=== PATIENT | female | born 1955 | race Caucasian/White ===

== ENCOUNTER 2016-04-05 17:54 | Emergency (ER) | payer MEDICARE, MEDICAID ==
[2016-04-05] MEDS ORDERED: Thiamine IV* 100 MG, Folic Acid IV* 1 MG, Multiple Vitamin IV ADULT* 10 ML in NS 0.9% 1... IV ONE (17:56)
[2016-04-05 18:44] LABS: Hematocrit 37 % (35-47); Mean Corpuscular HGB Conc 33 g/dl (31-36); Mean Corpuscular Hemoglobin 31 pg (27-31); Mean Corpuscular Volume 95 fL (80-97); Mean Platelet Volume 7 um3 (7.4-10.4); Red Blood Count 3.91 10^6/ul (4.0-5.4); Red Cell Distribution Width 15 % (10.5-15)
[2016-04-05 19:00] LABS: ALT 28 U/L (7-52); AST 99 U/L (13-39); Albumin 4.3 g/dL (3.2-5.2); Alkaline Phosphatase 61 U/L (34-104); Anion Gap 7 mmol/L (2-11); BUN/Creatinine Ratio 17.5 (8-20); Blood Urea Nitrogen 11 mg/dL (6-24); CO2 Carbon Dioxide 24 mmol/L (22-32); Calcium 9.1 mg/dL (8.6-10.3); Chloride 113 mmol/L (101-111); EGFR Non-African American 96.4 (>60); Globulin 2.5 g/dL (2-4); Glucose 92 mg/dL (70-100); Potassium 3.7 mmol/L (3.5-5.0); Sodium 144 mmol/L (133-145); Total Protein 6.8 g/dL (6.4-8.9)
[2016-04-05 19:29] LABS: TSH (Thyroid Stimulating Horm) 1.58 mcIU/mL (0.34-5.60)
[2016-04-05 19:59] LABS: Acetaminophen < 15 mcg/mL; Alcohol 296 mg/dL (<10); Salicylate < 2.50 mg/dL (<30)
[2016-04-05 21:49] VITALS: BP 117/63
[2016-04-05] MEDS ORDERED: Ibuprofen TAB* 600 MG PO ONE (22:11)
[2016-04-05] MEDS ORDERED: Ondansetron INJ* 2 MG/ML VIAL IV ONE (23:22)
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
== END 2016-04-06 00:07 | disposition home or self-care (01) ==
LOC: ED 17:54
DX: F10.129 Alcohol abuse with intoxication, unspecified (principal); T40.1X1A Poisoning by heroin, accidental (unintentional), initial encounter; Y92.9 Unspecified place or not applicable
CPT/HCPCS: 36415; 80053; 80320; 80329; 84443; 85025; 93005; 96365; 96375; 99283; A9270-GY; G0480; J2405; J3411

== ENCOUNTER 2016-05-24 21:22 | Inpatient (IN) | payer MEDICARE, MEDICAID ==
[2016-05-24] MEDS ORDERED: NS 0.9% 1000 ML* 1,000 ML IV ONE (21:23)
[2016-05-24 21:51] LABS: Hematocrit 41 % (35-47); Hemoglobin 13.5 g/dl (12.0-16.0); Mean Corpuscular HGB Conc 33 g/dl (31-36); Mean Corpuscular Hemoglobin 31 pg (27-31); Mean Corpuscular Volume 93 fL (80-97); Mean Platelet Volume 8 um3 (7.4-10.4); Red Blood Count 4.36 10^6/ul (4.0-5.4); Red Cell Distribution Width 14 % (10.5-15); White Blood Count 7.1 10^3/ul (3.5-10.8)
[2016-05-24 22:07] LABS: ALT 17 U/L (7-52); AST 27 U/L (13-39); Albumin 3.8 g/dL (3.2-5.2); Alkaline Phosphatase 48 U/L (34-104); Anion Gap 9 mmol/L (2-11); BUN/Creatinine Ratio 12.2 (8-20); Blood Urea Nitrogen 11 mg/dL (6-24); CO2 Carbon Dioxide 29 mmol/L (22-32); Chloride 100 mmol/L (101-111); Creatine Kinase 132 U/L (10-223); EGFR African American 82.1 (>60); EGFR Non-African American 63.9 (>60); Globulin 2.5 g/dL (2-4); Glucose 94 mg/dL (70-100); Potassium 2.8 mmol/L (3.5-5.0); Sodium 138 mmol/L (133-145); Total Protein 6.3 g/dL (6.4-8.9)
[2016-05-24 22:09] LABS: Troponin I 0.05 ng/mL (<0.04)
[2016-05-24 22:57] LABS: Acetaminophen < 15 mcg/mL; Alcohol < 10 mg/dL (<10)
[2016-05-24] MEDS: KCL 10 MEQ/50 ML IVPREMIX* 10 MEQ/50 ML BAG IV SCH (23:32)
[2016-05-25] MEDS: KCL 10 MEQ/50 ML IVPREMIX* 10 MEQ/50 ML BAG IV SCH ×5 (00:15→14:06)
[2016-05-25] MEDS ORDERED: LORazepam INJ* 2 MG/ML 1 ML VIAL IV PUSH ONE (01:47)
[2016-05-25] MEDS ORDERED: LORazepam INJ* 2 MG/ML 1 ML VIAL IV ONE ×2 (02:39→02:45)
[2016-05-25] MEDS ORDERED: Gabapentin CAP(*) 300 MG PO ONE (02:41)
[2016-05-25] MEDS ORDERED: LORazepam INJ* 2 MG/ML 1 ML VIAL ONE (02:45)
[2016-05-25] MEDS ORDERED: levETIRAcetam TAB* 500 MG PO ONE (02:58)
[2016-05-25] MEDS ORDERED: levETIRAcetam TAB* 500 MG ONE (03:06)
--- NOTE | 2016-05-25 03:23 | HP ---
H&P (Free Text) History and Physical: PCP: Antonio Gauthier MD Neurology: Dr Unger of [place] Date/Time of Evaluation: 05/25/2016 0325 CC: seizures HPI: Mrs Jack is a 61YO female HX seizures, alcoholism, and medication non- adherence presents reporting running out of her gabapentin ~1 week ago and running out of her levetiracetam 3 days ago due to not picking them up at the pharmacy. She began having intermittent rhythmic R myoclonus 3 days ago for which she decided to present for tonight. 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 While in the ED she has continued this. Additionally she reports a burning sensation in the R hand and to a lesser degree R foot. She is awake and alert without distress. She has been given two 1mg IV doses of lorazepam with mild improvement, but not yet breaking the seizure. I discussed the case with Dr De La O, neurology, who advised 1mg levetiracetam PO and that should the seizure break she could be discharged. However, without knowing how long she may take to break and given her known non-compliance and alcohol addiction I will CDU observe her and request a social service consult. PMedHx seizure disorder active alcoholism HTN L occipito-parietal CVA anxiety hepatitis C tobacco use disorder Allergies Iodinated Diagnostic Agents Allergy (Verified 05/25/16 01:07) Unknown Reaction Details Ketorolac Tromethamine [From Toradol] Adverse Reaction (Mild, Verified 05/25/16 01:07) Itching Ambulatory Orders Nursing to reconcile. Lidocaine PATCH 5%* [Lidoderm 5% Patch*] 1 patch TRANSDERM Q12HR 10/18/15 Multivitamins/Minerals TAB* [Theragran/minerals TAB*] 1 tab PO DAILY 10/18/15 PARoxetine HCL TAB* [Paxil TAB*] 10 mg PO DAILY 10/18/15 Gabapentin CAP(*) [Neurontin 300 CAP(*)] 600 mg PO BID #60 cap 10/20/15 Nicotine Inhaler* 10 mg INH .FIVE TIMES A DAY PRN #100 amp 10/20/15 levETIRAcetam TAB* [Keppra TAB*] 500 mg PO BID #60 tab 10/20/15 SocHx: 1/2PPD cigarettes, 1/2 pint Vodka daily, occasional marijuana, denies other recreational drugs; lives with her domestic partner, Antonio Gauthier; full code status FamHx: positive for colon CA, prostate CA, & HTN ROS: as above, otherwise reviewed and all were negative Constitutional: NAD, normally developed, well-nourished white female vitals: Vital Signs Temp 36.8 C 05/24/16 21:25 Pulse 87 05/25/16 02:00 Resp 32 05/25/16 02:48 BP 132/118 05/25/16 02:00 Pulse Ox 98 05/25/16 02:00 Intake & Output 05/24/16 05/24/16 05/25/16 11:59 23:59 11:59 Intake Total 1050 100 Balance 1050 100 Weight 68.039 kg Intake: IV Fluids 1050 100 HEENM: atraumatic; sclera/conjunctiva: non-icteric/clear; hearing: clinically intact; oropharynx: clear, mucosa moist Neck: soft tissue: non-tender; thyroid: normal Pulmonary: clear to auscultation bilaterally, good aeration, no accessory muscle use CV: RR/RR, normal S1S2, no carotid bruit, no jugular venous distention, 2+ B DP/ PT, no edema Abdominal: soft, non-distended, non-tender, no rebound/guarding/rigidity, normoactive bowel sounds, no hepatosplenomegaly or masses, no costovertebral angle tenderness Musculoskeletal: general: grossly intact; gait: currently unable to ambulate 2nd seizure Integumental: normal appearance and texture Psychiatric orientation: AA&O to PPS affect: calm mood: cooperative eye contact: good content: evasive responses: timely insight: poor Testing: Lab Results 05/24/16 05/24/16 05/24/16 Range/Units 21:35 21:35 21:35 WBC 7.1 (3.5-10.8) 10^3/ul RBC 4.36 (4.0-5.4) 10^6/ul Hgb 13.5 (12.0-16.0) g/dl Hct 41 (35-47) % MCV 93 (80-97) fL MCH 31 (27-31) pg MCHC 33 (31-36) g/dl RDW 14 (10.5-15) % Plt Count 282 (150-450) 10^3/ul MPV 8 (7.4-10.4) um3 Neut % (Auto) 53.5 (38-83) % Lymph % (Auto) 27.8 (25-47) % Rooks % (Auto) 15.6 H (1-9) % Eos % (Auto) 2.0 (0-6) % Baso % (Auto) 1.1 (0-2) % Absolute Neuts (auto) 3.8 (1.5-7.7) 10^3/ul Absolute Lymphs (auto) 2.0 (1.0-4.8) 10^3/ul Absolute Monos (auto) 1.1 H (0-0.8) 10^3/ul Absolute Eos (auto) 0.1 (0-0.6) 10^3/ul Absolute Basos (auto) 0.1 (0-0.2) 10^3/ul Absolute Nucleated RBC 0 10^3/ul Nucleated RBC % 0 INR (Anticoag Therapy) 1.06 (0.89-1.11) Sodium 138 (133-145) mmol/L Potassium 2.8 L (3.5-5.0) mmol/L Chloride 100 L (101-111) mmol/L Carbon Dioxide 29 (22-32) mmol/L Anion Gap 9 (2-11) mmol/L BUN 11 (6-24) mg/dL Creatinine 0.90 (0.51-0.95) mg/dL Est GFR ( Amer) 82.1 (>60) Est GFR (Non-Af Amer) 63.9 (>60) BUN/Creatinine Ratio 12.2 (8-20) Glucose 94 (70-100) mg/dL Lactic Acid (0.5-2.0) mmol/L Calcium 10.0 (8.6-10.3) mg/dL Total Bilirubin 0.60 (0.2-1.0) mg/dL AST 27 (13-39) U/L ALT 17 (7-52) U/L Alkaline Phosphatase 48 (34-104) U/L Ammonia (16-53) mol/L Total Creatine Kinase 132 (10-223) U/L Troponin I 0.05 H* (<0.04) ng/mL Total Protein 6.3 L (6.4-8.9) g/dL Albumin 3.8 (3.2-5.2) g/dL Globulin 2.5 (2-4) g/dL Albumin/Globulin Ratio 1.5 (1-3) Acetaminophen < 15 mcg/mL Serum Alcohol < 10 (<10) mg/dL 05/24/16 05/24/16 Range/Units 21:35 21:35 WBC (3.5-10.8) 10^3/ul RBC (4.0-5.4) 10^6/ul Hgb (12.0-16.0) g/dl Hct (35-47) % MCV (80-97) fL MCH (27-31) pg MCHC (31-36) g/dl RDW (10.5-15) % Plt Count (150-450) 10^3/ul MPV (7.4-10.4) um3 Neut % (Auto) (38-83) % Lymph % (Auto) (25-47) % Rooks % (Auto) (1-9) % Eos % (Auto) (0-6) % Baso % (Auto) (0-2) % Absolute Neuts (auto) (1.5-7.7) 10^3/ul Absolute Lymphs (auto) (1.0-4.8) 10^3/ul Absolute Monos (auto) (0-0.8) 10^3/ul Absolute Eos (auto) (0-0.6) 10^3/ul Absolute Basos (auto) (0-0.2) 10^3/ul Absolute Nucleated RBC 10^3/ul Nucleated RBC % INR (Anticoag Therapy) (0.89-1.11) Sodium (133-145) mmol/L Potassium (3.5-5.0) mmol/L Chloride (101-111) mmol/L Carbon Dioxide (22-32) mmol/L Anion Gap (2-11) mmol/L BUN (6-24) mg/dL Creatinine (0.51-0.95) mg/dL Est GFR ( Amer) (>60) Est GFR (Non-Af Amer) (>60) BUN/Creatinine Ratio (8-20) Glucose (70-100) mg/dL Lactic Acid 2.0 (0.5-2.0) mmol/L Calcium (8.6-10.3) mg/dL Total Bilirubin (0.2-1.0) mg/dL AST (13-39) U/L ALT (7-52) U/L Alkaline Phosphatase (34-104) U/L Ammonia 58 H (16-53) mol/L Total Creatine Kinase (10-223) U/L Troponin I (<0.04) ng/mL Total Protein (6.4-8.9) g/dL Albumin (3.2-5.2) g/dL Globulin (2-4) g/dL Albumin/Globulin Ratio (1-3) Acetaminophen mcg/mL Serum Alcohol (<10) mg/dL Impression: 61F presenting in status simple partial seizure 2nd medication non- adherence & active alcoholism DIAGNOSIS & PLAN Primary status simple partial seizure 2nd medication non-adherence : 1g levetiracetam PO, 600mg gabapentin PO, & 1mg lorazepam IV x2 given in ED : telemetry : seizure precautions : social service technician consult : supplemental oxygen : check UA : social service technician consult : Mckinley De La O MD neurology is aware, but not consulted : supportive care hypoKalemia : replete & recheck Secondary active alcoholism : social service technician consult as above : [facility] protocol HTN : review meds once reconciled L occipito-parietal CVA : seizure focus, no acute issues anxiety : review meds once reconciled hepatitis C : no acute issues tobacco use disorder : cessation advised, low motivation : nicotine replacement Admission Rational: CDU observation for status R simple partial seizure 2nd medication non-adherence and alcoholism DVTp: SCDs Code Status: full HCP: domestic partner, Antonio Gauthier
[2016-05-25] MEDS ORDERED: Ondansetron INJ* 2 MG/ML VIAL IV PRN (03:57)
[2016-05-25] MEDS ORDERED: Albuterol 2.5 MG/3 ML NEB.SOL* (0.083%) INH PRN (03:57)
[2016-05-25] MEDS ORDERED: Thiamine IV* 100 MG/ML 2 ML VIAL IM ONE (03:58)
[2016-05-25] MEDS ORDERED: LORazepam INJ* 2 MG/ML 1 ML VIAL IV SCH (04:00)
[2016-05-25] MEDS: NS 0.9% 1000 ML* 1,000 ML IV SCH ×2 (05:15→17:21)
[2016-05-25 06:51] LABS: BUN/Creatinine Ratio 20.8 (8-20); Calcium 8.5 mg/dL (8.6-10.3); EGFR African American 151.3 (>60); EGFR Non-African American 117.7 (>60)
[2016-05-25 07:17] LABS: Potassium 2.6 mmol/L (3.5-5.0)
[2016-05-25 07:56] LABS: Magnesium 1.5 mg/dL (1.9-2.7)
[2016-05-25] MEDS ORDERED: Magnesium Sulfate 2 GM IV* 2 GM/50 ML BAG IVPB ONE (08:25)
[2016-05-25 08:53] LABS: Troponin I 0.04 ng/mL (<0.04)
[2016-05-25] MEDS: levETIRAcetam TAB* 500 MG PO SCH ×2 (09:10→23:17)
[2016-05-25] MEDS ORDERED: LORazepam TAB(*) 1 MG PO ONE (09:16)
[2016-05-25] MEDS: Potassium Chlor TAB* 20 MEQ TAB.ER PO SCH ×2 (09:40→12:39)
[2016-05-25] MEDS: Gabapentin CAP(*) 300 MG PO SCH ×3 (09:40→23:15)
[2016-05-25] MEDS: Docusate CAP* 100 MG PO SCH ×2 (09:43→23:14)
[2016-05-25] MEDS: Omeprazole CAP* 20 MG PO SCH (09:43)
[2016-05-25] MEDS: Folic Acid TAB* 1 MG PO SCH (09:43)
[2016-05-25] MEDS: Multivitamins/Minerals TAB PO SCH (10:50)
[2016-05-25] MEDS: Thiamine TAB* 100 MG TAB PO SCH (10:50)
[2016-05-25 10:59] LABS: Urine Bacteria Absent (Absent); Urine Bilirubin Negative (Negative); Urine Glucose Negative (Negative); Urine Nitrite Negative (Negative)
[2016-05-25 11:01] LABS: Benzodiazepine Urine Screen Presumptive Positive (None Detect)
[2016-05-25] MEDS ORDERED: KCL 10 MEQ/50 ML IVPREMIX* 10 MEQ/50 ML BAG ONE ×2 (14:04→17:15)
[2016-05-25 15:06] LABS: Calcium 8.8 mg/dL (8.6-10.3); EGFR African American 161.9 (>60); EGFR Non-African American 125.9 (>60)
[2016-05-25 15:40] LABS: Potassium 3.4 mmol/L (3.5-5.0)
--- NOTE | 2016-05-25 17:18 | PN ---
Subjective Date of Service: 05/25/16 Interval History: Seen and examined several times throughout the day Admits to medication on adherence Interested in going home but remains week and was unable to stand to be discharged Has no other complaints Objective Active Medications: Acetaminophen (Tylenol Tab*) 650 mg PO Q6H PRN PRN Reason: FEVER/PAIN Albuterol (Ventolin 2.5 Mg/3 Ml Neb.Maria Luisa*) 2.5 mg INH Q2H PRN PRN Reason: SOB/WHEEZING Docusate Sodium (Colace Cap*) 200 mg PO BID [facility] Last Admin: 05/25/16 09:43 Dose: 200 mg Folic Acid (Folvite Tab*) 1 mg PO DAILY [facility] Last Admin: 05/25/16 09:43 Dose: 1 mg Gabapentin (Neurontin Cap(*)) 300 mg PO TID [facility] Last Admin: 05/25/16 13:11 Dose: 300 mg Sodium Chloride (Ns 0.9% 1000 Ml*) 1,000 mls @ 75 mls/hr IV PER RATE [facility] Last Admin: 05/25/16 05:15 Dose: 75 mls/hr Lactulose (Lactulose*) 30 ml PO TID [facility] Levetiracetam (Keppra Tab*) 500 mg PO BID [facility] Last Admin: 05/25/16 09:10 Dose: 500 mg Lorazepam (Ativan Inj*) 0 mg IV .PER WAM SCORE [facility] PRN Reason: Protocol Melatonin (Melatonin (Nf)) 3 mg PO BEDTIME PRN; Protocol PRN Reason: Sleep Multivitamins/Minerals (Theragran/Minerals Tab*) 1 tab PO DAILY [facility] Last Admin: 05/25/16 10:50 Dose: 1 tab Omeprazole (Prilosec Cap*) 20 mg PO DAILY@0600 [facility] Last Admin: 05/25/16 09:43 Dose: 20 mg Ondansetron HCl (Zofran Inj*) 4 mg IV Q6H PRN PRN Reason: NAUSEA Thiamine HCl (Vitamin B-1 Tab*) 100 mg PO DAILY [facility] Last Admin: 05/25/16 10:50 Dose: 100 mg Vital Signs 05/25/16 05/25/16 05/25/16 02:48 03:00 03:30 Temperature Pulse Rate 85 Respiratory 32 23 27 Rate Blood Pressure 128/91 (mmHg) O2 Sat by Pulse 97 Oximetry 05/25/16 05/25/16 05/25/16 04:00 05:10 05:19 Temperature 98.0 F Pulse Rate 80 Respiratory 29 20 20 Rate Blood Pressure 136/87 130/88 (mmHg) O2 Sat by Pulse 98 Oximetry 05/25/16 05/25/16 05/25/16 07:00 08:00 08:52 Temperature 97.4 F 97.3 F Pulse Rate 72 81 69 Respiratory 20 22 24 Rate Blood Pressure 121/78 131/87 (mmHg) O2 Sat by Pulse 95 98 99 Oximetry 05/25/16 05/25/16 05/25/16 09:00 09:39 09:40 Temperature Pulse Rate Respiratory 18 18 18 Rate Blood Pressure (mmHg) O2 Sat by Pulse Oximetry 05/25/16 05/25/16 05/25/16 10:01 11:02 11:39 Temperature 98.5 F Pulse Rate 84 79 Respiratory 16 16 Rate Blood Pressure 111/86 116/75 (mmHg) O2 Sat by Pulse 99 99 Oximetry 05/25/16 05/25/16 05/25/16 11:40 13:03 13:11 Temperature 98.2 F Pulse Rate 86 Respiratory 16 20 18 Rate Blood Pressure 109/66 (mmHg) O2 Sat by Pulse 100 Oximetry 05/25/16 05/25/16 15:11 15:17 Temperature 98.5 F Pulse Rate 81 Respiratory 18 18 Rate Blood Pressure 107/74 (mmHg) O2 Sat by Pulse 100 Oximetry Appearance: disheveled, NAD Eyes: No Scleral Icterus, PERRLA Ears/Nose/Mouth/Throat: Mucous Membranes Moist, - - poor dentition Neck: NL Appearance and Movements; NL JVP, Trachea Midline Respiratory: Symmetrical Chest Expansion and Respiratory Effort, Clear to Auscultation Cardiovascular: RRR Abdominal: NL Sounds; No Tenderness; No Distention, No Hepatosplenomegaly Lymphatic: No Cervical Adenopathy Extremities: No Edema Neurological: Alert and Oriented x 3 Result Diagrams: 05/24/16 21:35 05/25/16 14:30 Assess/Plan/Problems-Billing Assessment: 61 yo F h/o CVA c/b seizure disorder, active etoh abuse and med non adherence p/ w partial seizures - Patient Problems (1) Seizure disorder Comment: keppra 1000mg on arrival and ativan c/w keppra 500BID (2) Hepatic encephalopathy Comment: More lethargic in afternoon Start lactulose and follow for improved mentation doubt post ictal state in setting of partial seizures (3) Polysubstance abuse Comment: opioids, benzo, MJ on utox WAM for etoh withdrawal (4) Non compliance with medical treatment Comment: counseled compliance (5) DVT prophylaxis Comment: heparin sc.
[2016-05-25] MEDS ORDERED: Potassium Chlor TAB* 20 MEQ TAB.ER PO ONE (17:19)
[2016-05-25 18:17] LABS: EGFR African American 161.9 (>60); EGFR Non-African American 125.9 (>60); Potassium 3.7 mmol/L (3.5-5.0)
[2016-05-25] MEDS: LACTULOSE* 30 ML UDC PO SCH (23:19)
[2016-05-25] MEDS: Heparin VIAL(*) 5000 UNITS/ML VIAL (FIVE THOUSAND) SUBCUT SCH (23:21)
[2016-05-25] MEDS: Acetaminophen TAB* 325 MG PO PRN (23:39)
[2016-05-26] MEDS: CMCS Melatonin (NF) 3 MG TAB PO PRN ×2 (02:08→21:43)
[2016-05-26] MEDS: Heparin VIAL(*) 5000 UNITS/ML VIAL (FIVE THOUSAND) SUBCUT SCH ×3 (05:35→21:43)
[2016-05-26] MEDS: Omeprazole CAP* 20 MG PO SCH (05:37)
[2016-05-26 05:41] LABS: BUN/Creatinine Ratio 16.7 (8-20); Calcium 8.7 mg/dL (8.6-10.3); EGFR African American 197.9 (>60); EGFR Non-African American 153.9 (>60); Potassium 3.8 mmol/L (3.5-5.0)
[2016-05-26] MEDS: NS 0.9% 1000 ML* 1,000 ML IV SCH (08:05)
[2016-05-26] MEDS: LACTULOSE* 30 ML UDC PO SCH ×3 (08:05→20:44)
[2016-05-26] MEDS: levETIRAcetam TAB* 500 MG PO SCH ×2 (08:06→20:44)
[2016-05-26] MEDS: Folic Acid TAB* 1 MG PO SCH (08:06)
[2016-05-26] MEDS: Multivitamins/Minerals TAB PO SCH (08:06)
[2016-05-26] MEDS: Thiamine TAB* 100 MG TAB PO SCH (08:06)
[2016-05-26] MEDS: Gabapentin CAP(*) 300 MG PO SCH ×3 (08:06→20:43)
[2016-05-26] MEDS: Docusate CAP* 100 MG PO SCH ×2 (08:07→20:43)
[2016-05-26] MEDS: LORazepam TAB(*) 1 MG PO SCH ×3 (10:31→15:29)
--- NOTE | 2016-05-26 12:53 | RAD ---
INDICATION: Right arm weakness COMPARISON: Multiple previous brain CTs, most recently dated October 18, 2015 TECHNIQUE: Contiguous axial sections of the brain were obtained from the skull base to the vertex without contrast. FINDINGS: The ventricles, cisterns and sulci are within normal limits. At the posterior right parietal lobe (image 20 of 32) there is a 2.5 cm cortical hypodensity that is similar in appearance to findings on the October 18, 2015 CT of the brain. Elsewhere the weiss-white matter differentiation is adequately maintained and there is no sulcal effacement. No significant focal abnormality or mass effect is present. There is no evidence for intracranial hemorrhage. No significant focal osseous abnormality is present. There is a minor degree of hyperostosis frontalis interna. The visualized portion of the paranasal sinuses and mastoid air cells appear clear. IMPRESSION: Stable focus of encephalomalacia involving the cortex of the posterior left parietal lobe as described above in this otherwise nonacute brain CT.
--- NOTE | 2016-05-26 14:52 | CONSULT ---
Consult Consult: 05/26/16 neurology consult 61 yo RHF, etoh/polysubstance abuse, localization related seizure disorder (in context of chronic left parieto-occipital encephalomalacia on imaging (? due to stroke vs she also suggests remote TBI vs 09/13 consult suggests PRES), prior seizures per notes with post ictal right hemiparesis and/or sensory deficits ( she concurs), at times right gaze deviation and/or field cut), HTN, HCV, presented night of 05/24 w/ right arm jerking movements and right arm and leg paresthesias in context of med non adherence/running out of seizure meds. Given Ativan and keppra load in ED for suspected breakthrough seizure; since being admitted 05/25 overnight had had persistent variable R sided weakness and sensory asymmetry. She suggests baseline chronic R sided sensory asym but good motor functional use; no gait assist devices. Prior neuro consult notes reviewed seen by dr reyes 10/16 (seizure; possible Xanax withdrawal), dr jeter 12/15. She has seen dr Peters in clinic in the past (she says couple times and not recently), has been on PHE, VPA, and more recently on LEV 500 bid and john 300 tid, with compliance concerns per hospital records regardless of agent. She no longer sees Dr Peters; says she now sees a Dr Liu in [facility]. Also states that she is on Ativan 0.5mg bid (ostensibly for seizure rescue but uses daily). Allergies/Meds per may PMH - as above, plus: L femur ORIF, suicide attempt/drug OD, hepatic encephalopathy FH - htn, colon and prostate ca per chart SH - lives with partner, THC, tobacco and daily etoh use ROS - 10 point review limited by altered mental status/limited cooperation 10 point review as per hpi, otherwise negative general Examination: no apparent distress, no edema, female of stated age; vs per emr Neurologic Examination Mental Status: alert and oriented; affect reactive, no neglect, fluent speech Cranial Nerves: Funduscopy deferred, otherwise II-XII intact; vega full to confrontation Motor: normal bulk, tone throughout; no tremor; right arm and leg motor variable effort and better with coaching, but at least antigravity vs left side normal. At times has non rhythmic right arm dropping motions. Right arm drift. Sensory: vibration decreased comparatively right side Reflexes: 2 throughout symmetrically. Plantar responses are equivocal Coordination: weakness limited left Gait: deferred Serologies: - Chem, CBC, coags, trop, LA, LFTs, cpk, NH3 are all normal or negative; K low admission, now corrected; ua + LE; UDS opiate, benzo, THC positive - Priors: esr, aic, b12, tsh, pth, bnp, spep, hiv were all neg; csg analysis essentially neg Imaging: - head CT reviewed (multiple prior CTs and brain MRIs (last of latter 12/15) and has remote stable left parieto-occipital encephalomalacia - 09/13 mra head and neck negative - 11/[address] neg - TTE 09/14 neg - 10/16 cxr neg Phys: mult EEGs variably had enceph and L temp/hemisphere inter ictal discharges Impression: 61 yo RHF, HTN, HCV, ongoing etoh/history of polysubstance abuse, localization related seizure disorder (in context of chronic left parieto-occipital encephalomalacia, with history of post ictal right hemiparesis and/or sensory deficits, p/w likely recurrent partial seizures in context of med non adherence /running out of seizure meds. Has had persistent variable R sided weakness and sensory asymmetry, with variable effort on exam, ie may represent any combination of post ictal deficit, baseline deficit (all hospital evals bijan or post ictal so baseline function unclear; she suggests predom sensory asymmetry) , embellishment. encouraged to exercise right side, etoh abstention, adherence to AED regimen (per her currently managed not through local neuro group). would cont 2 AEDs, get PT involved. unclear to me also why she is on daily benzos ( history of ? withdrawal and possibly related seizure in past), inocencio given polysubstance use and h/o OD in past.
--- NOTE | 2016-05-26 16:19 | PN ---
Subjective Date of Service: 05/26/16 Interval History: Endorses WAY, anxiety and tremor. Denies visual, auditory, tactile hallucinations Feels she does not have control of right arm and leg Objective Active Medications: Acetaminophen (Tylenol Tab*) 650 mg PO Q6H PRN PRN Reason: FEVER/PAIN Last Admin: 05/25/16 23:39 Dose: 650 mg Albuterol (Ventolin 2.5 Mg/3 Ml Neb.Maria Luisa*) 2.5 mg INH Q2H PRN PRN Reason: SOB/WHEEZING Docusate Sodium (Colace Cap*) 200 mg PO BID [facility] Last Admin: 05/26/16 08:07 Dose: 200 mg Folic Acid (Folvite Tab*) 1 mg PO DAILY [facility] Last Admin: 05/26/16 08:06 Dose: 1 mg Gabapentin (Neurontin Cap(*)) 300 mg PO TID [facility] Last Admin: 05/26/16 13:54 Dose: 300 mg Heparin Sodium (Porcine) (Heparin Vial(*)) 5,000 units SUBCUT Q8HR [facility] Last Admin: 05/26/16 13:54 Dose: 5,000 units Lactulose (Lactulose*) 30 ml PO TID [facility] Last Admin: 05/26/16 13:54 Dose: 30 ml Levetiracetam (Keppra Tab*) 500 mg PO BID [facility] Last Admin: 05/26/16 08:06 Dose: 500 mg Lorazepam (Ativan Tab(*)) 0 mg PO .PER WAM SCORE [facility] PRN Reason: Protocol Last Admin: 05/26/16 15:29 Dose: 1 mg Melatonin (Melatonin (Nf)) 3 mg PO BEDTIME PRN; Protocol PRN Reason: Sleep Last Admin: 05/26/16 02:08 Dose: 3 mg Multivitamins/Minerals (Theragran/Minerals Tab*) 1 tab PO DAILY [facility] Last Admin: 05/26/16 08:06 Dose: 1 tab Omeprazole (Prilosec Cap*) 20 mg PO DAILY@0600 [facility] Last Admin: 05/26/16 05:37 Dose: Not Given Ondansetron HCl (Zofran Inj*) 4 mg IV Q6H PRN PRN Reason: NAUSEA Last Admin: 05/26/16 08:05 Dose: 4 mg Thiamine HCl (Vitamin B-1 Tab*) 100 mg PO DAILY [facility] Last Admin: 05/26/16 08:06 Dose: 100 mg Vital Signs 05/25/16 05/25/16 05/25/16 17:43 19:14 19:15 Temperature 97.7 F 97.9 F Pulse Rate 95 93 Respiratory 19 20 Rate Blood Pressure 97/28 102/60 (mmHg) O2 Sat by Pulse 82 Oximetry 05/25/16 05/25/16 05/25/16 19:32 21:33 23:15 Temperature 98.7 F Pulse Rate 82 Respiratory 20 20 20 Rate Blood Pressure 111/77 (mmHg) O2 Sat by Pulse 98 Oximetry 05/25/16 05/26/16 05/26/16 23:33 00:55 01:17 Temperature 98.1 F 97.5 F Pulse Rate 81 83 78 Respiratory 16 20 16 Rate Blood Pressure 141/86 107/81 (mmHg) O2 Sat by Pulse 100 97 100 Oximetry 05/26/16 05/26/16 05/26/16 03:31 05:08 08:06 Temperature 97.4 F Pulse Rate 80 78 Respiratory 16 16 20 Rate Blood Pressure 113/80 126/87 (mmHg) O2 Sat by Pulse 94 96 Oximetry 05/26/16 05/26/16 05/26/16 08:50 09:22 10:06 Temperature 99.3 F Pulse Rate 68 77 Respiratory 18 16 18 Rate Blood Pressure 117/76 (mmHg) O2 Sat by Pulse 99 99 Oximetry 05/26/16 05/26/16 05/26/16 10:30 10:31 12:31 Temperature Pulse Rate Respiratory 18 18 16 Rate Blood Pressure (mmHg) O2 Sat by Pulse Oximetry 05/26/16 05/26/16 05/26/16 13:28 13:54 13:55 Temperature 99.8 F Pulse Rate 77 Respiratory 16 18 18 Rate Blood Pressure 114/83 (mmHg) O2 Sat by Pulse 97 Oximetry 05/26/16 05/26/16 05/26/16 15:10 15:29 15:54 Temperature 97.5 F Pulse Rate 70 Respiratory 18 18 16 Rate Blood Pressure 172/152 (mmHg) O2 Sat by Pulse 96 Oximetry 05/26/16 15:55 Temperature Pulse Rate Respiratory 16 Rate Blood Pressure (mmHg) O2 Sat by Pulse Oximetry Oxygen Devices in Use Now: None Appearance: disheveled Eyes: No Scleral Icterus, PERRLA Ears/Nose/Mouth/Throat: Mucous Membranes Moist, - - poor dentition Neck: NL Appearance and Movements; NL JVP, Trachea Midline Respiratory: Symmetrical Chest Expansion and Respiratory Effort, Clear to Auscultation Cardiovascular: RRR Abdominal: NL Sounds; No Tenderness; No Distention, No Hepatosplenomegaly Neurological: Alert and Oriented x 3, - - low frequency tremor in right arm an dleg resolves with distraction, +asterixis, 2/5 strength in right arm and leg but at times is able to produce more strength when coached Result Diagrams: 05/24/16 21:35 05/26/16 05:18 Microbiology and Other Data: Microbiology 05/25/16 10:12 Urine Culture - Final Urine Assess/Plan/Problems-Billing Assessment: 61 yo F h/o CVA c/b seizure disorder, active etoh abuse and med non adherence p/ w partial seizures c/b right arm and leg weakness - Patient Problems (1) Seizure disorder Comment: keppra 1000mg on arrival and ativan c/w keppra 500BID post ictal states in past have been notable for right arm and leg weakness and uncoordination similar to this stay. Strength and fxn have been variable throughout the day. Was seen by PT and GEORGE has been recommended which I discussed with pt (2) Hepatic encephalopathy Comment: lactulose started with improved mentation (3) Polysubstance abuse Comment: opioids, benzo, MJ on utox WAM for etoh withdrawal (4) Non compliance with medical treatment Comment: counseled compliance (5) DVT prophylaxis Comment: heparin sc.
[2016-05-27] MEDS: Acetaminophen TAB* 325 MG PO PRN ×3 (04:04→20:21)
[2016-05-27] MEDS: Heparin VIAL(*) 5000 UNITS/ML VIAL (FIVE THOUSAND) SUBCUT SCH ×3 (06:01→22:09)
[2016-05-27] MEDS: Omeprazole CAP* 20 MG PO SCH (06:02)
[2016-05-27] MEDS ORDERED: Influenza VAC *QUAD* 2016-17* 0.5 ML SYRINGE IM ONE (09:00)
[2016-05-27] MEDS: LACTULOSE* 30 ML UDC PO SCH ×3 (09:21→20:19)
[2016-05-27] MEDS: Gabapentin CAP(*) 300 MG PO SCH ×3 (09:21→20:20)
[2016-05-27] MEDS: Multivitamins/Minerals TAB PO SCH (09:23)
[2016-05-27] MEDS: Docusate CAP* 100 MG PO SCH ×2 (09:23→20:23)
[2016-05-27] MEDS: Thiamine TAB* 100 MG TAB PO SCH (09:23)
[2016-05-27] MEDS: levETIRAcetam TAB* 500 MG PO SCH ×2 (09:24→20:22)
[2016-05-27] MEDS: Folic Acid TAB* 1 MG PO SCH (09:24)
[2016-05-27] MEDS: LORazepam TAB(*) 1 MG PO PRN ×2 (09:24→20:21)
[2016-05-27] MEDS ORDERED: levETIRAcetam TAB* 500 MG PO ONE (14:14)
--- NOTE | 2016-05-27 14:27 | PN ---
Progress Note - Progress Note SOAP: 05/27/16 neurology follow up note 61 yo RHF, etoh/polysubstance abuse, hepatic encephalopathy, depression/h/o OD, localization related seizure disorder (in context of chronic left parieto- occipital encephalomalacia on imaging, seizures with post ictal right hemiparesis and/or sensory issues, presented night of 05/24 w/ right arm jerking movements and right arm and leg paresthesias in context of med non adherence/ running out of seizure meds. Given Ativan and keppra load in ED for suspected breakthrough seizure; since being admitted 05/25 overnight had had persistent variable R sided weakness and sensory asymmetry. Outpatient compliance poor; unclear with whom she is following neuro chavez (has seen dr Peters in past; now says she saw Dr Liu in [place] just once). Has been back on baseline LEV 500 bid and john 300 tid for past 2+ days. EEG done today reviewed and has inter ictal L temp spikes, and an ictal event consisting of L parietal alpha activity then slowing, preceded by her noting she is going to have a seizure and burning right sided dysesthesias (but only as seizure aura; denies dysesthesias at other times) Exam with improved right arm weakness c/w yest; some drift; right leg variable effort i/p: 61 yo RHF, etoh/polysubstance abuse, h/o hepatic encephalopathy, depression w/ h /o OD, localization related seizure disorder (in context of chronic left parieto -occipital encephalomalacia on imaging and med non compliance. Plan d/w med team and agreed on: 1. keppra 1000mg po load, then inc maint to 500mg tid 2. john 300mg tid continue 3. PT, ? rehab 4. longterm neuro follow up TBD
[2016-05-27] MEDS ORDERED: LORazepam INJ* 2 MG/ML 1 ML VIAL IV PUSH ONE (14:40)
[2016-05-27] MEDS ORDERED: Mouth Piece, Nicotine* 1 EACH CARTRIDGE ONE (17:11)
[2016-05-27] MEDS: Nicotine Inhaler* 10 MG AMP INH PRN (17:12)
--- NOTE | 2016-05-27 18:15 | PN ---
Subjective Date of Service: 05/27/16 Interval History: pt c/o intermittent R arm shaking and "muscle spasms" in R arm and R leg Requests Ativan Objective Active Medications: Acetaminophen (Tylenol Tab*) 650 mg PO Q6H PRN PRN Reason: FEVER/PAIN Last Admin: 05/27/16 13:45 Dose: 650 mg Albuterol (Ventolin 2.5 Mg/3 Ml Neb.Maria Luisa*) 2.5 mg INH Q2H PRN PRN Reason: SOB/WHEEZING Docusate Sodium (Colace Cap*) 200 mg PO BID [facility] Last Admin: 05/27/16 09:23 Dose: 200 mg Folic Acid (Folvite Tab*) 1 mg PO DAILY [facility] Last Admin: 05/27/16 09:24 Dose: 1 mg Gabapentin (Neurontin Cap(*)) 300 mg PO TID [facility] Last Admin: 05/27/16 13:45 Dose: 300 mg Heparin Sodium (Porcine) (Heparin Vial(*)) 5,000 units SUBCUT Q8HR [facility] Last Admin: 05/27/16 13:46 Dose: 5,000 units Lactulose (Lactulose*) 30 ml PO TID [facility] Last Admin: 05/27/16 13:46 Dose: 30 ml Levetiracetam (Keppra Tab*) 500 mg PO TID [facility] Lorazepam (Ativan Tab(*)) 0 mg PO .PER WAM SCORE [facility] PRN Reason: Protocol Last Admin: 05/26/16 15:29 Dose: 1 mg Lorazepam (Ativan Tab(*)) 1 mg PO Q12H PRN PRN Reason: ANXIETY Last Admin: 05/27/16 09:24 Dose: 1 mg Melatonin (Melatonin (Nf)) 3 mg PO BEDTIME PRN; Protocol PRN Reason: Sleep Last Admin: 05/26/16 21:43 Dose: 3 mg Multivitamins/Minerals (Theragran/Minerals Tab*) 1 tab PO DAILY [facility] Last Admin: 05/27/16 09:23 Dose: 1 tab Nicotine (Nicotine Inhaler*) 10 mg INH Q2H PRN PRN Reason: CRAVING Last Admin: 05/27/16 17:12 Dose: 10 mg Omeprazole (Prilosec Cap*) 20 mg PO DAILY@0600 [facility] Last Admin: 05/27/16 06:02 Dose: 20 mg Ondansetron HCl (Zofran Inj*) 4 mg IV Q6H PRN PRN Reason: NAUSEA Last Admin: 05/26/16 08:05 Dose: 4 mg Thiamine HCl (Vitamin B-1 Tab*) 100 mg PO DAILY [facility] Last Admin: 05/27/16 09:23 Dose: 100 mg Vital Signs 05/26/16 05/26/16 05/26/16 20:00 20:10 20:43 Temperature 98.2 F Pulse Rate 76 87 Respiratory 18 20 20 Rate Blood Pressure 108/73 (mmHg) O2 Sat by Pulse 100 81 Oximetry 05/26/16 05/26/16 05/26/16 21:00 21:26 22:43 Temperature 97.4 F 97.4 F Pulse Rate 76 76 Respiratory 18 18 18 Rate Blood Pressure 115/85 115/85 (mmHg) O2 Sat by Pulse 100 100 Oximetry 05/26/16 05/27/16 05/27/16 23:48 01:22 03:07 Temperature Pulse Rate 90 86 75 Respiratory 22 Rate Blood Pressure 114/75 130/97 132/80 (mmHg) O2 Sat by Pulse 98 98 Oximetry 05/27/16 05/27/16 05/27/16 03:43 03:51 04:13 Temperature 97.8 F 97.8 F Pulse Rate 84 84 92 Respiratory 18 Rate Blood Pressure 131/81 131/81 110/74 (mmHg) O2 Sat by Pulse 98 98 100 Oximetry 05/27/16 05/27/16 05/27/16 04:42 06:05 06:53 Temperature Pulse Rate 77 73 82 Respiratory 19 16 Rate Blood Pressure 136/78 105/73 100/71 (mmHg) O2 Sat by Pulse 85 99 98 Oximetry 05/27/16 05/27/16 05/27/16 07:50 09:21 09:24 Temperature Pulse Rate Respiratory 20 12 18 Rate Blood Pressure (mmHg) O2 Sat by Pulse Oximetry 05/27/16 05/27/16 05/27/16 09:40 09:48 10:43 Temperature 97.2 F 97.7 F Pulse Rate 66 80 80 Respiratory 19 16 14 Rate Blood Pressure 114/82 112/77 (mmHg) O2 Sat by Pulse 96 100 100 Oximetry 05/27/16 05/27/16 05/27/16 11:21 11:30 13:45 Temperature 97.6 F Pulse Rate 78 Respiratory 16 16 18 Rate Blood Pressure 96/62 (mmHg) O2 Sat by Pulse 99 Oximetry 05/27/16 05/27/16 05/27/16 15:14 15:45 16:03 Temperature 97.7 F Pulse Rate 83 Respiratory 20 18 Rate Blood Pressure 107/75 (mmHg) O2 Sat by Pulse 99 99 Oximetry Oxygen Devices in Use Now: None Appearance: 61 yo f in nAd, aAOx3, poor historian Eyes: No Scleral Icterus, PERRLA Ears/Nose/Mouth/Throat: NL Teeth, Lips, Gums, Mucous Membranes Moist Neck: NL Appearance and Movements; NL JVP, Trachea Midline Respiratory: Symmetrical Chest Expansion and Respiratory Effort, Clear to Auscultation Cardiovascular: NL Sounds; No Murmurs; No JVD, RRR Abdominal: NL Sounds; No Tenderness; No Distention Lymphatic: No Cervical Adenopathy Extremities: No Edema, No Clubbing, Cyanosis Skin: No Rash or Ulcers, No Nodules or Sclerosis Neurological: Alert and Oriented x 3, - - R pronator drift, R arm at 4+/5 Result Diagrams: 05/24/16 21:35 05/26/16 05:18 Microbiology and Other Data: Microbiology 05/25/16 10:12 Urine Culture - Final Urine Assess/Plan/Problems-Billing Assessment: 61 yo F h/o CVA c/b seizure disorder, active etoh abuse and med non adherence p/ w partial seizures c/b right arm and leg weakness - Patient Problems (1) Seizure disorder Comment: according to EEG pt has epileptiform discharges when c/o r arm muscle spasms. D/w neurology. will increase Keppra to TID. Cont Neurontin. Also will keep Ativan at a minimal dose due to h/o benzodiazepine OD in the past. PT eval appreciated . STR recommended CT shows known left encephalomalacia (2) Hepatic encephalopathy Comment: lactulose started with improved mentation Resolved. will decrease Lactulose to BID (3) Polysubstance abuse Comment: opioids, benzo, MJ on urine drug screen WAM for etoh withdrawal cont (4) Non compliance with medical treatment Comment: counseled compliance (5) DVT prophylaxis Comment: heparin sc. Status and Disposition: Medically stable for discharge
[2016-05-27] MEDS: CMCS Melatonin (NF) 3 MG TAB PO PRN (20:23)
[2016-05-28] MEDS: Omeprazole CAP* 20 MG PO SCH (05:28)
[2016-05-28] MEDS: Heparin VIAL(*) 5000 UNITS/ML VIAL (FIVE THOUSAND) SUBCUT SCH ×3 (05:31→20:54)
[2016-05-28] MEDS: Nicotine Inhaler* 10 MG AMP INH PRN ×2 (06:13→14:07)
[2016-05-28] MEDS: levETIRAcetam TAB* 500 MG PO SCH ×3 (07:39→20:44)
[2016-05-28] MEDS: LACTULOSE* 30 ML UDC PO SCH ×2 (07:39→20:44)
[2016-05-28] MEDS: Gabapentin CAP(*) 300 MG PO SCH ×3 (07:39→20:43)
[2016-05-28] MEDS: LORazepam TAB(*) 1 MG PO PRN ×2 (07:39→20:53)
[2016-05-28] MEDS: Thiamine TAB* 100 MG TAB PO SCH (07:39)
[2016-05-28] MEDS: Multivitamins/Minerals TAB PO SCH (07:40)
[2016-05-28] MEDS: Folic Acid TAB* 1 MG PO SCH (07:40)
[2016-05-28] MEDS: Docusate CAP* 100 MG PO SCH ×3 (07:42→20:47)
--- NOTE | 2016-05-28 15:15 | EEG ---
ELECTROENCEPHALOGRAPHY: DATE OF STUDY: DATE OF DICTATION: 05/28/16 - ROOM #416 LOCATION: The patient is an inpatient. ORDERING PHYSICIAN: Not listed. CLINICAL PROBLEM: This is a 61-year-old woman with a history of seizures, alcohol abuse, as well as medication noncompliance and stroke in the left parietooccipital region. She came to the emergency department with complaints of a burning sensation in the right hand and to a lesser degree in the right foot. EEG is requested to evaluate for epileptiform abnormalities. MEDICATIONS: 1. Lorazepam. 2. Zofran. 3. Melatonin. 4. Albuterol. 5. Tylenol. 6. Omeprazole. 7. Heparin. 8. Vitamin B1. 9. Multivitamin. 10. Levetiracetam. 11. Lactulose. 12. Gabapentin. 13. Folvite. 14. Colace. REPORT: The most notable feature of this EEG is the presence of 2 populations of epileptiform discharges as well as an electroclinical seizure. The discharges are most abundant in the left temporal region where they are maximum at F7 and T3 with a field to T5. These discharges are high-voltage spike and slow waves in morphology. In addition, in this region, there is polymorphic delta and theta range slowing with a loss of faster frequency activity. The second population of discharges is noted primarily at O1 and PZ. These discharges are of relatively low amplitude and less frequent than the left temporal discharges. There is also independent underlying polymorphic slowing in this region. Approximately, 8 minutes into the recording, there was a seizure, which emanated from the left parietooccipital region and spread into the left temporal region. First, there was a buildup of rhythmic 2 to 3 Hz activity at P3 and O1 with overriding faster frequency activity. This activity spread into the left temporal region, most notably at T3 and T5 and became intermixed with sharp features including occasional spike discharges. As the seizure continued , the activity spread a bit more anteriorly into F7 and the rhythmic activity increased to an approximately 8 Hz, sharply contoured rhythm, which then lasted approximately 10 to 15 seconds before becoming intermixed with more slow wave activity. At the termination of the seizure, there were repetitive discharges noted at P3 at approximately 3 to 4 Hz and the seizure ended abruptly after nearly 2 minutes. At the beginning of the seizure, the patient was noted to be picking at the right side of her tongue with her left hand. She began moaning, stating that she was having one of the seizures and began expressing pain and grabbing her right hand. As soon as the seizure ended, she stated that the pain had begun to fade and then the pain stopped several seconds after the termination of the seizure. Otherwise, the background was notable for an asymmetry between the right and left hemispheres. The right hemisphere showed normal organization with clearly defined anterior to posterior voltage and frequency gradients. There was a well -defined posterior dominant rhythm of 10 Hz, which was symmetrical and showed normal reactivity. Anteriorly, there was an expected pattern of low voltage, irregular, faster frequencies. Over the left hemisphere, there were identifiable anterior to posterior voltage and frequency gradients. The posterior dominant rhythm was slower, in the range of 8 to 9 Hz, but showed normal reactivity. In both hemispheres, there was an excessive amount of beta activity noted diffusely. In addition, intermixed within the background were areas of focal slowing and discharges as noted above in the left hemisphere. Attenuation of the occipital rhythm accompanied drowsiness. The sleep background showed appropriate organization with well-developed sleep spindles and vertex waves, which were better seen in the right than the left hemisphere. The sleep transients showed appropriate morphology. CLINICAL IMPRESSION: This is an abnormal waking and sleep EEG due to the presence of a single seizure arising from the left parietooccipital region as well as slowing and discharges, which are most abundant in the left temporal region but also noted in the left parietooccipital region and are further described above. The seizure arising from the left parietooccipital region was manifested by pain in the right hand. The findings are suggestive of focal areas of neuronal dysfunction in the left temporal and parietooccipital regions with increased epileptic potential and an active seizure focus in the left parietooccipital region. [id number]/[facility] #: [id number] MTDD
--- NOTE | 2016-05-28 15:16 | PN ---
Subjective Date of Service: 05/28/16 Interval History: pt feels well. Still c/o R sided weakness, but episodes of R arm spasms have resolved since yesterday Objective Active Medications: Acetaminophen (Tylenol Tab*) 650 mg PO Q6H PRN PRN Reason: FEVER/PAIN Last Admin: 05/27/16 20:21 Dose: 650 mg Albuterol (Ventolin 2.5 Mg/3 Ml Neb.Maria Luisa*) 2.5 mg INH Q2H PRN PRN Reason: SOB/WHEEZING Docusate Sodium (Colace Cap*) 200 mg PO BID [facility] Last Admin: 05/28/16 07:42 Dose: Not Given Folic Acid (Folvite Tab*) 1 mg PO DAILY [facility] Last Admin: 05/28/16 07:40 Dose: 1 mg Gabapentin (Neurontin Cap(*)) 300 mg PO TID [facility] Last Admin: 05/28/16 14:07 Dose: 300 mg Heparin Sodium (Porcine) (Heparin Vial(*)) 5,000 units SUBCUT Q8HR [facility] Last Admin: 05/28/16 14:07 Dose: 5,000 units Lactulose (Lactulose*) 30 ml PO BID [facility] Last Admin: 05/28/16 07:39 Dose: 30 ml Levetiracetam (Keppra Tab*) 500 mg PO TID [facility] Last Admin: 05/28/16 14:07 Dose: 500 mg Lorazepam (Ativan Tab(*)) 0 mg PO .PER WAM SCORE [facility] PRN Reason: Protocol Last Admin: 05/26/16 15:29 Dose: 1 mg Lorazepam (Ativan Tab(*)) 1 mg PO Q12H PRN PRN Reason: ANXIETY Last Admin: 05/28/16 07:39 Dose: 1 mg Melatonin (Melatonin (Nf)) 3 mg PO BEDTIME PRN; Protocol PRN Reason: Sleep Last Admin: 05/27/16 20:23 Dose: 3 mg Multivitamins/Minerals (Theragran/Minerals Tab*) 1 tab PO DAILY [facility] Last Admin: 05/28/16 07:40 Dose: 1 tab Nicotine (Nicotine Inhaler*) 10 mg INH Q2H PRN PRN Reason: CRAVING Last Admin: 05/28/16 14:07 Dose: 10 mg Omeprazole (Prilosec Cap*) 20 mg PO DAILY@0600 [facility] Last Admin: 05/28/16 05:28 Dose: 20 mg Ondansetron HCl (Zofran Inj*) 4 mg IV Q6H PRN PRN Reason: NAUSEA Last Admin: 05/26/16 08:05 Dose: 4 mg Thiamine HCl (Vitamin B-1 Tab*) 100 mg PO DAILY [facility] Last Admin: 05/28/16 07:39 Dose: 100 mg Vital Signs 05/27/16 05/27/16 05/27/16 15:14 15:45 16:03 Temperature 97.7 F Pulse Rate 83 Respiratory 20 18 Rate Blood Pressure 107/75 (mmHg) O2 Sat by Pulse 99 99 Oximetry 05/27/16 05/27/16 05/27/16 19:13 20:00 20:20 Temperature 97.8 F Pulse Rate 87 Respiratory 16 20 20 Rate Blood Pressure 113/79 (mmHg) O2 Sat by Pulse 100 Oximetry 05/27/16 05/27/16 05/27/16 20:21 20:26 22:21 Temperature Pulse Rate 82 Respiratory 20 16 16 Rate Blood Pressure (mmHg) O2 Sat by Pulse 99 Oximetry 05/27/16 05/28/16 05/28/16 23:12 04:07 07:09 Temperature 98.0 F 97.9 F 98.4 F Pulse Rate 85 86 87 Respiratory 16 16 14 Rate Blood Pressure 111/75 127/77 137/89 (mmHg) O2 Sat by Pulse 97 99 100 Oximetry 05/28/16 05/28/16 05/28/16 07:39 08:42 09:06 Temperature Pulse Rate 90 Respiratory 18 16 15 Rate Blood Pressure (mmHg) O2 Sat by Pulse 98 Oximetry 05/28/16 05/28/16 09:39 14:07 Temperature Pulse Rate Respiratory 16 18 Rate Blood Pressure (mmHg) O2 Sat by Pulse Oximetry Oxygen Devices in Use Now: None Appearance: 61 yo f in nAd, aAOx3 Eyes: No Scleral Icterus, PERRLA Ears/Nose/Mouth/Throat: NL Teeth, Lips, Gums, Mucous Membranes Moist Neck: NL Appearance and Movements; NL JVP, Trachea Midline Respiratory: Symmetrical Chest Expansion and Respiratory Effort, Clear to Auscultation Cardiovascular: NL Sounds; No Murmurs; No JVD, RRR Abdominal: NL Sounds; No Tenderness; No Distention Lymphatic: No Cervical Adenopathy Extremities: No Edema, No Clubbing, Cyanosis Skin: No Rash or Ulcers, No Nodules or Sclerosis Neurological: Alert and Oriented x 3, - - mild R pronator drift, handgrip on R at 4+/5, R leg at 4+/5 Result Diagrams: 05/24/16 21:35 05/26/16 05:18 Microbiology and Other Data: Microbiology 05/25/16 10:12 Urine Culture - Final Urine Assess/Plan/Problems-Billing Assessment: 61 yo F h/o CVA c/b seizure disorder, active etoh abuse and med non adherence p/ w partial seizures c/b right arm and leg weakness - Patient Problems (1) Seizure disorder Comment: according to EEG pt had epileptiform discharges when c/o r arm muscle spasms. Cont increased Keppra to TID. Cont Neurontin. Keep Ativan at a minimal dose due to h/o benzodiazepine OD in the past. PT eval appreciated . STR recommended CT shows known left encephalomalacia (2) Hepatic encephalopathy Comment: lactulose started with improved mentation Resolved. cont Lactulose BID (3) Polysubstance abuse Comment: opioids, benzo, MJ on urine drug screen (4) Non compliance with medical treatment Comment: counseled compliance (5) DVT prophylaxis Comment: heparin sc. Status and Disposition: Medically stable for discharge to STR
[2016-05-28] MEDS: Acetaminophen TAB* 325 MG PO PRN (20:53)
[2016-05-28] MEDS: CMCS Melatonin (NF) 3 MG TAB PO PRN (20:53)
[2016-05-29] MEDS: Heparin VIAL(*) 5000 UNITS/ML VIAL (FIVE THOUSAND) SUBCUT SCH ×3 (05:21→22:38)
[2016-05-29] MEDS: Omeprazole CAP* 20 MG PO SCH (05:21)
[2016-05-29] MEDS: Thiamine TAB* 100 MG TAB PO SCH (09:42)
[2016-05-29] MEDS: Docusate CAP* 100 MG PO SCH ×2 (09:42→21:00)
[2016-05-29] MEDS: Folic Acid TAB* 1 MG PO SCH (09:42)
[2016-05-29] MEDS: Multivitamins/Minerals TAB PO SCH (09:42)
[2016-05-29] MEDS: levETIRAcetam TAB* 500 MG PO SCH ×3 (09:43→21:01)
[2016-05-29] MEDS: Gabapentin CAP(*) 300 MG PO SCH ×3 (09:43→21:01)
[2016-05-29] MEDS: LORazepam TAB(*) 1 MG PO PRN ×2 (09:44→19:43)
[2016-05-29] MEDS: LACTULOSE* 30 ML UDC PO SCH ×2 (09:45→21:01)
[2016-05-29] MEDS: Acetaminophen TAB* 325 MG PO PRN ×2 (09:45→15:32)
[2016-05-29] MEDS: Nicotine Inhaler* 10 MG AMP INH PRN ×2 (14:14→22:38)
--- NOTE | 2016-05-29 15:05 | PN ---
Subjective Date of Service: 05/29/16 Interval History: no new events. Feels well, R sided weakness is improving slowly Objective Active Medications: Acetaminophen (Tylenol Tab*) 650 mg PO Q6H PRN PRN Reason: FEVER/PAIN Last Admin: 05/29/16 09:45 Dose: 650 mg Albuterol (Ventolin 2.5 Mg/3 Ml Neb.Maria Luisa*) 2.5 mg INH Q2H PRN PRN Reason: SOB/WHEEZING Docusate Sodium (Colace Cap*) 200 mg PO BID [facility] Last Admin: 05/29/16 09:42 Dose: 200 mg Folic Acid (Folvite Tab*) 1 mg PO DAILY [facility] Last Admin: 05/29/16 09:42 Dose: 1 mg Gabapentin (Neurontin Cap(*)) 300 mg PO TID [facility] Last Admin: 05/29/16 14:11 Dose: 300 mg Heparin Sodium (Porcine) (Heparin Vial(*)) 5,000 units SUBCUT Q8HR [facility] Last Admin: 05/29/16 14:14 Dose: 5,000 units Lactulose (Lactulose*) 30 ml PO BID [facility] Last Admin: 05/29/16 09:45 Dose: 30 ml Levetiracetam (Keppra Tab*) 500 mg PO TID [facility] Last Admin: 05/29/16 14:13 Dose: 500 mg Lorazepam (Ativan Tab(*)) 1 mg PO Q12H PRN PRN Reason: ANXIETY Last Admin: 05/29/16 09:44 Dose: 1 mg Melatonin (Melatonin (Nf)) 3 mg PO BEDTIME PRN; Protocol PRN Reason: Sleep Last Admin: 05/28/16 20:53 Dose: 3 mg Multivitamins/Minerals (Theragran/Minerals Tab*) 1 tab PO DAILY [facility] Last Admin: 05/29/16 09:42 Dose: 1 tab Nicotine (Nicotine Inhaler*) 10 mg INH Q2H PRN PRN Reason: CRAVING Last Admin: 05/29/16 14:14 Dose: 10 mg Omeprazole (Prilosec Cap*) 20 mg PO DAILY@0600 [facility] Last Admin: 05/29/16 05:21 Dose: 20 mg Ondansetron HCl (Zofran Inj*) 4 mg IV Q6H PRN PRN Reason: NAUSEA Last Admin: 05/26/16 08:05 Dose: 4 mg Thiamine HCl (Vitamin B-1 Tab*) 100 mg PO DAILY [facility] Last Admin: 05/29/16 09:42 Dose: 100 mg Vital Signs 05/28/16 05/28/16 05/28/16 15:43 15:53 19:27 Temperature 98.0 F 99.6 F Pulse Rate 102 73 Respiratory 18 18 17 Rate Blood Pressure 107/72 123/37 (mmHg) O2 Sat by Pulse 97 97 Oximetry 05/28/16 05/28/16 05/28/16 20:00 20:43 20:53 Temperature Pulse Rate Respiratory 18 18 18 Rate Blood Pressure (mmHg) O2 Sat by Pulse Oximetry 05/28/16 05/28/16 05/29/16 22:43 22:53 07:17 Temperature 99.2 F Pulse Rate 97 Respiratory 18 18 17 Rate Blood Pressure 135/97 (mmHg) O2 Sat by Pulse 97 Oximetry 05/29/16 05/29/16 05/29/16 08:00 08:10 09:43 Temperature Pulse Rate 88 Respiratory 17 17 18 Rate Blood Pressure (mmHg) O2 Sat by Pulse 98 Oximetry 05/29/16 05/29/16 05/29/16 09:44 11:43 14:11 Temperature Pulse Rate Respiratory 18 17 16 Rate Blood Pressure (mmHg) O2 Sat by Pulse Oximetry Oxygen Devices in Use Now: None Appearance: 61 yo F in nAD, aAOx3 Eyes: No Scleral Icterus, PERRLA Ears/Nose/Mouth/Throat: NL Teeth, Lips, Gums, Mucous Membranes Moist Neck: NL Appearance and Movements; NL JVP, Trachea Midline Respiratory: Symmetrical Chest Expansion and Respiratory Effort, Clear to Auscultation Cardiovascular: NL Sounds; No Murmurs; No JVD, RRR Abdominal: NL Sounds; No Tenderness; No Distention Lymphatic: No Cervical Adenopathy Extremities: No Edema, No Clubbing, Cyanosis Skin: No Rash or Ulcers, No Nodules or Sclerosis Neurological: Alert and Oriented x 3, - - motor in R UE and RLL at 4+/5 Result Diagrams: 05/24/16 21:35 05/26/16 05:18 Microbiology and Other Data: Microbiology 05/25/16 10:12 Urine Culture - Final Urine Assess/Plan/Problems-Billing Assessment: 61 yo F h/o CVA c/b seizure disorder, active etoh abuse and med non adherence p/ w partial seizures c/b right arm and leg weakness - Patient Problems (1) Seizure disorder Comment: according to EEG pt had epileptiform discharges when c/o r arm muscle spasms. Cont increased Keppra to TID. Cont Neurontin. Keep Ativan at a minimal dose due to h/o benzodiazepine OD in the past. PT eval appreciated . 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 cont Lactulose BID (3) Polysubstance abuse Comment: opioids, benzo, MJ on urine drug screen (4) Non compliance with medical treatment Comment: counseled compliance (5) DVT prophylaxis Comment: heparin sc. Status and Disposition: Medically stable for discharge to STR
[2016-05-29] MEDS: CMCS Melatonin (NF) 3 MG TAB PO PRN (22:37)
[2016-05-30] MEDS: Heparin VIAL(*) 5000 UNITS/ML VIAL (FIVE THOUSAND) SUBCUT SCH ×3 (05:41→21:41)
[2016-05-30] MEDS: Omeprazole CAP* 20 MG PO SCH (05:41)
[2016-05-30] MEDS: levETIRAcetam TAB* 500 MG PO SCH ×3 (08:22→20:19)
[2016-05-30] MEDS: Folic Acid TAB* 1 MG PO SCH (08:22)
[2016-05-30] MEDS: Docusate CAP* 100 MG PO SCH ×2 (08:22→20:19)
[2016-05-30] MEDS: LORazepam TAB(*) 1 MG PO PRN ×2 (08:22→21:41)
[2016-05-30] MEDS: Multivitamins/Minerals TAB PO SCH (08:22)
[2016-05-30] MEDS: Acetaminophen TAB* 325 MG PO PRN ×2 (08:23→16:21)
[2016-05-30] MEDS: Gabapentin CAP(*) 300 MG PO SCH (08:25)
[2016-05-30] MEDS: LACTULOSE* 30 ML UDC PO SCH ×2 (08:28→20:18)
[2016-05-30] MEDS ORDERED: oxyCODONE/Acetamin 5/325 MG* TAB PO ONE (08:31)
[2016-05-30] MEDS: Magnesium Oxide TAB* 400 MG PO SCH (10:41)
[2016-05-30] MEDS: Thiamine TAB* 100 MG TAB PO SCH (10:46)
--- NOTE | 2016-05-30 11:28 | PN ---
Subjective Date of Service: 05/30/16 Interval History: RN called this AM that pt said she is "freaking out", because she feels that she is getting "another seizure". When I entered the room pt appeared calm and comfortable, arranging her hair with both hands when talking to a person from the dietary service about the menu. When pt noted me in the room, she immediately appeared in discomfort, held out her R hand with her left and said that she had been having an "aura" all morning and in the past when it would happen she would have a generalized seizure afterwards. By "aura" she meant pain in R arm. Pt c/o feeing anxious. Strength in her R arm is actually markedly improved, but neuro exam is inconsistent. Initially no drift on R, but then pt noted that and the arm started drifting. Pt agrees to psychiatry consult Objective Active Medications: Acetaminophen (Tylenol Tab*) 650 mg PO Q6H PRN PRN Reason: FEVER/PAIN Last Admin: 05/30/16 08:23 Dose: 650 mg Albuterol (Ventolin 2.5 Mg/3 Ml Neb.Maria Luisa*) 2.5 mg INH Q2H PRN PRN Reason: SOB/WHEEZING Docusate Sodium (Colace Cap*) 200 mg PO BID [facility] Last Admin: 05/30/16 08:22 Dose: 200 mg Folic Acid (Folvite Tab*) 1 mg PO DAILY [facility] Last Admin: 05/30/16 08:22 Dose: 1 mg Gabapentin (Neurontin Cap(*)) 300 mg PO TID [facility] Last Admin: 05/30/16 08:25 Dose: 300 mg Heparin Sodium (Porcine) (Heparin Vial(*)) 5,000 units SUBCUT Q8HR [facility] Last Admin: 05/30/16 05:41 Dose: 5,000 units Lactulose (Lactulose*) 30 ml PO BID [facility] Last Admin: 05/30/16 08:28 Dose: 30 ml Levetiracetam (Keppra Tab*) 500 mg PO TID [facility] Last Admin: 05/30/16 08:22 Dose: 500 mg Lorazepam (Ativan Tab(*)) 1 mg PO Q12H PRN PRN Reason: ANXIETY Last Admin: 05/30/16 08:22 Dose: 1 mg Magnesium Oxide (Magox 400 Tab*) 800 mg PO DAILY [facility] Last Admin: 05/30/16 10:41 Dose: 800 mg Melatonin (Melatonin (Nf)) 3 mg PO BEDTIME PRN; Protocol PRN Reason: Sleep Last Admin: 05/29/16 22:37 Dose: 3 mg Multivitamins/Minerals (Theragran/Minerals Tab*) 1 tab PO DAILY [facility] Last Admin: 05/30/16 08:22 Dose: 1 tab Nicotine (Nicotine Inhaler*) 10 mg INH Q2H PRN PRN Reason: CRAVING Last Admin: 05/29/16 22:38 Dose: 10 mg Omeprazole (Prilosec Cap*) 20 mg PO DAILY@0600 [facility] Last Admin: 05/30/16 05:41 Dose: 20 mg Ondansetron HCl (Zofran Inj*) 4 mg IV Q6H PRN PRN Reason: NAUSEA Last Admin: 05/26/16 08:05 Dose: 4 mg Thiamine HCl (Vitamin B-1 Tab*) 100 mg PO DAILY [facility] Last Admin: 05/30/16 10:46 Dose: 100 mg Vital Signs 05/29/16 05/29/16 05/29/16 11:43 14:11 16:00 Temperature 98.5 F Pulse Rate 96 Respiratory 17 16 16 Rate Blood Pressure 91/61 (mmHg) O2 Sat by Pulse 98 Oximetry 05/29/16 05/29/16 05/29/16 16:11 19:43 20:00 Temperature Pulse Rate Respiratory 16 20 20 Rate Blood Pressure (mmHg) O2 Sat by Pulse Oximetry 05/29/16 05/29/16 05/29/16 21:01 21:43 23:01 Temperature Pulse Rate Respiratory 18 16 17 Rate Blood Pressure (mmHg) O2 Sat by Pulse Oximetry 05/30/16 05/30/16 05/30/16 02:06 07:13 08:22 Temperature 99.1 F 98.0 F Pulse Rate 84 86 Respiratory 16 16 18 Rate Blood Pressure 110/74 115/73 (mmHg) O2 Sat by Pulse 99 100 Oximetry 05/30/16 05/30/16 05/30/16 08:25 08:41 10:25 Temperature Pulse Rate Respiratory 18 24 18 Rate Blood Pressure (mmHg) O2 Sat by Pulse Oximetry Oxygen Devices in Use Now: None Appearance: 61 yo f in nAd, aAOx3 Eyes: No Scleral Icterus, PERRLA Ears/Nose/Mouth/Throat: NL Teeth, Lips, Gums, Mucous Membranes Moist Neck: NL Appearance and Movements; NL JVP, Trachea Midline Respiratory: Symmetrical Chest Expansion and Respiratory Effort, Clear to Auscultation Cardiovascular: NL Sounds; No Murmurs; No JVD, RRR Abdominal: NL Sounds; No Tenderness; No Distention, No Hepatosplenomegaly Lymphatic: No Cervical Adenopathy Extremities: No Edema, No Clubbing, Cyanosis Skin: No Rash or Ulcers, No Nodules or Sclerosis Neurological: Alert and Oriented x 3, - - R arm and R leg at 4+/5, neuro exam inconsistent Result Diagrams: 05/24/16 21:35 05/26/16 05:18 Microbiology and Other Data: Microbiology 05/25/16 10:12 Urine Culture - Final Urine Assess/Plan/Problems-Billing Assessment: 61 yo F h/o CVA c/b seizure disorder, active etoh abuse and med non adherence p/ w partial seizures c/b right arm and leg weakness - Patient Problems (1) Seizure disorder Comment: according to EEG pt had epileptiform discharges when c/o R arm muscle spasms on 05/27/16. today pt has more complaints, but no evidence of worsening on exam. Possible malingering. Pt continues to request narcotics and benzodiazepines. will ask neuro to see pt again and obatin another EEG. Cont increased Keppra to TID. Cont Neurontin. Keep Ativan at a minimal dose due to h/o benzodiazepine OD in the past. 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 cont Lactulose BID (3) Polysubstance abuse Comment: opioids, benzo, MJ on urine drug screen (4) Non compliance with medical treatment Comment: counseled compliance (5) DVT prophylaxis Comment: heparin sc. Status and Disposition: Medically stable for discharge to [facility], but now with worsening anxiety . will await psychiatry and neuro eval prior to d/c
[2016-05-30] MEDS ORDERED: levETIRAcetam TAB* 500 MG PO SCH (13:04)
[2016-05-30] MEDS ORDERED: LaCOSAMide VIAL * 100 MG in NS 0.9% 50 ML* 50 ML IVPB ONE (14:00)
[2016-05-30] MEDS: Gabapentin CAP(*) 400 MG PO SCH ×2 (15:24→20:20)
[2016-05-30] MEDS: Nicotine Inhaler* 10 MG AMP INH PRN (16:21)
--- NOTE | 2016-05-30 18:30 | PN ---
Progress Note - Progress Note SOAP: Neurology progress note Date of service: 05/30/16 Subjective: The patient today continued to have episodes of increased warmth sensation in the right arm and some contractions which made her concerned and irritated. She had an EEG earlier today which showed frequent sharp waves in the left fronto- temporal region with some extension to the parietal, at times coming in runs, but no clear seizure was seen. Objective: Vital Signs Temp Pulse Resp BP Pulse Ox 98.5 F 87 18 117/84 98 05/30/16 15:54 05/30/16 15:54 05/30/16 16:57 05/30/16 15:54 05/30/16 15:54 Current Medications Acetaminophen (Tylenol Tab*) 650 mg PO Q6H PRN PRN Reason: FEVER/PAIN Last Admin: 05/30/16 16:21 Dose: 650 mg Albuterol (Ventolin 2.5 Mg/3 Ml Neb.Maria Luisa*) 2.5 mg INH Q2H PRN PRN Reason: SOB/WHEEZING Docusate Sodium (Colace Cap*) [address] [facility] Last Admin: 05/30/16 08:22 Dose: 200 mg Folic Acid (Folvite Tab*) [address] [facility] Last Admin: 05/30/16 08:22 Dose: 1 mg Gabapentin (Neurontin Cap(*)) [address] [facility] Last Admin: 05/30/16 15:24 Dose: 400 mg Heparin Sodium (Porcine) (Heparin Vial(*)) 5,[address] [facility] Last Admin: 05/30/16 15:26 Dose: 5,000 units Hydroxyzine HCl (Atarax Tab*) 50 mg PO Q6H PRN PRN Reason: ANXIETY Lactulose (Lactulose*) [address] [facility] Last Admin: 05/30/16 08:28 Dose: 30 ml Levetiracetam (Keppra Tab*) 750 mg PO 0900,1400,2100 [facility] Last Admin: 05/30/16 15:25 Dose: 750 mg Lorazepam (Ativan Tab(*)) 1 mg PO Q12H PRN PRN Reason: ANXIETY Last Admin: 05/30/16 08:22 Dose: 1 mg Magnesium Oxide (Magox 400 Tab*) [address] [facility] Last Admin: 05/30/16 10:41 Dose: 800 mg Melatonin (Melatonin (Nf)) 3 mg PO BEDTIME PRN; Protocol PRN Reason: Sleep Last Admin: 05/29/16 22:37 Dose: 3 mg Multivitamins/Minerals (Theragran/Minerals Tab*) [address] [facility] Last Admin: 05/30/16 08:22 Dose: 1 tab Nicotine (Nicotine Inhaler*) 10 mg INH Q2H PRN PRN Reason: CRAVING Last Admin: 05/30/16 16:21 Dose: 10 mg Omeprazole (Prilosec Cap*) 20 mg PO DAILY@0600 [facility] Last Admin: 05/30/16 05:41 Dose: 20 mg Ondansetron HCl (Zofran Inj*) 4 mg IV Q6H PRN PRN Reason: NAUSEA Last Admin: 05/26/16 08:05 Dose: 4 mg Thiamine HCl (Vitamin B-1 Tab*) [address] [facility] Last Admin: 05/30/16 10:46 Dose: 100 mg On exam, the patient is alert and awake and oriented. Pupils symmetric and reactive. Face symmetric. Tongue midline. Strength seems 5/5 throughout on the left and right side. Sensation to light touch and pinprick is decreased on the right arm and leg. Finger to nose intact on the left and very subtle action tremor on the right with no dysmetria. Heel to sarmiento slightly slower on the right side. Gait is unsteady and she sways upon standing. 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 Today, I had a conversation with the patient regarding her medication management. I told her that repeated benzo intake is not a proper treatment regimen for her seizures and need to focus on antiepileptic medication. From the first line medication she is on levetiracetam, which considering her history of alcohol and maybe benzo abuse, I am hesitant to further increase its dose because of high rate of mood changes/irritability in this patient population. I recommend adding a new AED and we potentially discussed oxcarbazepine as the first choice but she has history of hepatic encephalopathy, so alternatively Vimpat was discussed. Potential side effects were reviewed. Patient is in agreement. After initial discussion with Dr. Quinones, decided to load her with 100 mg and then continue on 50 mg bid of Vimpat and then monitor her until tomorrow. If stable can proceed with her plans of rehab with outpatient follow up with her neurologist.
[2016-05-30] MEDS ORDERED: Lacosamide TAB* 50 MG TAB PO SCH (21:00)
[2016-05-30] MEDS: CMCS Melatonin (NF) 3 MG TAB PO PRN (21:40)
--- NOTE | 2016-05-31 00:24 | EEG ---
ELECTROENCEPHALOGRAPHY: DATE OF STUDY: 05/30/16 - ROOM #416 REQUESTING PROVIDER: Anjelica Quinones MD CLINICAL PROBLEM: The patient is a 61-year-old female with history of localization related epilepsy due to an encephalomalacia in the left hemisphere. . STUDY: This digital EEG was recorded using 21 scalp and ear, and 2 EKG electrodes. It was reviewed in referential and bipolar montages following reformatting in the 10-20 international electrode placement system. In the most awake state, the background consists of 20-30 microvolts, 10-10.5 Hz posterior dominant rhythm with adequate response to eye opening. Faster frequencies including 10-15 microvolts, 16-20 Hz activity is seen in the frontal leads. There are frequent sharp waves in the left fronto-temporal region with maximum negativity in T7 with some extension to the left parietal area, with discharges at times occuring in runs of 3 to 4 seconds. There were a few times an observed mild twitching in the arms and legs that were not associated with change in the background EEG recording. CLINICAL IMPRESSION: This digital EEG in the awake state is abnormal due to frequent sharp waves in left frontotemporal region with some extension to the left parietal area. The above finding is suggestive of an epileptogenic focus in the same region. No clear seizures were seen. [id number]/[facility] #: [id number] [facility]ERSanjana
[2016-05-31] MEDS: hydrOXYzine HCL TAB* 50 MG PO PRN ×2 (03:34→12:59)
[2016-05-31] MEDS: Acetaminophen TAB* 325 MG PO PRN (03:34)
[2016-05-31] MEDS: Heparin VIAL(*) 5000 UNITS/ML VIAL (FIVE THOUSAND) SUBCUT SCH ×3 (05:54→22:19)
[2016-05-31] MEDS: Omeprazole CAP* 20 MG PO SCH (05:54)
[2016-05-31 06:12] LABS: Hematocrit 35 % (35-47); Hemoglobin 11.5 g/dl (12.0-16.0); Mean Corpuscular HGB Conc 33 g/dl (31-36); Mean Corpuscular Hemoglobin 31 pg (27-31); Mean Corpuscular Volume 94 fL (80-97); Mean Platelet Volume 8 um3 (7.4-10.4); Red Blood Count 3.75 10^6/ul (4.0-5.4); Red Cell Distribution Width 15 % (10.5-15); White Blood Count 4.2 10^3/ul (3.5-10.8)
[2016-05-31] MEDS: LACTULOSE* 30 ML UDC PO SCH ×2 (09:37→22:22)
[2016-05-31] MEDS: levETIRAcetam TAB* 500 MG PO SCH ×3 (09:37→22:21)
[2016-05-31] MEDS: Gabapentin CAP(*) 400 MG PO SCH ×3 (09:38→22:19)
[2016-05-31] MEDS: Multivitamins/Minerals TAB PO SCH (09:38)
[2016-05-31] MEDS: Thiamine TAB* 100 MG TAB PO SCH (09:38)
[2016-05-31] MEDS: Folic Acid TAB* 1 MG PO SCH (09:39)
[2016-05-31] MEDS: Magnesium Oxide TAB* 400 MG PO SCH (09:39)
[2016-05-31] MEDS: LORazepam TAB(*) 1 MG PO PRN (09:48)
[2016-05-31] MEDS: Docusate CAP* 100 MG PO SCH ×2 (10:57→22:22)
--- NOTE | 2016-05-31 11:54 | PN ---
Progress Note - Progress Note SOAP: Neurology progress note Date of service: 05/31/16 Subjective: Patient feels better today. She feels stronger and more steady and was able to walk with walker. No apparent seizure reported. She received a loading dose of Vimpat at 100 mg yesterday and she feels that her strength has been better after that. She is continuing on the maintenance dose. Objective: Vital Signs Temp Pulse Resp BP Pulse Ox 98.2 F 87 16 106/69 94 05/30/16 23:19 05/30/16 23:19 05/31/16 09:48 05/30/16 23:19 05/30/16 23:19 Current Medications Acetaminophen (Tylenol Tab*) 650 mg PO Q6H PRN PRN Reason: FEVER/PAIN Last Admin: 05/31/16 03:34 Dose: 650 mg Albuterol (Ventolin 2.5 Mg/3 Ml Neb.Maria Luisa*) 2.5 mg INH Q2H PRN PRN Reason: SOB/WHEEZING Docusate Sodium (Colace Cap*) 200 mg PO BID [facility] Last Admin: 05/31/16 10:57 Dose: Not Given Folic Acid (Folvite Tab*) 1 mg PO DAILY [facility] Last Admin: 05/31/16 09:39 Dose: 1 mg Gabapentin (Neurontin Cap(*)) 400 mg PO TID [facility] Last Admin: 05/31/16 09:38 Dose: 400 mg Heparin Sodium (Porcine) (Heparin Vial(*)) 5,000 units SUBCUT Q8HR [facility] Last Admin: 05/31/16 05:54 Dose: 5,000 units Hydroxyzine HCl (Atarax Tab*) 50 mg PO Q6H PRN PRN Reason: ANXIETY Last Admin: 05/31/16 03:34 Dose: 50 mg Lacosamide (Vimpat Tab*) 50 mg PO BID [facility] Lactulose (Lactulose*) 30 ml PO BID [facility] Last Admin: 05/31/16 09:37 Dose: 30 ml Levetiracetam (Keppra Tab*) 750 mg PO 0900,1400,2100 [facility] Last Admin: 05/31/16 09:37 Dose: 750 mg Lorazepam (Ativan Tab(*)) 1 mg PO Q12H PRN PRN Reason: ANXIETY Last Admin: 05/31/16 09:48 Dose: 1 mg Magnesium Oxide (Magox 400 Tab*) 800 mg PO DAILY [facility] Last Admin: 05/31/16 09:39 Dose: 800 mg Melatonin (Melatonin (Nf)) 3 mg PO BEDTIME PRN; Protocol PRN Reason: Sleep Last Admin: 05/30/16 21:40 Dose: 3 mg Multivitamins/Minerals (Theragran/Minerals Tab*) 1 tab PO DAILY [facility] Last Admin: 05/31/16 09:38 Dose: 1 tab Nicotine (Nicotine Inhaler*) 10 mg INH Q2H PRN PRN Reason: CRAVING Last Admin: 05/30/16 16:21 Dose: 10 mg Omeprazole (Prilosec Cap*) 20 mg PO DAILY@0600 [facility] Last Admin: 05/31/16 05:54 Dose: 20 mg Ondansetron HCl (Zofran Inj*) 4 mg IV Q6H PRN PRN Reason: NAUSEA Last Admin: 05/26/16 08:05 Dose: 4 mg Thiamine HCl (Vitamin B-1 Tab*) 100 mg PO DAILY [facility] Last Admin: 05/31/16 09:38 Dose: 100 mg On exam, awake, alert, oriented, speech fluent and non-dysarthric. Pupils symmetric and reactive. Face symmetric. V1-3 intact. Tongue midline. Strength is 5/5 on the left upper and lower extremities and also on the right side with only the right hip flexion slightly weaker compared to the left (5-). Sensation to light touch and pinprick is also better today on the right side, more comparable to the left. Assessment and plan: 61 year old female with a history of localization related epilepsy secondary to encephalomalacia in the left parieto-occipital region. The patient presented with sensory-motor seizures in the right side with a yoselin's paralysis phenomenon picture. She has been improving now, especially after Vimpat was added to her medication regimen. Her seizures seem under good control now with continued improvement in the strength on the right side, eventhough her EEG yesterday showed frequent interictal discharges in the left fronto-temporal region. Recommend to continue the current dose of Keppra and continue Vimpat at 50 mg bid for 5-7 days and if remains stable to increase the dose to 100 mg bid. She may benefit from rehab per PT recommendation.
[2016-05-31] MEDS: Lacosamide TAB* 50 MG TAB PO SCH ×2 (12:31→22:20)
--- NOTE | 2016-05-31 12:39 | PN ---
Subjective Date of Service: 05/31/16 Interval History: pt feels less anxious, still c/l R leg weakness and problems with walking. Pt stated that R hand muscle spasms basically resolved after IV dose of Vimpat yesterday Objective Active Medications: Acetaminophen (Tylenol Tab*) 650 mg PO Q6H PRN PRN Reason: FEVER/PAIN Last Admin: 05/31/16 03:34 Dose: 650 mg Albuterol (Ventolin 2.5 Mg/3 Ml Neb.Maria Luisa*) 2.5 mg INH Q2H PRN PRN Reason: SOB/WHEEZING Docusate Sodium (Colace Cap*) 200 mg PO BID [facility] Last Admin: 05/31/16 10:57 Dose: Not Given Folic Acid (Folvite Tab*) 1 mg PO DAILY [facility] Last Admin: 05/31/16 09:39 Dose: 1 mg Gabapentin (Neurontin Cap(*)) 400 mg PO TID [facility] Last Admin: 05/31/16 12:30 Dose: 400 mg Heparin Sodium (Porcine) (Heparin Vial(*)) 5,000 units SUBCUT Q8HR [facility] Last Admin: 05/31/16 12:29 Dose: 5,000 units Hydroxyzine HCl (Atarax Tab*) 50 mg PO Q6H PRN PRN Reason: ANXIETY Last Admin: 05/31/16 03:34 Dose: 50 mg Lacosamide (Vimpat Tab*) 50 mg PO BID [facility] Last Admin: 05/31/16 12:31 Dose: 50 mg Lactulose (Lactulose*) 30 ml PO BID [facility] Last Admin: 05/31/16 09:37 Dose: 30 ml Levetiracetam (Keppra Tab*) 750 mg PO 0900,1400,2100 [facility] Last Admin: 05/31/16 12:30 Dose: 750 mg Lorazepam (Ativan Tab(*)) 1 mg PO Q12H PRN PRN Reason: ANXIETY Last Admin: 05/31/16 09:48 Dose: 1 mg Magnesium Oxide (Magox 400 Tab*) 800 mg PO DAILY [facility] Last Admin: 05/31/16 09:39 Dose: 800 mg Melatonin (Melatonin (Nf)) 3 mg PO BEDTIME PRN; Protocol PRN Reason: Sleep Last Admin: 05/30/16 21:40 Dose: 3 mg Multivitamins/Minerals (Theragran/Minerals Tab*) 1 tab PO DAILY [facility] Last Admin: 05/31/16 09:38 Dose: 1 tab Nicotine (Nicotine Inhaler*) 10 mg INH Q2H PRN PRN Reason: CRAVING Last Admin: 05/30/16 16:21 Dose: 10 mg Omeprazole (Prilosec Cap*) 20 mg PO DAILY@0600 [facility] Last Admin: 05/31/16 05:54 Dose: 20 mg Ondansetron HCl (Zofran Inj*) 4 mg IV Q6H PRN PRN Reason: NAUSEA Last Admin: 05/26/16 08:05 Dose: 4 mg Thiamine HCl (Vitamin B-1 Tab*) 100 mg PO DAILY [facility] Last Admin: 05/31/16 09:38 Dose: 100 mg Vital Signs 05/30/16 05/30/16 05/30/16 15:20 15:24 15:26 Temperature 98.8 F Pulse Rate 86 Respiratory 16 16 16 Rate Blood Pressure 127/86 (mmHg) O2 Sat by Pulse Oximetry 05/30/16 05/30/16 05/30/16 15:54 16:57 20:00 Temperature 98.5 F Pulse Rate 87 Respiratory 18 16 Rate Blood Pressure 117/84 (mmHg) O2 Sat by Pulse 98 Oximetry 05/30/16 05/30/16 05/30/16 20:20 20:59 21:41 Temperature Pulse Rate 87 Respiratory 17 16 17 Rate Blood Pressure (mmHg) O2 Sat by Pulse 97 Oximetry 05/30/16 05/30/16 05/30/16 22:20 23:19 23:41 Temperature 98.2 F Pulse Rate 87 Respiratory 16 16 15 Rate Blood Pressure 106/69 (mmHg) O2 Sat by Pulse 94 Oximetry 05/31/16 05/31/16 05/31/16 09:38 09:48 12:30 Temperature Pulse Rate Respiratory 16 16 24 Rate Blood Pressure (mmHg) O2 Sat by Pulse Oximetry Oxygen Devices in Use Now: None Appearance: 61 yo F in NAD, AAOx3 Eyes: No Scleral Icterus, PERRLA Ears/Nose/Mouth/Throat: NL Teeth, Lips, Gums, Mucous Membranes Moist Neck: NL Appearance and Movements; NL JVP, Trachea Midline Respiratory: Symmetrical Chest Expansion and Respiratory Effort, Clear to Auscultation Cardiovascular: NL Sounds; No Murmurs; No JVD, RRR Abdominal: NL Sounds; No Tenderness; No Distention, No Hepatosplenomegaly Lymphatic: No Cervical Adenopathy Extremities: No Edema, No Clubbing, Cyanosis Skin: No Rash or Ulcers, No Nodules or Sclerosis Neurological: Alert and Oriented x 3, - - r UE, R LE at 4+/5. slightly ataxic walk with a walker Result Diagrams: 05/31/16 05:27 05/26/16 05:18 Microbiology and Other Data: Microbiology 05/25/16 10:12 Urine Culture - Final Urine Assess/Plan/Problems-Billing Assessment: 61 yo F h/o CVA c/b seizure disorder, active etoh abuse and med non adherence p/ w partial seizures c/b right arm and leg weakness - Patient Problems (1) Seizure disorder Comment: according to EEG pt had epileptiform discharges when c/o R arm muscle spasms on 05/27/16, also noted discharges on EEG on 05/30/16. Cont increased Keppra to 750 mg BID. Appreciate Neuro f/u- vimpat started on with improvement of symptoms Cont Neurontin (increased from 300 to 400 mg TID after d/w psychiatry) Keep Ativan at a minimal dose due to h/o benzodiazepine OD in the past. CT shows known left encephalomalacia (after TBI in remote past) (2) Hepatic encephalopathy Comment: Resolved. cont Lactulose BID (3) Polysubstance abuse Comment: opioids, benzo, MJ on urine drug screen (4) Non compliance with medical treatment Comment: counseled compliance (5) Anxiety Comment: appreciate Psychiatry's imput. will cont Atarax improving (6) DVT prophylaxis Comment: heparin sc. Status and Disposition: Medically stable for discharge to [facility]
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
[2016-05-31] MEDS: Citalopram TAB* 20 MG PO SCH (15:31)
[2016-05-31] MEDS: Artificial Tears* 15 ML BTL BOTH EYES PRN (17:02)
[2016-05-31] MEDS ORDERED: Mouth Piece, Nicotine* 1 EACH CARTRIDGE ONE (22:27)
[2016-05-31] MEDS: Nicotine Inhaler* 10 MG AMP INH PRN (22:28)
[2016-06-01] MEDS: Heparin VIAL(*) 5000 UNITS/ML VIAL (FIVE THOUSAND) SUBCUT SCH ×3 (05:25→21:09)
[2016-06-01] MEDS: Omeprazole CAP* 20 MG PO SCH (05:26)
[2016-06-01] MEDS: Nicotine Inhaler* 10 MG AMP INH PRN ×2 (08:37→14:59)
[2016-06-01] MEDS: LACTULOSE* 30 ML UDC PO SCH ×2 (08:37→12:00)
[2016-06-01] MEDS: Thiamine TAB* 100 MG TAB PO SCH (08:38)
[2016-06-01] MEDS: Docusate CAP* 100 MG PO SCH ×3 (08:38→20:48)
[2016-06-01] MEDS: levETIRAcetam TAB* 500 MG PO SCH ×3 (08:38→20:49)
[2016-06-01] MEDS: Multivitamins/Minerals TAB PO SCH (08:38)
[2016-06-01] MEDS: Citalopram TAB* 20 MG PO SCH (08:39)
[2016-06-01] MEDS: Folic Acid TAB* 1 MG PO SCH (08:39)
[2016-06-01] MEDS: Gabapentin CAP(*) 400 MG PO SCH ×3 (08:39→20:48)
[2016-06-01] MEDS: Magnesium Oxide TAB* 400 MG PO SCH (08:39)
[2016-06-01] MEDS: Lacosamide TAB* 50 MG TAB PO SCH ×2 (08:40→20:48)
[2016-06-01] MEDS: LORazepam TAB(*) 1 MG PO PRN ×2 (08:52→20:56)
--- NOTE | 2016-06-01 11:48 | PN ---
Subjective Date of Service: 06/01/16 Interval History: feels much better. Liked her psychiatry consult yesterday Objective Active Medications: Acetaminophen (Tylenol Tab*) 650 mg PO Q6H PRN PRN Reason: FEVER/PAIN Last Admin: 05/31/16 03:34 Dose: 650 mg Albuterol (Ventolin 2.5 Mg/3 Ml Neb.Maria Luisa*) 2.5 mg INH Q2H PRN PRN Reason: SOB/WHEEZING Citalopram Hydrobromide (Celexa Tab*) 20 mg PO DAILY [facility] Last Admin: 06/01/16 08:39 Dose: 20 mg Docusate Sodium (Colace Cap*) 200 mg PO BID [facility] Last Admin: 06/01/16 08:54 Dose: Not Given Folic Acid (Folvite Tab*) 1 mg PO DAILY [facility] Last Admin: 06/01/16 08:39 Dose: 1 mg Gabapentin (Neurontin Cap(*)) 400 mg PO TID [facility] Last Admin: 06/01/16 08:39 Dose: 400 mg Heparin Sodium (Porcine) (Heparin Vial(*)) 5,000 units SUBCUT Q8HR [facility] Last Admin: 06/01/16 05:25 Dose: 5,000 units Hydroxyzine HCl (Atarax Tab*) 50 mg PO Q6H PRN PRN Reason: ANXIETY Last Admin: 05/31/16 12:59 Dose: 50 mg Lacosamide (Vimpat Tab*) 50 mg PO BID [facility] Last Admin: 06/01/16 08:40 Dose: 50 mg Lactulose (Lactulose*) 30 ml PO DAILY [facility] Levetiracetam (Keppra Tab*) 750 mg PO 0900,1400,2100 [facility] Last Admin: 06/01/16 08:38 Dose: 750 mg Lorazepam (Ativan Tab(*)) 1 mg PO Q12H PRN PRN Reason: ANXIETY Last Admin: 06/01/16 08:52 Dose: 1 mg Magnesium Oxide (Magox 400 Tab*) 800 mg PO DAILY [facility] Last Admin: 06/01/16 08:39 Dose: 800 mg Melatonin (Melatonin (Nf)) 3 mg PO BEDTIME PRN; Protocol PRN Reason: Sleep Last Admin: 05/30/16 21:40 Dose: 3 mg Multivitamins/Minerals (Theragran/Minerals Tab*) 1 tab PO DAILY [facility] Last Admin: 06/01/16 08:38 Dose: 1 tab Nicotine (Nicotine Inhaler*) 10 mg INH Q2H PRN PRN Reason: CRAVING Last Admin: 06/01/16 08:37 Dose: 10 mg Omeprazole (Prilosec Cap*) 20 mg PO DAILY@0600 [facility] Last Admin: 06/01/16 05:26 Dose: 20 mg Ondansetron HCl (Zofran Inj*) 4 mg IV Q6H PRN PRN Reason: NAUSEA Last Admin: 05/26/16 08:05 Dose: 4 mg Polyvinyl Alcohol (Polyvinyl Alcohol 1.4% Opth*) 1 drop BOTH EYES Q2H PRN PRN Reason: DRY EYE Last Admin: 05/31/16 17:02 Dose: 1 drop Thiamine HCl (Vitamin B-1 Tab*) 100 mg PO DAILY [facility] Last Admin: 06/01/16 08:38 Dose: 100 mg Vital Signs 05/31/16 05/31/16 05/31/16 12:30 15:48 16:01 Temperature 97.6 F Pulse Rate 82 Respiratory 24 16 18 Rate Blood Pressure 111/78 (mmHg) O2 Sat by Pulse 96 Oximetry 05/31/16 05/31/16 05/31/16 22:10 22:19 23:11 Temperature 98.1 F Pulse Rate 88 Respiratory 18 20 16 Rate Blood Pressure 128/87 (mmHg) O2 Sat by Pulse 99 Oximetry 06/01/16 06/01/16 06/01/16 00:19 07:12 08:39 Temperature 98.9 F Pulse Rate 76 Respiratory 16 15 16 Rate Blood Pressure 93/60 (mmHg) O2 Sat by Pulse 97 Oximetry 06/01/16 06/01/16 06/01/16 08:44 08:52 10:39 Temperature Pulse Rate 76 Respiratory 18 16 Rate Blood Pressure 120/88 (mmHg) O2 Sat by Pulse Oximetry 06/01/16 10:52 Temperature Pulse Rate Respiratory 16 Rate Blood Pressure (mmHg) O2 Sat by Pulse Oximetry Oxygen Devices in Use Now: None Appearance: 61 yo f in nAd, aAOx3 Eyes: No Scleral Icterus, PERRLA Ears/Nose/Mouth/Throat: NL Teeth, Lips, Gums, Mucous Membranes Moist Neck: NL Appearance and Movements; NL JVP, Trachea Midline Respiratory: Symmetrical Chest Expansion and Respiratory Effort, Clear to Auscultation Cardiovascular: NL Sounds; No Murmurs; No JVD, RRR Abdominal: NL Sounds; No Tenderness; No Distention Lymphatic: No Cervical Adenopathy Extremities: No Edema, No Clubbing, Cyanosis Skin: No Rash or Ulcers, No Nodules or Sclerosis Neurological: Alert and Oriented x 3, - - R UE minimally decreased strenght, no pronator drift. R leg at 4+/5 Result Diagrams: 05/31/16 05:27 05/26/16 05:18 Microbiology and Other Data: Microbiology 05/25/16 10:12 Urine Culture - Final Urine Assess/Plan/Problems-Billing Assessment: 61 yo F h/o CVA c/b seizure disorder, active etoh abuse and med non adherence p/ w partial seizures c/b right arm and leg weakness - Patient Problems (1) Seizure disorder Comment: according to EEG pt had epileptiform discharges when c/o R arm muscle spasms on 05/27/16, also noted epileptiform discharges on EEG on 05/30/16. Cont increased Keppra to 750 mg BID. Appreciate Neuro f/u- vimpat started on with improvement of symptoms Cont Neurontin (increased from 300 to 400 mg TID after d/w psychiatry) Keep Ativan at a minimal dose due to h/o benzodiazepine OD in the past. CT shows known left encephalomalacia (after TBI in remote past) (2) Hepatic encephalopathy Comment: Resolved. cont Lactulose (dose lowered from BID to QD due to diarrhea on 06/01/16) (3) Polysubstance abuse Comment: opioids, benzo, MJ on urine drug screen (4) Non compliance with medical treatment Comment: counseled compliance (5) Anxiety Comment: appreciate Psychiatry's imput. will cont Atarax prn Celexa started on 06/01/16 improving (6) DVT prophylaxis Comment: heparin sc. Status and Disposition: Medically stable for discharge to [facility]
[2016-06-01] MEDS: Acetaminophen TAB* 325 MG PO PRN (18:20)
[2016-06-01] MEDS: CMCS Melatonin (NF) 3 MG TAB PO PRN (21:08)
[2016-06-02] MEDS: Heparin VIAL(*) 5000 UNITS/ML VIAL (FIVE THOUSAND) SUBCUT SCH ×3 (06:20→20:20)
[2016-06-02] MEDS: Omeprazole CAP* 20 MG PO SCH (06:20)
[2016-06-02] MEDS: LACTULOSE* 30 ML UDC PO SCH (07:52)
[2016-06-02] MEDS: Magnesium Oxide TAB* 400 MG PO SCH (07:53)
[2016-06-02] MEDS: Multivitamins/Minerals TAB PO SCH (07:53)
[2016-06-02] MEDS: levETIRAcetam TAB* 500 MG PO SCH ×3 (07:53→20:18)
[2016-06-02] MEDS: Gabapentin CAP(*) 400 MG PO SCH ×3 (07:54→20:17)
[2016-06-02] MEDS: Thiamine TAB* 100 MG TAB PO SCH (07:55)
[2016-06-02] MEDS: Docusate CAP* 100 MG PO SCH ×2 (07:55→20:22)
[2016-06-02] MEDS: Citalopram TAB* 20 MG PO SCH (07:55)
[2016-06-02] MEDS: Lacosamide TAB* 50 MG TAB PO SCH ×2 (07:56→20:20)
[2016-06-02] MEDS: Folic Acid TAB* 1 MG PO SCH (07:56)
[2016-06-02] MEDS: Nicotine Inhaler* 10 MG AMP INH PRN ×2 (07:59→20:29)
[2016-06-02] MEDS: LORazepam TAB(*) 1 MG PO PRN ×2 (08:00→18:05)
[2016-06-02] MEDS: Artificial Tears* 15 ML BTL BOTH EYES PRN (10:44)
[2016-06-02] MEDS: Acetaminophen TAB* 325 MG PO PRN ×2 (12:06→20:18)
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
[2016-06-02] MEDS: hydrOXYzine HCL TAB* 50 MG PO PRN (15:03)
[2016-06-02] MEDS: Ibuprofen TAB* 600 MG PO PRN (15:37)
[2016-06-03] MEDS: Heparin VIAL(*) 5000 UNITS/ML VIAL (FIVE THOUSAND) SUBCUT SCH ×3 (06:10→20:48)
[2016-06-03] MEDS: Omeprazole CAP* 20 MG PO SCH (06:10)
[2016-06-03] MEDS: Lacosamide TAB* 50 MG TAB PO SCH (08:59)
[2016-06-03] MEDS: Gabapentin CAP(*) 400 MG PO SCH ×3 (08:59→20:46)
[2016-06-03] MEDS: Acetaminophen TAB* 325 MG PO PRN (09:01)
[2016-06-03] MEDS: levETIRAcetam TAB* 500 MG PO SCH ×3 (09:01→20:47)
[2016-06-03] MEDS: Multivitamins/Minerals TAB PO SCH (09:01)
[2016-06-03] MEDS: LORazepam TAB(*) 1 MG PO PRN ×2 (09:02→20:55)
[2016-06-03] MEDS: Folic Acid TAB* 1 MG PO SCH (09:03)
[2016-06-03] MEDS: Magnesium Oxide TAB* 400 MG PO SCH (09:03)
[2016-06-03] MEDS: Citalopram TAB* 20 MG PO SCH (09:03)
[2016-06-03] MEDS: Thiamine TAB* 100 MG TAB PO SCH (09:04)
[2016-06-03] MEDS: Docusate CAP* 100 MG PO SCH ×2 (09:04→20:44)
[2016-06-03] MEDS: LACTULOSE* 30 ML UDC PO SCH (09:04)
--- NOTE | 2016-06-03 11:14 | CONSULT ---
Identification - Patient Identification -: Patient is a 61 year old, F admitted on 05/26/16. History - Objective HPI: Lindy reports feeling "a little depressed" but denied emotional pain or any wishes or recent suicidal thoughts. We talked about her history and prior psychiatric treatment, and she does not see a current role for inpatient admission. She is ambivalent about substance rehab, noting her stakeholders recommend it, I provided encouragement. She said she uses alcohol when unable to use tranquilizers or narcotic pain meds. She was somewhat open to hearing about the risks she exposes herself to and the adverse effects of the medications. Lab Results: Laboratory Tests 05/31/16 05:27 WBC 4.2 RBC 3.75 L Hgb 11.5 L Hct 35 MCV 94 MCH 31 MCHC 33 RDW 15 Plt Count 263 MPV 8 Exam Appearance: Well Developed/Nourished Hygiene: Normal Grooming: Fairly Well Kept Psychomotor Activities: Normal Attitude and Relatedness: Superficially Cooperative Eye Contact: Good - Speech Quality: Unpressured Latencies: Normal Quantity: Terse Patient's Decription of Mood: "Okay" Observed Affect: Non-labile Affect Consistent with: Euthymia Patient's Thought Process: Coherent, Impoverished Thought Content: No Passive Wish, No Suicidal Planning, No Homicidal Ideation, No Paranoid Ideation Experiencing Hallucinations: No, Sensorium is Clear Level of Consciousness: Alert Orientation: Yes Intact, Yes Orientated to Time - initially said May 03, but quickly corrected, Yes Orientated to Place, Yes Orientated to Person Impulse Control: Intact Insight and Judgement: Poor Impression - Impression Clinical Impression: 61 year-old female with a history of multiple psychiatric hospitalizations, suicide attempts, chronic alcohol and benzodiazepine/opioid use disorders with substance-induced mood features and history of encephalopathy; with medical comorbidity of seizure disorder and traumatic brain injury. She is stable behaviorally here, mildly dysphoric and anxious. She does not see role for voluntary psych. admission, and does not require emergency admission. Her primary risk is for inadvertent harm, or substanced induced mood symptoms ( which could lead to suicidal behavior); based on a long term care administrator pattern of reliance on alcohol and controlled substances. I support the idea of (eventual) substance rehab referral. Plan - Treatment Plan Treatment Plan: Medication management: continue citalopram, Melatonin avoid controlled medication due to unacceptable abuse potential Medications: Current Medications Acetaminophen (Tylenol Tab*) 650 mg PO Q6H PRN PRN Reason: FEVER/PAIN Last Admin: 06/03/16 09:01 Dose: 650 mg Albuterol (Ventolin 2.5 Mg/3 Ml Neb.Maria Luisa*) 2.5 mg INH Q2H PRN PRN Reason: SOB/WHEEZING Citalopram Hydrobromide (Celexa Tab*) 20 mg PO DAILY [facility] Last Admin: 06/03/16 09:03 Dose: 20 mg Docusate Sodium (Colace Cap*) 200 mg PO BID [facility] Last Admin: 06/03/16 09:04 Dose: Not Given Folic Acid (Folvite Tab*) 1 mg PO DAILY [facility] Last Admin: 06/03/16 09:03 Dose: 1 mg Gabapentin (Neurontin Cap(*)) 400 mg PO TID [facility] Last Admin: 06/03/16 08:59 Dose: 400 mg Heparin Sodium (Porcine) (Heparin Vial(*)) 5,000 units SUBCUT Q8HR [facility] Last Admin: 06/03/16 06:10 Dose: 5,000 units Hydroxyzine HCl (Atarax Tab*) 50 mg PO Q6H PRN PRN Reason: ANXIETY Last Admin: 06/02/16 15:03 Dose: 50 mg Ibuprofen (Motrin Tab*) 600 mg PO Q8H PRN PRN Reason: PAIN Last Admin: 06/02/16 15:37 Dose: 600 mg Lacosamide (Vimpat Tab*) 50 mg PO BID [facility] Last Admin: 06/03/16 08:59 Dose: 50 mg Lactulose (Lactulose*) 30 ml PO DAILY [facility] Last Admin: 06/03/16 09:04 Dose: Not Given Levetiracetam (Keppra Tab*) 750 mg PO 0900,1400,2100 [facility] Last Admin: 06/03/16 09:01 Dose: 750 mg Lorazepam (Ativan Tab(*)) 1 mg PO Q12H PRN PRN Reason: ANXIETY Last Admin: 06/03/16 09:02 Dose: 1 mg Magnesium Oxide (Magox 400 Tab*) 800 mg PO DAILY [facility] Last Admin: 06/03/16 09:03 Dose: 800 mg Melatonin (Melatonin (Nf)) 3 mg PO BEDTIME PRN; Protocol PRN Reason: Sleep Last Admin: 06/01/16 21:08 Dose: 3 mg Multivitamins/Minerals (Theragran/Minerals Tab*) 1 tab PO DAILY [facility] Last Admin: 06/03/16 09:01 Dose: 1 tab Nicotine (Nicotine Inhaler*) 10 mg INH Q2H PRN PRN Reason: CRAVING Last Admin: 06/02/16 20:29 Dose: 10 mg Omeprazole (Prilosec Cap*) 20 mg PO DAILY@0600 [facility] Last Admin: 06/03/16 06:10 Dose: 20 mg Ondansetron HCl (Zofran Inj*) 4 mg IV Q6H PRN PRN Reason: NAUSEA Last Admin: 05/26/16 08:05 Dose: 4 mg Polyvinyl Alcohol (Polyvinyl Alcohol 1.4% Opth*) 1 drop BOTH EYES Q2H PRN PRN Reason: DRY EYE Last Admin: 06/02/16 10:44 Dose: 1 drop Thiamine HCl (Vitamin B-1 Tab*) 100 mg PO DAILY [facility] Last Admin: 06/03/16 09:04 Dose: 100 mg
--- NOTE | 2016-06-03 13:18 | PN ---
Subjective Date of Service: 06/03/16 Interval History: Pt got anxious yesterday. Had a sensation of burning in R hand and thought she was going to have a seizure Objective Active Medications: Acetaminophen (Tylenol Tab*) 650 mg PO Q6H PRN PRN Reason: FEVER/PAIN Last Admin: 06/03/16 09:01 Dose: 650 mg Albuterol (Ventolin 2.5 Mg/3 Ml Neb.Maria Luisa*) 2.5 mg INH Q2H PRN PRN Reason: SOB/WHEEZING Citalopram Hydrobromide (Celexa Tab*) 20 mg PO DAILY [facility] Last Admin: 06/03/16 09:03 Dose: 20 mg Docusate Sodium (Colace Cap*) 200 mg PO BID [facility] Last Admin: 06/03/16 09:04 Dose: Not Given Folic Acid (Folvite Tab*) 1 mg PO DAILY [facility] Last Admin: 06/03/16 09:03 Dose: 1 mg Gabapentin (Neurontin Cap(*)) 400 mg PO TID [facility] Last Admin: 06/03/16 08:59 Dose: 400 mg Heparin Sodium (Porcine) (Heparin Vial(*)) 5,000 units SUBCUT Q8HR [facility] Last Admin: 06/03/16 06:10 Dose: 5,000 units Hydroxyzine HCl (Atarax Tab*) 50 mg PO Q6H PRN PRN Reason: ANXIETY Last Admin: 06/02/16 15:03 Dose: 50 mg Ibuprofen (Motrin Tab*) 600 mg PO Q8H PRN PRN Reason: PAIN Last Admin: 06/02/16 15:37 Dose: 600 mg Lacosamide (Vimpat Tab*) 50 mg PO BID [facility] Last Admin: 06/03/16 08:59 Dose: 50 mg Lactulose (Lactulose*) 30 ml PO DAILY [facility] Last Admin: 06/03/16 09:04 Dose: Not Given Levetiracetam (Keppra Tab*) 750 mg PO 0900,1400,2100 [facility] Last Admin: 06/03/16 09:01 Dose: 750 mg Lorazepam (Ativan Tab(*)) 1 mg PO Q12H PRN PRN Reason: ANXIETY Last Admin: 06/03/16 09:02 Dose: 1 mg Magnesium Oxide (Magox 400 Tab*) 800 mg PO DAILY [facility] Last Admin: 06/03/16 09:03 Dose: 800 mg Melatonin (Melatonin (Nf)) 3 mg PO BEDTIME PRN; Protocol PRN Reason: Sleep Last Admin: 06/01/16 21:08 Dose: 3 mg Multivitamins/Minerals (Theragran/Minerals Tab*) 1 tab PO DAILY [facility] Last Admin: 06/03/16 09:01 Dose: 1 tab Nicotine (Nicotine Inhaler*) 10 mg INH Q2H PRN PRN Reason: CRAVING Last Admin: 06/02/16 20:29 Dose: 10 mg Omeprazole (Prilosec Cap*) 20 mg PO DAILY@0600 [facility] Last Admin: 06/03/16 06:10 Dose: 20 mg Ondansetron HCl (Zofran Inj*) 4 mg IV Q6H PRN PRN Reason: NAUSEA Last Admin: 05/26/16 08:05 Dose: 4 mg Polyvinyl Alcohol (Polyvinyl Alcohol 1.4% Opth*) 1 drop BOTH EYES Q2H PRN PRN Reason: DRY EYE Last Admin: 06/02/16 10:44 Dose: 1 drop Thiamine HCl (Vitamin B-1 Tab*) 100 mg PO DAILY [facility] Last Admin: 06/03/16 09:04 Dose: 100 mg Vital Signs 06/02/16 06/02/16 06/02/16 14:16 15:19 16:16 Temperature 98.2 F Pulse Rate 81 Respiratory 16 16 18 Rate Blood Pressure 112/74 (mmHg) O2 Sat by Pulse 99 Oximetry 06/02/16 06/02/16 06/02/16 16:44 18:05 19:44 Temperature Pulse Rate 80 80 Respiratory 16 18 18 Rate Blood Pressure (mmHg) O2 Sat by Pulse 97 99 Oximetry 06/02/16 06/02/16 06/02/16 20:05 20:17 20:30 Temperature Pulse Rate Respiratory 20 20 16 Rate Blood Pressure (mmHg) O2 Sat by Pulse Oximetry 06/02/16 06/02/16 06/03/16 22:17 23:18 07:33 Temperature 98.0 F 98.2 F Pulse Rate 81 75 Respiratory 16 18 18 Rate Blood Pressure 95/63 102/73 (mmHg) O2 Sat by Pulse 98 98 Oximetry 06/03/16 06/03/16 06/03/16 08:00 08:59 09:02 Temperature Pulse Rate Respiratory 18 18 18 Rate Blood Pressure (mmHg) O2 Sat by Pulse Oximetry 06/03/16 06/03/16 10:59 11:02 Temperature Pulse Rate Respiratory 16 16 Rate Blood Pressure (mmHg) O2 Sat by Pulse Oximetry Oxygen Devices in Use Now: None Appearance: 61 yo F in nAD, aAOx3 Eyes: No Scleral Icterus, PERRLA Ears/Nose/Mouth/Throat: NL Teeth, Lips, Gums, Mucous Membranes Moist Neck: NL Appearance and Movements; NL JVP, Trachea Midline Respiratory: Symmetrical Chest Expansion and Respiratory Effort, Clear to Auscultation Cardiovascular: NL Sounds; No Murmurs; No JVD, RRR Abdominal: NL Sounds; No Tenderness; No Distention Lymphatic: No Cervical Adenopathy Extremities: No Edema, No Clubbing, Cyanosis Skin: No Rash or Ulcers, No Nodules or Sclerosis Neurological: Alert and Oriented x 3, - - r leg at +4/5, otherwise motor at 5/ 5. walking without support Result Diagrams: 05/31/16 05:27 05/26/16 05:18 Microbiology and Other Data: Microbiology 05/25/16 10:12 Urine Culture - Final Urine Assess/Plan/Problems-Billing Assessment: 61 yo F h/o CVA c/b seizure disorder, active etoh abuse and med non adherence p/ w partial seizures c/b right arm and leg weakness - Patient Problems (1) Seizure disorder Comment: according to EEG pt had epileptiform discharges when c/o R arm muscle spasms on 05/27/16, also noted epileptiform discharges on EEG on 05/30/16. Cont increased Keppra to 750 mg BID. Appreciate Neuro f/u- Vimpat started on with marked improvement of symptoms Cont Neurontin (increased from 300 to 400 mg TID after d/w psychiatry) Keep Ativan at a minimal dose due to h/o benzodiazepine OD in the past. Will d/w neuro if further changes are necessary. Otherwise pt is stable for discharge. CT shows known left encephalomalacia (after TBI in remote past) (2) Hepatic encephalopathy Comment: Resolved. cont Lactulose (dose lowered from BID to QD due to diarrhea on 06/01/16) (3) Polysubstance abuse Comment: opioids, benzo, MJ on urine drug screen (4) Non compliance with medical treatment Comment: counseled compliance (5) Anxiety Comment: appreciate Psychiatry's imput. will cont Atarax prn Celexa started on 06/01/16 improving (6) DVT prophylaxis Comment: heparin sc. Status and Disposition: Medically stable for discharge to STR
[2016-06-03] MEDS: Nicotine Inhaler* 10 MG AMP INH PRN (14:20)
[2016-06-03] MEDS: Ibuprofen TAB* 600 MG PO PRN (20:55)
[2016-06-03] MEDS ORDERED: Lacosamide TAB* 100 MG TAB PO SCH (21:00)
[2016-06-04] MEDS: Heparin VIAL(*) 5000 UNITS/ML VIAL (FIVE THOUSAND) SUBCUT SCH (06:08)
[2016-06-04] MEDS: Omeprazole CAP* 20 MG PO SCH (06:08)
[2016-06-04] MEDS: Docusate CAP* 100 MG PO SCH (07:57)
[2016-06-04] MEDS: Gabapentin CAP(*) 400 MG PO SCH (08:02)
[2016-06-04] MEDS: Multivitamins/Minerals TAB PO SCH (08:02)
[2016-06-04] MEDS: Citalopram TAB* 20 MG PO SCH (08:02)
[2016-06-04] MEDS: Thiamine TAB* 100 MG TAB PO SCH (08:03)
[2016-06-04] MEDS: Folic Acid TAB* 1 MG PO SCH (08:03)
[2016-06-04] MEDS: levETIRAcetam TAB* 500 MG PO SCH (08:03)
[2016-06-04] MEDS: Magnesium Oxide TAB* 400 MG PO SCH (08:03)
[2016-06-04] MEDS: LACTULOSE* 30 ML UDC PO SCH (08:03)
[2016-06-04] MEDS: LORazepam TAB(*) 1 MG PO PRN (08:06)
[2016-06-04] MEDS: Ibuprofen TAB* 600 MG PO PRN (08:43)
[2016-06-04 08:48] VITALS: BP 120/71
[2016-06-04] MEDS ORDERED: Lacosamide TAB* 50 MG TAB PO SCH (09:00)
--- NOTE | 2016-06-04 09:36 | DCNOTE ---
Patient seen this morning. Reports feeling well, symptoms are much improved. Says she is able to feed herself easily. Still a little "wobbly" at times but able to ambulate on her own. On exam, middle-aged, F, sitting on bed in NAD, RRR, s1 and s2 present , no m/g/r, abd soft, NTND, BS+, strength 5/5 throughout B/L UEs Plan to discharge home today with adjusted seizure medications. Will speak with family caseworker/SW regarding outpatient rehab options for the patient. She also says she is considering rehab in [facility] and may stay with her son in [place]. Will need close follow-up.
--- NOTE | 2016-06-05 03:00 | DS ---
DISCHARGE SUMMARY: DATE OF ADMISSION: 05/26/16 DATE OF DISCHARGE: 06/04/16 PRIMARY CARE PHYSICIAN: Joleen Gauthier MD. PRINCIPAL DISCHARGE DIAGNOSIS: Seizure disorder. SECONDARY DIAGNOSES: 1. Alcohol-induced mood disorder. 2. Anxiety. 3. Hypertension. 4. History of left occipital parietal cerebrovascular accident. 5. Hepatitis C. 6. Tobacco use disorder. DISCHARGE MEDICATION REGIMEN: 1. Citalopram 20 mg by mouth daily. 2. Gabapentin 400 mg by mouth 3 times daily. 3. Vimpat 50 mg in the morning, 100 mg by mouth at bedtime. 4. Ativan 0.5 mg by mouth 2 times daily as needed for seizures. 5. Keppra 750 mg by mouth 3 times daily. 6. Multivitamin 1 tablet by mouth daily. 7. Nicotine inhaler 10 mg inhaled 5 times daily as needed for cravings. 8. Lidoderm patch 1 patch transdermal every 12 hours. STUDIES DONE DURING HOSPITALIZATION: 1. CT of the brain without contrast, impression: Stable focus of encephalomalacia involving the cortex of the posterior left parietal lobe as described above in this otherwise nonacute brain CT. 2. EEG, 05/28/16, clinical impression: This is an abnormal waking and sleeping EEG due to the presence of a single seizure arising from the left parietal occipital region as well as slowing in discharges, which were most abundant in the left temporal region, but also noted in the left parietal occipital region. The seizure arising from the left parietal occipital region was manifested by pain in the right hand. Findings are suggestive of focal areas of neuronal dysfunction in the left temporal and parietal occipital regions with increased epileptic potential and an active seizure focussed in the left parietal occipital region. 3. Repeat EEG, 05/30/16, clinical impression: The digital EEG in the awake state is abnormal due to frequent sharp waves in the left frontotemporal region with some extension to the left parietal area. The above findings is suggestive of an epileptogenic focus in the same region. No clear seizures were seen. HISTORY OF PRESENT ILLNESS AND HOSPITAL SUMMARY: Please see the full history and physical by Dr. Damir Aguilar for full details. Briefly, Ms. Jack is a 61- year-old female with a past medical history as above including nonadherence to medications who presents to the hospital after running out of her gabapentin and Keppra, when she began to have intermittent right red neck episodes of myoclonus, also some burning in her right hand and the right foot. There was concern for seizure activity. Neurology was consulted and initially recommended 1 g of Keppra as well as 600 mg of gabapentin by mouth. The following day, the patient was evaluated by Neurology with a positive EEG showing areas of seizure. The patient continued to have intermittent symptoms and her medications continued to be adjusted as per Neurology. The decision was made to add Vimpat, which seemed to control the patient's symptoms very well and she had significant improvement after the addition of this medication. Neurology recommends continuing on Vimpat as well as Keppra and Neurontin. It was initially felt that the patient may need subacute rehab due to the issues with ambulation; however, in the days prior to discharge, she had significant improvement and it was not felt that she would need any further physical therapy. The patient was evaluated by Psychiatry due to her significant anxiety, particularly regarding the plan of care and home medications. Dr. Fry began the patient on a trial of citalopram at 20 mg by mouth daily and the patient's Paxil was stopped. Potential for outpatient rehab was discussed with the patient; however, she seems unwilling at this time to go for alcohol related rehab. She states she is considering moving in with her son in [place] and potentially going down to [place], [place], for alcohol rehab, although is not ready to commit at this time. The patient will be discharged home with outpatient followup with her PCP and Neurology. TIME SPENT: Total time spent on this discharge, 45 minutes. This is a summary of the hospitalization. Please see the full medical record for further details. CC: Joleen Gauthier MD; Dr. Barraza* [id number]/[facility] #: [id number] [facility] CENTERSanjana
== END 2016-06-04 12:00 | disposition home or self-care (01) | DRG 101 ==
LOC: ED 21:22 → MEDTELE 05-25 02:25 → OBSVTOIN 05-26 16:10 → MED 05-26 21:15
PROVIDERS: ADMIT Hospitalist; ATTEND Hospitalist
DX: G40.109 Localization-related (focal) (partial) symptomatic epilepsy and epileptic syndromes with simple partial seizures, not intractable, without status epilepticus (principal); G93.89 Other specified disorders of brain; K72.90 Hepatic failure, unspecified without coma; G81.91 Hemiplegia, unspecified affecting right dominant side; F10.24 Alcohol dependence with alcohol-induced mood disorder; T51.0X1A Toxic effect of ethanol, accidental (unintentional), initial encounter; Y90.0 Blood alcohol level of less than 20 mg/100 ml; F41.9 Anxiety disorder, unspecified; I10 Essential (primary) hypertension; B19.20 Unspecified viral hepatitis C without hepatic coma; F17.210 Nicotine dependence, cigarettes, uncomplicated; E87.6 Hypokalemia; F19.10 Other psychoactive substance abuse, uncomplicated; Z88.8 Allergy status to other drugs, medicaments and biological substances; Z91.14 Patient's other noncompliance with medication regimen; Z91.048 Other nonmedicinal substance allergy status; Z81.8 Family history of other mental and behavioral disorders; Z82.49 Family history of ischemic heart disease and other diseases of the circulatory system; Z80.42 Family history of malignant neoplasm of prostate; Z80.0 Family history of malignant neoplasm of digestive organs
CPT/HCPCS: 36415; 70450; 80048; 80053; 80307; 80320; 80329; 81003; 81015; 82140; 82550; 83605; 83735; 84484; 85025; 85027; 85610; 87086; 90686; 94760; 95816; 95819; 97530; 99406; A9270-GY; G0378; G0480; G8978-GP-CL; G8979-GP-CJ; J1644; J2060; J2405; J3480

== ENCOUNTER 2016-07-25 05:20 | Emergency (ER) | payer MEDICARE, MEDICAID ==
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
[2016-07-25 06:07] LABS: Hematocrit 36 % (35-47); Hemoglobin 12.2 g/dl (12.0-16.0); Mean Corpuscular HGB Conc 34 g/dl (31-36); Mean Corpuscular Hemoglobin 30 pg (27-31); Mean Corpuscular Volume 90 fL (80-97); Mean Platelet Volume 8 um3 (7.4-10.4); Red Blood Count 4.02 10^6/ul (4.0-5.4); Red Cell Distribution Width 15 % (10.5-15); White Blood Count 7.6 10^3/ul (3.5-10.8)
[2016-07-25 06:12] LABS: Urine Bacteria Absent (Absent); Urine Bilirubin Negative (Negative); Urine Glucose 1+(50 mg/dL) (Negative); Urine Nitrite Negative (Negative)
[2016-07-25 06:18] LABS: ALT 20 U/L (7-52); AST 36 U/L (13-39); Albumin 4.6 g/dL (3.2-5.2); Alkaline Phosphatase 74 U/L (34-104); Anion Gap 18 mmol/L (2-11); Blood Urea Nitrogen 14 mg/dL (6-24); CO2 Carbon Dioxide 27 mmol/L (22-32); Chloride 90 mmol/L (101-111); Creatine Kinase 230 U/L (10-223); EGFR African American 128.7 (>60); Globulin 2.7 g/dL (2-4); Glucose 113 mg/dL (70-100); Magnesium 1.5 mg/dL (1.9-2.7); Potassium 3.4 mmol/L (3.5-5.0); Sodium 135 mmol/L (133-145); Total Protein 7.3 g/dL (6.4-8.9)
[2016-07-25 06:22] LABS: Alcohol < 10 mg/dL (<10)
[2016-07-25 06:25] LABS: Benzodiazepine Urine Screen None Detected (None Detect)
[2016-07-25] MEDS ORDERED: Ondansetron ODT TAB* 4 MG ONE (06:58)
[2016-07-25] MEDS ORDERED: Ondansetron ODT TAB* 4 MG PO ONE (07:00)
[2016-07-25] MEDS ORDERED: Acetaminophen TAB* 325 MG PO ONE (10:37)
[2016-07-25 12:22] VITALS: BP 109/86
--- NOTE | 2016-07-25 12:59 | RAD ---
HISTORY: Seizure COMPARISONS: May 26, 2016 TECHNIQUE: Multiple contiguous axial CT scans were obtained of the head without intravenous contrast. FINDINGS: HEMORRHAGE/INFARCT: There is no hemorrhage or acute infarct. MASSES/SHIFT: There is no mass or shift. EXTRA-AXIAL SPACES: There are no extra-axial fluid collections. SULCI AND VENTRICLES: The sulci and ventricles are normal in size and position for the patient's stated age. CEREBRUM: There is stable encephalomalacia of the left parieto-occipital region BRAINSTEM: There are no focal parenchymal abnormalities. CEREBELLUM: There are no focal parenchymal abnormalities. VESSELS: The vessels are grossly normal. PARANASAL SINUSES: The paranasal sinuses are clear. ORBITS: The orbits are unremarkable. BONES AND SOFT TISSUE: No bone or soft tissue abnormalities are noted. OTHER: None IMPRESSION: STABLE LEFT PARIETO-OCCIPITAL ENCEPHALOMALACIA. NO ACUTE INTRACRANIAL PATHOLOGY
[2016-07-25] MEDS ORDERED: Ibuprofen TAB* 800 MG PO ONE ×2 (15:38→15:41)
[2016-07-25] MEDS ORDERED: Gabapentin CAP(*) 100 MG PO ONE (15:38)
[2016-07-25] MEDS ORDERED: Gabapentin CAP(*) 300 MG ONE (15:41)
[2016-07-25] MEDS ORDERED: Gabapentin CAP(*) 100 MG ONE (15:41)
--- NOTE | 2016-07-25 18:51 | ED ---
dionisio Montanez Timothy, scribed for Jai Hui MD on 07/25/16 at 1431 . Progress - Progress Note Progress Note: Lindy Jack is a 61 yo female presenting to [facility] with seizure. She was originally discharged by Dr. Keys at the shift change, but refused to leave. P/E Vital signs: reviewed General: Patient is comfortable lying in stretcher with no signs of distress HEENT: within normal limits Lungs: CTA B/L CVS: S1 & S2 present. No murmurs appreciated. ABDOMEN: Soft, non-tender. No signs of distention. No rebound no guarding, and no masses palpated. Bowel sounds are normal. EXTREMITIES: FROM in all major joints, no edema, no cyanosis or clubbing. NEURO: Alert and oriented x 3. No acute neurological deficits. Speech is normal and follows commands. SKIN: Dry and warm - Results/Orders Results/Orders: Brain CT: IMPRESSION: STABLE LEFT PARIETO-OCCIPITAL ENCEPHALOMALACIA. NO ACUTE INTRACRANIAL PATHOLOGY - EKG/XRAY/CT CT: Brain. See note. - Consult/PCP Time Called: 13:20 Re-Evaluation - Re-Evaluation First Eval Change: Improved - no sz in ed, pt awake, alert, not post ictal, will d/c continue present mredications, f/u neuro Course/Dx - Course Course Of Treatment: Lindy Jack is a 61 yo female presenting to [facility] with seizure. She was originally discharged by Dr. Keys at the shift change, but refused to leave. Her Brain CT suggests no acute intracranial pathology. Following her brain CT and a mental health unit evaluation recommending admission to [facility], as well as discussion with Dr. Milian, she will be discharged home. Pt was dischaged by Dr. Keys. I was informed by one of the nurses that the Pt was unable to ambulate and refused to be discharged. I spoke to the Pt and Pt reported that she did not feel better, and that she wants pain medication due to pain in her RUE where she has continuous "seizure". She is A& Ox3. She is able to move all 4 extremitires, but reports that she is unable to ambulate. Therefore I decided to order a head CT, which was negative for any acute pathology. I reviewed all the work up ordered by Dr. Keys and she is at her baseline. The only abnormal findings were potassium 3.4, glucose 113, lactic acid 2.6. At this point I discussed the case wiuth the case planner and psychiatric social worker supervisor who recommended the Pt be discharged to [facility]. Pt refused this. At this point we ordered a MHUE. The result of the MHUE was a recommendation for admission and placement. I spoke with the Pt about the plan, and she wants to be admitted and receive pain medication, but refuses to be placed. Therefore I requested a consultation with Dr. Milian for hoptalist services. Dr. Milian assessed the pt and reports that the Pt did not need to be admitted. The Pt then spoke to an infrastructure administrator and decided that she would be discharged to the [facility]. The Pt is hemodynamically stable and A&Ox3. - Diagnoses Provider Diagnoses: Seizure - Provider Notifications Discussed Care Of Patient With: 1427 - Dr. Milian (hospitalist) - discussed pt condition. Will consult with the psychiatric social worker supervisor and will discuss course of Tx further following consult. Will evaluate Pt for admission. 1454 - Dr. Milian ( hospitalist) - discussed evaluation of Pt, and possible courses of Tx including admission. The documentation as recorded by the dionisio bermeo Timothy accurately reflects the service I personally performed and the decisions made by me, Jai Hui MD.
== END 2016-07-25 15:50 | disposition home or self-care (01) ==
LOC: ED 05:20
DX: R56.9 Unspecified convulsions (principal)
CPT/HCPCS: 36415; 70450; 80053; 80307; 80320; 81003; 81015; 82550; 83605; 83735; 85025; 85610; 99283; A9270-GY; G0480

== ENCOUNTER 2016-07-25 17:25 | Inpatient (IN) | payer MEDICARE, MEDICAID ==
[2016-07-25] MEDS ORDERED: Albuterol 2.5 MG/3 ML NEB.SOL* (0.083%) INH PRN (17:35)
[2016-07-25] MEDS ORDERED: NS 0.9% 1000 ML* 1,000 ML IV SCH (17:45)
[2016-07-25] MEDS ORDERED: Lidocaine PATCH 5%* 1 PATCH ONE (17:51)
[2016-07-25] MEDS: hydrOXYzine HCL TAB* 50 MG PO PRN (17:53)
[2016-07-25] MEDS: Lidocaine PATCH 5%* 1 PATCH TRANSDERM SCH (17:53)
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
[2016-07-25] MEDS ORDERED: Mouth Piece, Nicotine* 1 EACH CARTRIDGE ONE (20:16)
[2016-07-25] MEDS: levETIRAcetam TAB* 500 MG PO SCH (20:26)
[2016-07-25] MEDS: Lacosamide TAB* 100 MG TAB PO SCH (20:26)
[2016-07-25] MEDS: Gabapentin CAP(*) 400 MG PO SCH (20:26)
[2016-07-25] MEDS: Nicotine Inhaler* 10 MG AMP INH PRN (20:28)
[2016-07-25] MEDS: Ibuprofen TAB* 600 MG PO PRN (20:30)
[2016-07-25] MEDS: Lidocaine Patch REMOVE* 1 NOTE MISC PATCH OFF SCH (20:33)
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
[2016-07-25] MEDS: Heparin VIAL(*) 5000 UNITS/ML VIAL (FIVE THOUSAND) SUBCUT SCH (22:17)
--- NOTE | 2016-07-25 22:58 | CONS ---
CONSULTATION AND ADMISSION NOTE: ADDENDUM: DATE OF CONSULTATION: 07/25/16 The patient was [facility] to the prison with [facility] to meet her at that time. She was brought by tax i; however, after arriving, the patient refused to get out of the taxi. Therefore, the prison refu sed to accept her and the patient was brought back to the emergency room in taxi. She had no additi onal seizure activity from the time she was discharged to the time she returned today. She still in dicates that her last seizure was yesterday. Her major complaint still continued to be pain that is migratory in nature in arms, hands, feet, legs and hips. At this point, she will be admitted custo dial to the hospital and continued on all of her home medications. ASSESSMENT AND PLAN: This is a 61-year-old female, past medical history as outlined above including seizure disorder, hypertension, alcohol-induced mood disorder, tobacco abuse who presented to the [facility] with complaints of seizures, was monitored and discharge earlier today and discharged again later today; however, would not exit her vehicle at the prison and now returning. She will be admi tted [facility] care with plan to have her evaluated by Psychiatry for her ability to participate in discharge planning. On my conversation with the patient now, she does not feel that she will be abl e to care for herself at home or at the prison. She is unclear on what would have to have in order for her to care for herself at home. Of note, on her last hospital stay in May, discharged to [facility], subacute nursing was desired by the team; however, the patient disagreed at that time. Her repeated hospital stays seem to indicate her inability to care for herself at home with very poo r judgment and insight between these stays. Seizure disorder: Continue Vimpat, Keppra, and gabapentin. History of alcohol abuse, opioid abuse: Holding Ativan and other opioids at this time. For pain, I will only provide Motrin and her Lidoderm patch. Nicotine dependence: Continue with nicotine inhaler. Alcohol-induced mood disorder: Continue cital opram as recommended by Dr. Fry during the patient's last stay. DVT prophylaxis: Heparin subcu. [id number]/[facility] #: [id number]
[2016-07-26] MEDS: hydrOXYzine HCL TAB* 50 MG PO PRN (00:51)
[2016-07-26] MEDS: Ibuprofen TAB* 600 MG PO PRN ×3 (02:30→23:21)
[2016-07-26] MEDS: Heparin VIAL(*) 5000 UNITS/ML VIAL (FIVE THOUSAND) SUBCUT SCH ×3 (06:03→23:20)
[2016-07-26] MEDS: Lidocaine PATCH 5%* 1 PATCH TRANSDERM SCH (08:13)
[2016-07-26] MEDS: levETIRAcetam TAB* 500 MG PO SCH ×3 (08:13→23:25)
[2016-07-26] MEDS: Multivitamins/Minerals TAB PO SCH (08:17)
[2016-07-26] MEDS: Gabapentin CAP(*) 400 MG PO SCH ×3 (08:17→23:19)
[2016-07-26] MEDS: Citalopram TAB* 20 MG PO SCH (08:18)
[2016-07-26] MEDS: Lacosamide TAB* 50 MG TAB PO SCH (08:20)
--- NOTE | 2016-07-26 13:27 | PN ---
Progress Note - Progress Note Note: Psychiatry Case d.w. Dr. Milian, capacity evaluation was conducted. See dictated consultation note for details: Ms. Jack lacks mental capacity at this time to refuse a medically indicated shelter placement.
[2016-07-26] MEDS: Nicotine Inhaler* 10 MG AMP INH PRN (15:08)
--- NOTE | 2016-07-26 16:26 | PN ---
Subjective Date of Service: 07/26/16 Interval History: Seen and examined this AM Reports she does not remember anything from yesterday Would like something stronger for pain which was declined Does not want to be placed in rehab or half-way care facility Objective Active Medications: Albuterol (Ventolin 2.5 Mg/3 Ml Neb.Maria Luias*) 2.5 mg INH [id number] AWAKE PRN PRN Reason: sob/wheezing Citalopram Hydrobromide (Celexa Tab*) 20 mg PO DAILY COUNT INCLUDES [facility] Last Admin: 07/26/16 08:18 Dose: 20 mg Gabapentin (Neurontin Cap(*)) 400 mg PO TID COUNT INCLUDES [facility] Last Admin: 07/26/16 13:32 Dose: 400 mg Heparin Sodium (Porcine) (Heparin Vial(*)) 5,000 units SUBCUT Q8HR COUNT INCLUDES THE [facility] Last Admin: 07/26/16 13:30 Dose: 5,000 units Hydroxyzine HCl (Atarax Tab*) 50 mg PO Q6H PRN PRN Reason: ANXIETY Last Admin: 07/26/16 00:51 Dose: 50 mg Ibuprofen (Motrin Tab*) 600 mg PO Q6H PRN PRN Reason: PAIN Last Admin: 07/26/16 11:20 Dose: 600 mg Lacosamide (Vimpat Tab*) 50 mg PO QAM COUNT INCLUDES [facility] Last Admin: 07/26/16 08:20 Dose: 50 mg Lacosamide (Vimpat Tab*) 100 mg PO QPM COUNT INCLUDES [facility] Last Admin: 07/25/16 20:26 Dose: 100 mg Levetiracetam (Keppra Tab*) 750 mg PO 0900,1400,2100 COUNT [facility]CLUDES [facility] Last Admin: 07/26/16 13:32 Dose: 750 mg Lidocaine (Lidoderm 5% Patch*) 1 patch TRANSDERM DAILY COUNT [facility]CLUDES [facility] Last Admin: 07/26/16 08:13 Dose: 1 patch Multivitamins/Minerals (Theragran/Minerals Tab*) 1 tab PO DAILY COUNT INCLUDES [facility] Last Admin: 07/26/16 08:17 Dose: 1 tab Nicotine (Nicotine Inhaler*) 10 mg INH FIVE TIMES DAILY PRN PRN Reason: CRAVINGS Last Admin: 07/26/16 15:08 Dose: 10 mg Pharmacy Profile Note (Lidocaine Patch Remove*) 1 note PATCH OFF 2100 COUNT INCLUDES [facility] Last Admin: 07/25/16 20:33 Dose: 1 note Vital Signs 07/25/16 07/25/16 07/25/16 17:40 17:41 18:00 Temperature Pulse Rate 107 107 Respiratory Rate Blood Pressure 137/113 (mmHg) O2 Sat by Pulse 99 97 Oximetry 07/25/16 07/25/16 07/25/16 18:40 20:26 20:34 Temperature 100.6 F 99.6 F Pulse Rate 110 Respiratory 18 16 Rate Blood Pressure 127/96 (mmHg) O2 Sat by Pulse 98 Oximetry 07/25/16 07/25/16 07/26/16 22:25 23:33 03:18 Temperature 98.0 F 97.4 F Pulse Rate 93 82 Respiratory 16 18 18 Rate Blood Pressure 103/71 99/65 (mmHg) O2 Sat by Pulse 99 100 Oximetry 07/26/16 07/26/16 07/26/16 07:35 08:00 08:17 Temperature 97.7 F Pulse Rate 73 Respiratory 16 16 16 Rate Blood Pressure 103/67 (mmHg) O2 Sat by Pulse 98 Oximetry 07/26/16 07/26/16 07/26/16 10:17 11:47 13:32 Temperature 97.9 F Pulse Rate 78 Respiratory 17 16 16 Rate Blood Pressure 106/79 (mmHg) O2 Sat by Pulse 98 Oximetry 07/26/16 07/26/16 15:20 15:32 Temperature 97.1 F Pulse Rate 81 Respiratory 16 16 Rate Blood Pressure 112/78 (mmHg) O2 Sat by Pulse 99 Oximetry Oxygen Devices in Use Now: None Appearance: sitting up in bed, NAD Eyes: No Scleral Icterus, PERRLA Ears/Nose/Mouth/Throat: - - poor dentition Neck: NL Appearance and Movements; NL JVP, Trachea Midline Respiratory: Symmetrical Chest Expansion and Respiratory Effort Cardiovascular: RRR Abdominal: NL Sounds; No Tenderness; No Distention, No Hepatosplenomegaly Extremities: No Edema Skin: - - extensive bruising Neurological: - - AOx 2 to self and location Assess/Plan/Problems-Billing Assessment: 61 yo F h/o alcohol/opioid abuse and alcohol induced mood disorder, seizure disorder, medication non-adherence admitted to hospital after she was discharged to fpc from ED but refused to exit cab and was returned to hospital - Patient Problems (1) Cognitive disorder Comment: Pt is unable to care for her own needs at home. She does not have the basic necessities at home including electricity. She has been unable to manage her own medications resulting in repeated hospital stays for seizures. She is unable to recognize the danger in returning home and it is this provider's strong recommendation that she be transferred to a NH. Appreciate psychiatries assistance in capacity evaluation. Referrals for placement will be sent out. (2) Polysubstance abuse Comment: motrin ONLY for pain management This was discussed at great length prior to patient's admission (3) Seizure disorder Comment: clarice Calderón (4) Chronic pain Comment: motrin (5) DVT prophylaxis Comment: heparin sc. Status and Disposition: discharge to NH. Pt lacks capacity to refuse at this point
[2016-07-26] MEDS: Lacosamide TAB* 100 MG TAB PO SCH (17:09)
--- NOTE | 2016-07-26 22:02 | CONS ---
PSYCHIATRIC CONSULTATION: DATE OF CONSULT: 07/26/2016. IDENTIFYING DATA: Lindy Jack is a 61-year-old female with a history of severe chronic alcohol use disorder, benzodiazepine, and opiate use disorders, encephalopathy, multiple psychiatric hospitalizations, previous suicide attempts , and medical comorbidity of seizure condition, and traumatic brain injury. Psychiatric consultation was requested to evaluate her mental capacity to refuse the medically indicated fci placement. CONTEXT: I have discussed the case with Dr. Henry Milian and the treatment team has determined that Ms. Jack requires skilled support and placement in a fci at this time based on her inability to maintain her own basic needs at home due to her functional impairments, and her capacity to refuse that is in question. I introduced myself to Lindy. She was a little familiar with me from prior clinical encounters and I framed our current discussion: I informed her that I was with her to evaluate her mental capacity to refuse the fci placement. She appeared to understand that framework. On the issue of Ms. Jack refusing a medically indicated fci placement at this time: 1. She makes reasonably clear choice. She states she wants to go home and she asked me to advocate for her to support that decision. 2. She failed to manage the facts. She said she cannot recall why she is in the hospital, she recognizes injuries on her body and bruises and does not know how she got them, although she does recognize that she has had seizures. She dismisses the idea that she is at any risk at home. She states she has a dog, which means she will be safe. She denied being at any medical risks or any risks of harm due to her inability to care for herself. This was despite her recognizing and mentioning on her own that she was not taking her seizure medicines properly without supervision. 3. Ms. Jack fails to appreciate her mental deficits or the severity of her situation. 4. She fails to manage the information that she has been given as we would expect of an average individual. Ms. Jack has diminished mental capacity for the decision. On mental status examination, she failed to orient to the date, and while she knew it was near "," she thought we were in October and approaching fall in terms of season. FINDING: Lindy Jack lacks mental capacity at this time to refuse a medically indicated fci placement. RECOMMENDATION: Invoke surrogate decisional agency and try to work with Ms. Jack in her adjusting to her needs and the implications for what settings she needs to be in. Thank you for the opportunity to participate in Ms. Jack's evaluation. Please contact me if there are any additional questions or concerns. [id number]/[facility] #: [id number] BRAIN
[2016-07-26] MEDS: Lidocaine Patch REMOVE* 1 NOTE MISC PATCH OFF SCH (23:27)
[2016-07-27] MEDS: Heparin VIAL(*) 5000 UNITS/ML VIAL (FIVE THOUSAND) SUBCUT SCH ×3 (06:21→21:57)
[2016-07-27] MEDS: Lidocaine PATCH 5%* 1 PATCH TRANSDERM SCH (09:58)
[2016-07-27] MEDS: Nicotine Inhaler* 10 MG AMP INH PRN ×4 (09:58→20:05)
[2016-07-27] MEDS: levETIRAcetam TAB* 500 MG PO SCH ×3 (09:58→20:02)
[2016-07-27] MEDS: Gabapentin CAP(*) 400 MG PO SCH ×3 (09:59→20:02)
[2016-07-27] MEDS: Lacosamide TAB* 50 MG TAB PO SCH (09:59)
[2016-07-27] MEDS: Citalopram TAB* 20 MG PO SCH (09:59)
[2016-07-27] MEDS: Ibuprofen TAB* 600 MG PO PRN ×3 (09:59→21:57)
[2016-07-27] MEDS: Multivitamins/Minerals TAB PO SCH (09:59)
[2016-07-27] MEDS: hydrOXYzine HCL TAB* 50 MG PO PRN ×2 (14:09→20:05)
[2016-07-27] MEDS: Lacosamide TAB* 100 MG TAB PO SCH (18:01)
--- NOTE | 2016-07-27 19:26 | PN ---
Subjective Date of Service: 07/27/16 Interval History: Patient reports exacerbation of chronic back pain. Asking for pain medications. She reports alcohol abuse up to day of admission. She states she has bruises from a "bad fall." She remembers talking to Dr. Singh yesterday, and that he stated she needs to stay in a fpc. Family History: Unchanged from Admission Social History: Unchanged from Admission Past Medical History: Unchanged from Admission Objective Active Medications: Albuterol (Ventolin 2.5 Mg/3 Ml Neb.Maria Luisa*) 2.5 mg INH [id number] AWAKE PRN PRN Reason: sob/wheezing Citalopram Hydrobromide (Celexa Tab*) 20 mg PO DAILY [facility] Last Admin: 07/27/16 09:59 Dose: 20 mg Gabapentin (Neurontin Cap(*)) 400 mg PO TID [facility] Last Admin: 07/27/16 13:31 Dose: 400 mg Heparin Sodium (Porcine) (Heparin Vial(*)) 5,000 units SUBCUT Q8HR [facility] Last Admin: 07/27/16 13:31 Dose: 5,000 units Hydroxyzine HCl (Atarax Tab*) 50 mg PO Q6H PRN PRN Reason: ANXIETY Last Admin: 07/27/16 14:09 Dose: 50 mg Ibuprofen (Motrin Tab*) 600 mg PO Q6H PRN PRN Reason: PAIN Last Admin: 07/27/16 15:57 Dose: 600 mg Lacosamide (Vimpat Tab*) 50 mg PO QAM [facility] Last Admin: 07/27/16 09:59 Dose: 50 mg Lacosamide (Vimpat Tab*) 100 mg PO QPM [facility] Last Admin: 07/27/16 18:01 Dose: 100 mg Levetiracetam (Keppra Tab*) 750 mg PO 0900,1400,2100 [facility] Last Admin: 07/27/16 13:31 Dose: 750 mg Lidocaine (Lidoderm 5% Patch*) 1 patch TRANSDERM DAILY [facility] Last Admin: 07/27/16 09:58 Dose: 1 patch Multivitamins/Minerals (Theragran/Minerals Tab*) 1 tab PO DAILY [facility] Last Admin: 07/27/16 09:59 Dose: 1 tab Nicotine (Nicotine Inhaler*) 10 mg INH FIVE TIMES DAILY PRN PRN Reason: CRAVINGS Last Admin: 07/27/16 18:03 Dose: 10 mg Pharmacy Profile Note (Lidocaine Patch Remove*) 1 note PATCH OFF 2100 [facility] Last Admin: 07/26/16 23:27 Dose: 1 note Vital Signs 07/27/16 07/27/16 07/27/16 11:10 11:59 13:31 Temperature 36.7 C Pulse Rate 82 Respiratory 16 2 16 Rate Blood Pressure 136/89 (mmHg) O2 Sat by Pulse 100 Oximetry 07/27/16 07/27/16 15:18 15:31 Temperature 36.7 C Pulse Rate 84 Respiratory 16 16 Rate Blood Pressure 148/110 (mmHg) O2 Sat by Pulse 100 Oximetry Oxygen Devices in Use Now: None Appearance: bruises on RT side face Eyes: No Scleral Icterus Ears/Nose/Mouth/Throat: Clear Oropharnyx Neck: No Thyroid Enlargement, Masses Respiratory: Clear to Auscultation Cardiovascular: NL Sounds; No Murmurs; No JVD Abdominal: NL Sounds; No Tenderness; No Distention Neurological: - - awake, cooperative, oriented to place, person Lines/Tubes/Other Access: Clean, Dry and Intact Peripheral IV Assess/Plan/Problems-Billing Assessment: 61 yo F h/o alcohol/opioid abuse and alcohol induced mood disorder, seizure disorder, medication non-adherence admitted to hospital after she was discharged to [facility] from ED but refused to exit cab and was returned to hospital - Patient Problems (1) Cognitive disorder Current Visit: Yes Status: Acute Priority: High Onset Date: 07/06/14 Code(s): F09 - UNSP MENTAL DISORDER DUE TO KNOWN PHYSIOLOGICAL CONDITION SNOMED Code(s): 418304732 Comment: -appreciate psychiatric input, re capacity -will need re-eval from psychiatry in 1-2 days -current plan is placement in SNF, not caring for basic needs at home (2) Polysubstance abuse Current Visit: Yes Status: Acute Priority: Medium Onset Date: 07/06/14 Code(s): F19.10 - OTHER PSYCHOACTIVE SUBSTANCE ABUSE, UNCOMPLICATED SNOMED Code(s): 123920578 Comment: -motrin ONLY for pain management ; will avoid opiates for pain -known alcohol abuse history, no sign of withdrawal at this time (3) Seizure disorder Current Visit: No Status: Acute Code(s): G40.909 - EPILEPSY, UNSP, NOT INTRACTABLE, WITHOUT STATUS EPILEPTICUS SNOMED Code(s): 323476820 Comment: -CT shows known left encephalomalacia (after TBI in remote past) -continue lacosamide and keppra -on gabapentin for pain, may be adjunct for seizure as well Status and Disposition: discharge to NH. Pt lacks capacity to refuse at this point
[2016-07-27] MEDS: Lidocaine Patch REMOVE* 1 NOTE MISC PATCH OFF SCH (20:05)
[2016-07-28] MEDS: Ibuprofen TAB* 600 MG PO PRN ×3 (05:55→16:55)
[2016-07-28] MEDS: Heparin VIAL(*) 5000 UNITS/ML VIAL (FIVE THOUSAND) SUBCUT SCH ×3 (05:56→21:14)
[2016-07-28] MEDS: hydrOXYzine HCL TAB* 50 MG PO PRN ×3 (05:56→21:14)
[2016-07-28] MEDS: Nicotine Inhaler* 10 MG AMP INH PRN ×3 (06:02→21:19)
[2016-07-28] MEDS: Gabapentin CAP(*) 400 MG PO SCH ×3 (07:56→21:12)
[2016-07-28] MEDS: Citalopram TAB* 20 MG PO SCH (07:56)
[2016-07-28] MEDS: Lacosamide TAB* 50 MG TAB PO SCH (07:56)
[2016-07-28] MEDS: levETIRAcetam TAB* 500 MG PO SCH ×3 (07:57→21:13)
[2016-07-28] MEDS: Multivitamins/Minerals TAB PO SCH (07:57)
[2016-07-28] MEDS: Lidocaine PATCH 5%* 1 PATCH TRANSDERM SCH (07:58)
[2016-07-28] MEDS ORDERED: Docusate CAP* 100 MG PO PRN (10:56)
[2016-07-28] MEDS ORDERED: Senna TAB PO PRN (10:56)
[2016-07-28] MEDS: Lacosamide TAB* 100 MG TAB PO SCH (17:57)
[2016-07-28] MEDS: Polyethylene Glycol 3350* 17 GM PACKET PO PRN (19:37)
[2016-07-28] MEDS: Lidocaine Patch REMOVE* 1 NOTE MISC PATCH OFF SCH (21:21)
[2016-07-29] MEDS: Polyethylene Glycol 3350* 17 GM PACKET PO PRN (06:01)
[2016-07-29] MEDS: Heparin VIAL(*) 5000 UNITS/ML VIAL (FIVE THOUSAND) SUBCUT SCH ×3 (06:01→21:24)
[2016-07-29] MEDS: Nicotine Inhaler* 10 MG AMP INH PRN ×5 (06:08→21:23)
[2016-07-29] MEDS: Lacosamide TAB* 50 MG TAB PO SCH (07:38)
[2016-07-29] MEDS: Gabapentin CAP(*) 400 MG PO SCH ×3 (07:38→21:23)
[2016-07-29] MEDS: Citalopram TAB* 20 MG PO SCH (07:38)
[2016-07-29] MEDS: Multivitamins/Minerals TAB PO SCH (07:38)
[2016-07-29] MEDS: Ibuprofen TAB* 600 MG PO PRN ×2 (07:39→19:48)
[2016-07-29] MEDS: levETIRAcetam TAB* 500 MG PO SCH ×3 (07:39→21:24)
[2016-07-29] MEDS: Lidocaine PATCH 5%* 1 PATCH TRANSDERM SCH (07:40)
[2016-07-29] MEDS: hydrOXYzine HCL TAB* 50 MG PO PRN ×3 (07:42→19:49)
[2016-07-29] MEDS: Nicotine PATCH 14 MG/24 HR* PATCH TRANSDERM SCH (16:33)
[2016-07-29] MEDS: Lacosamide TAB* 100 MG TAB PO SCH (16:33)
[2016-07-29] MEDS: Lidocaine Patch REMOVE* 1 NOTE MISC PATCH OFF SCH (21:30)
[2016-07-29] MEDS: Nicotine Patch Removal NOTE FOLLOW UP SCH (21:30)
[2016-07-30] MEDS: Ibuprofen TAB* 600 MG PO PRN ×2 (02:29→17:22)
[2016-07-30] MEDS: hydrOXYzine HCL TAB* 50 MG PO PRN ×3 (02:30→19:35)
[2016-07-30] MEDS: Heparin VIAL(*) 5000 UNITS/ML VIAL (FIVE THOUSAND) SUBCUT SCH ×3 (05:27→21:36)
[2016-07-30] MEDS: Nicotine Inhaler* 10 MG AMP INH PRN ×5 (05:27→19:35)
[2016-07-30] MEDS ORDERED: Acetaminophen TAB* 325 MG PO PRN (07:52)
[2016-07-30] MEDS: Nicotine PATCH 14 MG/24 HR* PATCH TRANSDERM SCH (08:08)
[2016-07-30] MEDS: Lacosamide TAB* 50 MG TAB PO SCH (08:09)
[2016-07-30] MEDS: Lidocaine PATCH 5%* 1 PATCH TRANSDERM SCH (08:09)
[2016-07-30] MEDS: Gabapentin CAP(*) 400 MG PO SCH ×3 (08:09→21:28)
[2016-07-30] MEDS: Multivitamins/Minerals TAB PO SCH (08:09)
[2016-07-30] MEDS: Citalopram TAB* 20 MG PO SCH (08:10)
[2016-07-30] MEDS: levETIRAcetam TAB* 500 MG PO SCH ×3 (08:10→21:28)
[2016-07-30] MEDS ORDERED: CMCS: Melatonin (NF) 3 MG TAB PO PRN (16:38)
--- NOTE | 2016-07-30 16:50 | PN ---
Progress Note - Progress Note Note: Lindy asked to see me because she wants to go home. In speaking with Lindy she states that she thinks Dr. Singh is torturing her. She states that when he did the capacity evaluation he asked her the she states that she said it was Memorial Day and that Dr. Singh said no, its Labor Day. She keeps insisting that "he" is punishing her because she is hurt. I have explained that we do not feel she is safe to go home at this time and that we would like her to go to rehab first and that if a bed is offered and she still refusees to go that Dr. Singh will be up to do a repeat capacity evaluation. She still insists that she is not going to go rehab.
[2016-07-30] MEDS: Lacosamide TAB* 100 MG TAB PO SCH (17:15)
[2016-07-30] MEDS: Nicotine Patch Removal NOTE FOLLOW UP SCH (21:30)
[2016-07-30] MEDS: Lidocaine Patch REMOVE* 1 NOTE MISC PATCH OFF SCH (21:30)
[2016-07-31] MEDS: Heparin VIAL(*) 5000 UNITS/ML VIAL (FIVE THOUSAND) SUBCUT SCH ×2 (06:08→13:24)
[2016-07-31] MEDS: Nicotine Inhaler* 10 MG AMP INH PRN ×2 (06:08→10:38)
[2016-07-31 07:34] VITALS: BP 146/99
[2016-07-31] MEDS: Gabapentin CAP(*) 400 MG PO SCH ×2 (08:58→13:27)
[2016-07-31] MEDS: levETIRAcetam TAB* 500 MG PO SCH ×2 (08:58→13:27)
[2016-07-31] MEDS: Ibuprofen TAB* 600 MG PO PRN (08:58)
[2016-07-31] MEDS: Multivitamins/Minerals TAB PO SCH (08:59)
[2016-07-31] MEDS: Lacosamide TAB* 50 MG TAB PO SCH (08:59)
[2016-07-31] MEDS: Citalopram TAB* 20 MG PO SCH (08:59)
[2016-07-31] MEDS: Nicotine PATCH 14 MG/24 HR* PATCH TRANSDERM SCH (08:59)
[2016-07-31] MEDS: Lidocaine PATCH 5%* 1 PATCH TRANSDERM SCH (08:59)
[2016-07-31] MEDS: hydrOXYzine HCL TAB* 50 MG PO PRN (10:38)
--- NOTE | 2016-07-31 11:31 | PN ---
Subjective Date of Service: 07/31/16 Interval History: Pt is feeling well. She states she feels great not smoking or drinking over the last 6 days. She tells me today that the lidocaine patch on her L hip incision has helped the pain more than anything and is frustrated that medicare/medicaid will not pay for the patches. I spoke with the patient's design engineer agricultural equipment Antonio who states that Lindy is absolutely allowed to come back home. He states that the only reason he said she can not come home initially was because he was sick. He states she can return home today. He is willing to help her with her medications and is ok with [facility] being set up to come to the home and check on Lindy. At this time I do not believe the patient needs to go to a alf making her capacity to make discharge plans not applicable as she has a safe d/ c plan. Family History: Unchanged from Admission Social History: Unchanged from Admission Past Medical History: Unchanged from Admission Objective Active Medications: Acetaminophen (Tylenol Tab*) 650 mg PO Q4H PRN PRN Reason: PAIN Last Admin: 07/30/16 09:56 Dose: 650 mg Albuterol (Ventolin 2.5 Mg/3 Ml Neb.Maria Luisa*) 2.5 mg INH [id number] AWAKE PRN PRN Reason: sob/wheezing Citalopram Hydrobromide (Celexa Tab*) 20 mg PO DAILY [facility] Last Admin: 07/31/16 08:59 Dose: 20 mg Docusate Sodium (Colace Cap*) 100 mg PO BID PRN PRN Reason: CONSTIPATION Last Admin: 07/28/16 19:59 Dose: 100 mg Gabapentin (Neurontin Cap(*)) 400 mg PO TID [facility] Last Admin: 07/31/16 08:58 Dose: 400 mg Heparin Sodium (Porcine) (Heparin Vial(*)) 5,000 units SUBCUT Q8HR [facility] Last Admin: 07/31/16 06:08 Dose: 5,000 units Hydroxyzine HCl (Atarax Tab*) 50 mg PO Q6H PRN PRN Reason: ANXIETY Last Admin: 07/31/16 10:38 Dose: 50 mg Ibuprofen (Motrin Tab*) 600 mg PO Q6H PRN PRN Reason: PAIN Last Admin: 07/31/16 08:58 Dose: 600 mg Lacosamide (Vimpat Tab*) 50 mg PO QAM [facility] Last Admin: 07/31/16 08:59 Dose: 50 mg Lacosamide (Vimpat Tab*) 100 mg PO QPM [facility] Last Admin: 07/30/16 17:15 Dose: 100 mg Levetiracetam (Keppra Tab*) 750 mg PO 0900,1400,2100 [facility] Last Admin: 07/31/16 08:58 Dose: 750 mg Lidocaine (Lidoderm 5% Patch*) 1 patch TRANSDERM DAILY [facility] Last Admin: 07/31/16 08:59 Dose: 1 patch Melatonin (Melatonin (Nf)) 3 mg PO BEDTIME PRN; Protocol PRN Reason: insomnia Last Admin: 07/30/16 21:34 Dose: 3 mg Multivitamins/Minerals (Theragran/Minerals Tab*) 1 tab PO DAILY [facility] Last Admin: 07/31/16 08:59 Dose: 1 tab Nicotine (Nicotine Patch 14 Mg/24 Hr*) 1 patch TRANSDERM 0800 [facility] Last Admin: 07/31/16 08:59 Dose: 1 patch Nicotine (Nicotine Inhaler*) 10 mg INH Q2H PRN PRN Reason: CRAVINGS Last Admin: 07/31/16 10:38 Dose: 10 mg Pharmacy Profile Note (Lidocaine Patch Remove*) 1 note PATCH OFF 2099 [facility] Last Admin: 07/30/16 21:30 Dose: 1 note Pharmacy Profile Note (Nicotine Patch Removal Note*) 1 note FOLLOW UP 2099 [facility] Last Admin: 07/30/16 21:30 Dose: 1 note Polyethylene Glycol/Electrolytes (Miralax*) 17 gm PO DAILY PRN PRN Reason: CONSTIPATION Last Admin: 07/29/16 06:01 Dose: 17 gm Senna (Senokot Tab*) 1 tab PO BEDTIME PRN PRN Reason: CONSTIPATION Last Admin: 07/28/16 11:58 Dose: 1 tab Vital Signs 07/30/16 07/30/16 07/30/16 11:56 14:45 16:45 Temperature 98.2 F Pulse Rate 85 Respiratory 16 16 16 Rate Blood Pressure 135/98 (mmHg) O2 Sat by Pulse 99 Oximetry 07/30/16 07/30/16 07/30/16 21:28 21:31 23:28 Temperature Pulse Rate Respiratory 20 20 16 Rate Blood Pressure (mmHg) O2 Sat by Pulse Oximetry 07/31/16 07/31/1617 07:26 08:00 08:58 Temperature Pulse Rate 91 Respiratory 18 16 16 Rate Blood Pressure 146/99 (mmHg) O2 Sat by Pulse 97 Oximetry Oxygen Devices in Use Now: None Appearance: Middle aged female standing in the bathroom, NAD Eyes: No Scleral Icterus Ears/Nose/Mouth/Throat: Mucous Membranes Moist Respiratory: Symmetrical Chest Expansion and Respiratory Effort, Clear to Auscultation Cardiovascular: NL Sounds; No Murmurs; No JVD, RRR, No Edema Abdominal: NL Sounds; No Tenderness; No Distention Extremities: No Clubbing, Cyanosis Skin: No Rash or Ulcers Neurological: Alert and Oriented x 3, - Assess/Plan/Problems-Billing Ms Jack is a 61 yo F with a h/o alcohol/opioid abuse and alcohol induced mood disorder, seizure disorder and medication non-adherence who was admitted to hospital after she was discharged to retirement from ED but refused to exit cab and was returned to hospital. She was admitted under assisted care initially being deemed to not have capacity to make d/c plans. - Patient Problems (1) Polysubstance abuse Current Visit: Yes Status: Acute Onset Date: 07/06/14 Code(s): F19.10 - OTHER PSYCHOACTIVE SUBSTANCE ABUSE, UNCOMPLICATED SNOMED Code(s): 065370989 Comment: Pt at this time is ready to go home. While she makes very poor decisions she has a safe d/c plan to go back to her design engineer agricultural equipment's home. She is interested in getting information on local AA meetings and would like an Rx sent for nicotine patches to her pharmacy. (2) Seizure disorder Current Visit: Yes Status: Acute Onset Date: 12/22/14 Code(s): G40.909 - EPILEPSY, UNSP, NOT INTRACTABLE, WITHOUT STATUS EPILEPTICUS SNOMED Code(s): 099816027 Comment: Continue keppra and vimpat-pt states she needs an Rx for vimpat sent. (3) DVT prophylaxis Current Visit: Yes Status: Acute Code(s): BHG0997 - SNOMED Code(s): 647239094 Comment: SQ heparin (4) Full code status Current Visit: Yes Status: Acute Code(s): Z78.9 - OTHER SPECIFIED HEALTH STATUS SNOMED Code(s): 403817322 Status and Disposition: discharge to [place]. Pt lacks capacity to refuse at this point
--- NOTE | 2016-08-01 07:41 | DS ---
DISCHARGE SUMMARY: DATE OF ADMISSION: 07/25/16 DATE OF DISCHARGE: 07/31/16 PRIMARY CARE PROVIDER: JASON, Internal Medicine. PRINCIPAL DIAGNOSES: 1. Seizure disorder. 2. Alcohol-induced mood disorder. 3. Anxiety. 4. Hypertension. 5. History of hepatitis C. 6. Tobacco use. 7. Alcoholism. DISCHARGE MEDICATIONS: 1. Multivitamin 1 tablet p.o. daily. 2. Ativan 0.5 mg p.o. b.i.d. p.r.n. anxiety. 3. Lidocaine patch apply topically q.12 hours. 4. Vimpat 50 mg p.o. q.a.m., 100 mg p.o. q.p.m. 5. Gabapentin 400 mg p.o. t.i.d. 6. Celexa 20 mg p.o. daily. 7. Keppra 750 mg p.o. t.i.d. 8. Hydroxyzine 50 mg p.o. q.6 hours p.r.n. anxiety. 9. Nicotine inhaler 10 mg inhale q.2 hours p.r.n. craving. 10. Nicotine patch apply topically daily. HOSPITAL COURSE: Ms. Jack is a 61-year-old female with the above-listed medical conditions, presents to the emergency room for a second time after she was taken to a residential and refused to get out of the car. The patient was admitted under half-way care. It was felt that the patient was no longer able to take care for herself at home. There is a question of her fur finisher seamstress kicking her out of his house. The patient was seen in consultation by Dr. Singh, who felt that the patient did not have medical-decision making capacity to make a discharge plan. The decision was made to try to place the patient in a mcc. Over the course of the next few days, the patient's mental status cleared. By 07/30/16, the patient was demanding to go home. Following up on 07/31/16, it was noted that the patient was the clearest she had been. [facility] had offered her a bed; however, in speaking with the patient's fur finisher seamstress, he is willing to let her come back home and is willing to help out with medications and try to keep her sober. The patient and her fur finisher seamstress are both willing to allow [facility] to come into the home. At this point, the patient has a safe discharge plan; however, continues and likely will continue to make poor decisions, though at this point, has a safe discharge plan, her lack of capacity does not come into play. FOLLOWUP CONCERNS: The patient is being discharged home today, 07/31/16. ACTIVITY LEVEL: As tolerated. DIET: Regular. CONDITION ON DISCHARGE: Stable. The patient is to follow up with her primary care provider in the next 4 to 7 days. TIME SPENT: Thirty-five minutes was spent discharging this patient. CC: [facility] Internal Medicine * [id number]/[facility] #: [id number] BRAIN
== END 2016-07-31 14:00 | disposition home health service (06) | DRG 101 ==
LOC: ED 17:25 → MED 17:35
PROVIDERS: ADMIT Internal Medicine; ATTEND Hospitalist
DX: G40.909 Epilepsy, unspecified, not intractable, without status epilepticus (principal); I10 Essential (primary) hypertension; F10.24 Alcohol dependence with alcohol-induced mood disorder; Z96.643 Presence of artificial hip joint, bilateral; G43.909 Migraine, unspecified, not intractable, without status migrainosus; F41.9 Anxiety disorder, unspecified; F32.9 Major depressive disorder, single episode, unspecified; F17.210 Nicotine dependence, cigarettes, uncomplicated; Y90.9 Presence of alcohol in blood, level not specified; B19.20 Unspecified viral hepatitis C without hepatic coma; F43.21 Adjustment disorder with depressed mood; E66.9 Obesity, unspecified; F11.10 Opioid abuse, uncomplicated; G89.29 Other chronic pain; S00.83XA Contusion of other part of head, initial encounter; S40.022A Contusion of left upper arm, initial encounter; S40.021A Contusion of right upper arm, initial encounter; S80.11XA Contusion of right lower leg, initial encounter; S80.12XA Contusion of left lower leg, initial encounter; W19.XXXA Unspecified fall, initial encounter; F09 Unspecified mental disorder due to known physiological condition; F15.10 Other stimulant abuse, uncomplicated; Z88.6 Allergy status to analgesic agent; Z86.73 Personal history of transient ischemic attack (TIA), and cerebral infarction without residual deficits; Z91.5 Personal history of self-harm; Z81.8 Family history of other mental and behavioral disorders; Z82.49 Family history of ischemic heart disease and other diseases of the circulatory system; Z81.1 Family history of alcohol abuse and dependence; Z91.041 Radiographic dye allergy status; Z68.22 Body mass index [BMI] 22.0-22.9, adult; Z91.14 Patient's other noncompliance with medication regimen; Z80.0 Family history of malignant neoplasm of digestive organs; Z80.42 Family history of malignant neoplasm of prostate; Y92.9 Unspecified place or not applicable
CPT/HCPCS: 36415; 70450; 80053; 80307; 80320; 81003; 81015; 82550; 83605; 83735; 85025; 85610; 99283; 99406; A9270-GY; G0480; J1644

== ENCOUNTER 2016-08-31 12:43 | Inpatient (IN) | payer MEDICARE, MEDICAID ==
[2016-08-31] MEDS ORDERED: NS 0.9% 1000 ML* 1,000 ML IV ONE (13:31)
[2016-08-31 13:47] LABS: Urine Bacteria Absent (Absent); Urine Bilirubin Negative (Negative); Urine Glucose 1+(50 mg/dL) (Negative); Urine Nitrite Negative (Negative)
[2016-08-31 14:00] LABS: Benzodiazepine Urine Screen None Detected (None Detect)
[2016-08-31 14:15] LABS: Hematocrit 40 % (35-47); Hemoglobin 13.1 g/dl (12.0-16.0); Mean Corpuscular HGB Conc 33 g/dl (31-36); Mean Corpuscular Hemoglobin 31 pg (27-31); Mean Corpuscular Volume 94 fL (80-97); Mean Platelet Volume 7 um3 (7.4-10.4); Red Blood Count 4.22 10^6/ul (4.0-5.4); Red Cell Distribution Width 15 % (10.5-15); White Blood Count 8.3 10^3/ul (3.5-10.8)
[2016-08-31 14:30] LABS: ALT 15 U/L (7-52); AST 32 U/L (13-39); Albumin 4.2 g/dL (3.2-5.2); Alkaline Phosphatase 57 U/L (34-104); Anion Gap 9 mmol/L (2-11); BUN/Creatinine Ratio 18.3 (8-20); Blood Urea Nitrogen 11 mg/dL (6-24); CO2 Carbon Dioxide 22 mmol/L (22-32); Calcium 9.1 mg/dL (8.6-10.3); Chloride 106 mmol/L (101-111); EGFR African American 131.1 (>60); Globulin 2.7 g/dL (2-4); Glucose 100 mg/dL (70-100); Magnesium 1.8 mg/dL (1.9-2.7); Potassium 3.6 mmol/L (3.5-5.0); Sodium 137 mmol/L (133-145); Total Protein 6.9 g/dL (6.4-8.9)
[2016-08-31] MEDS ORDERED: Gabapentin CAP(*) 300 MG PO ONE (14:34)
[2016-08-31] MEDS ORDERED: Acetaminophen TAB* 325 MG PO ONE (14:35)
[2016-08-31 14:36] LABS: Troponin I 0.36 ng/mL (<0.04)
[2016-08-31 14:54] LABS: Alcohol < 10 mg/dL (<10)
[2016-08-31 15:17] LABS: Troponin I 0.54 ng/mL (<0.04)
[2016-08-31] MEDS ORDERED: LORazepam INJ* 2 MG/ML 1 ML VIAL ONE (15:47)
[2016-08-31] MEDS ORDERED: LORazepam INJ* 2 MG/ML 1 ML VIAL IV PUSH ONE (15:48)
[2016-08-31] MEDS ORDERED: LaCOSAMide VIAL * 200 MG/20 ML VIAL IV ONE (16:07)
[2016-08-31] MEDS ORDERED: NS 0.9% IVPB ONE (16:30)
[2016-08-31] MEDS ORDERED: LACOSAMIDE IVPB ONE (16:30)
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
[2016-08-31] MEDS: Lacosamide TAB* 100 MG TAB PO SCH (20:40)
[2016-08-31] MEDS: levETIRAcetam TAB* 500 MG PO SCH (20:41)
[2016-08-31] MEDS: Ibuprofen TAB* 600 MG PO PRN (20:41)
[2016-08-31] MEDS: Heparin VIAL(*) 5000 UNITS/ML VIAL (FIVE THOUSAND) SUBCUT SCH (20:41)
[2016-08-31] MEDS: LORazepam TAB(*) 0.5 MG PO PRN (20:42)
[2016-08-31] MEDS ORDERED: levETIRAcetam TAB* 500 MG PO SCH (21:00)
[2016-09-01] MEDS ORDERED: Mouth Piece, Nicotine* 1 EACH CARTRIDGE ONE (05:38)
[2016-09-01] MEDS: Nicotine Inhaler* 10 MG AMP INH PRN ×4 (05:44→19:35)
[2016-09-01] MEDS: Ibuprofen TAB* 600 MG PO PRN ×3 (05:45→21:12)
[2016-09-01] MEDS: Heparin VIAL(*) 5000 UNITS/ML VIAL (FIVE THOUSAND) SUBCUT SCH ×3 (05:45→20:57)
[2016-09-01] MEDS: hydrOXYzine HCL TAB* 50 MG PO PRN ×3 (05:45→23:39)
--- NOTE | 2016-09-01 06:52 | HP ---
CC: Dr. Dean; Dr. Peters* HISTORY AND PHYSICAL: DATE OF ADMISSION: 08/31/16 PRIMARY CARE PHYSICIAN: Dr. Dean NEUROLOGIST: Dr. Peters CHIEF COMPLAINT: Seizure. HISTORY OF PRESENT ILLNESS: Ms. Jack is a 61-year-old female well known to the hospitalist service from multiple previous hospitalizations, who has a history of a seizure disorder as well as alcoholism, who presents to the emergency room with complaints of 2 to 3 seizures on the day of admission. The patient states that she awakened from sleep at approximately 9 a.m. on the morning of admission having severe pain in her right fingers and toes. The patient states that this is how her seizures are preceded. She describes this as a burning or pins and needles feeling in her fingers. She then proceeded to have a reported seizure. She describes the seizure as shaking of her arm and leg. The patient's boyfriend's son supposedly witnessed this seizure. The patient states that perhaps she had another 2 to 3 seizures at home. EMS was contacted and initially she refused to come to the ER; however, she was reportedly told that if she does not go to the ER, the police will be called. The patient states that she saw Dr. Peters a couple of weeks ago and he took her off her Keppra. He also took her off her Neurontin. The patient states that she has been drinking heavily over the last 2 weeks due to pain in her hip , but has not drank since this past . The patient states that she also ran out of her Vimpat a couple of days ago. The patient denies any chest pain, shortness of breath or dysuria. She does state that she was coughing some on the morning of admission and had some mild nausea. In reviewing Dr. Peters's outpatient record, he in fact wanted her to be tapered off her Keppra, but not stop it immediately. The patient was supposed to be taking Keppra 1 tablet twice daily for 1 month, then 1 tablet daily for 1 month. Additionally, the patient was supposed to increase her Vimpat up to 100 mg twice daily, which I do not believe the patient did. PAST MEDICAL HISTORY: 1. Seizure disorder. 2. Alcoholism. 3. History of hepatic encephalopathy. 4. Hypertension. 5. History of left occipital parietal CVA. 6. Anxiety/depression. 7. History of hepatitis C. 8. Tobacco abuse. MEDICATIONS: 1. Vimpat 100 mg p.o. b.i.d. (patient was not taking). 2. Meloxicam 7.5 mg p.o. b.i.d. p.r.n. pain. 3. Hydroxyzine 50 mg p.o. q.6 hours p.r.n. anxiety. 4. Celexa 20 mg p.o. daily. It is unclear if the patient was taking anything else. These were the pill bottles that she brought in. ALLERGIES: IODINE CONTRAST, KETOROLAC. FAMILY HISTORY: Positive for history of colon cancer, prostate cancer, and hypertension. SOCIAL HISTORY: The patient is smoking approximately one-half pack of cigarettes per day. She states that she drank heavily over the last 2 weeks, but nothing since this past . She smokes marijuana on occasion. She lives with her domestic partner, Antonio Gauthier. She is unable to choose a healthcare proxy at this time. REVIEW OF SYSTEMS: A complete 11-system review of systems was obtained. Pertinent positives and negatives are as per HPI and otherwise negative. PHYSICAL EXAMINATION GENERAL: The patient is a well-developed, middle-aged female, sitting in the stretcher in no acute distress. VITAL SIGNS: Blood pressure 121/83, pulse 96, respirations 23, temp 98.8, O2 sat 99% on room air. HEENT: Pupils are equal and round. They react to light. Extraocular muscles are intact. Oropharynx is clear. The patient wears upper dentures. There is no submandibular, cervical, or supraclavicular adenopathy. Thyroid is not enlarged. No thyroid nodules are noted. PULMONARY: Lungs are clear to auscultation bilaterally. CARDIAC: Normal S1, S2. Heart rate is mildly tachycardic. ABDOMEN: Bowel sounds are present. Abdomen is soft, nontender, nondistended. MUSCULOSKELETAL: There is no cyanosis or clubbing of the digits. There is full active range of motion of all four extremities. SKIN: Warm and dry. There are no rashes. The patient has dirt on her feet. NEURO: During my conversation with the patient, she began to complain of severe pain in her fingers and toes. This progressed to what appeared to be rhythmic shaking of the right upper and lower extremity, though the patient was still alert and screaming out in pain during this period of time. PSYCH: The patient is alert. She is oriented x3. Affect appears appropriate. LABORATORY DATA: WBC 8.3, hemoglobin 13.1, hematocrit 40, platelets 197. INR 0.92. Sodium 137, potassium 3.6, chloride 106, CO2 of 22, BUN 11, creatinine 0.60, glucose 100, lactic acid 1.7, calcium 9.1, magnesium 1.8, bilirubin 0.7, AST 32, ALT 15, alk phos 57, CPK pending, troponin 0.36 to 0.54, albumin is 4.2. Urinalysis reveals specific gravity of 1.012 and otherwise negative for signs of infection. Urine tox screen positive for marijuana. Alcohol level less than 10. EKG reveals normal sinus rhythm without any acute ST-T wave abnormalities. ASSESSMENT AND PLAN: Ms. Jack is a 61-year-old female with a history of seizure disorder, alcoholism, and anxiety/depression, who presents to the emergency room with complaints of 2 to 3 seizures on the day of admission. 1. Seizure. The patient complained of 2 to 3 seizures at home and had what appeared to be a possible partial seizure in the emergency room during my evaluation. The patient did receive 1 mg of IV Ativan at the time of her possible seizure in the ER. I suspect if these are true seizures, they are likely related to the patient not being on her Vimpat and abruptly stopping the Keppra that she had been taking. Additionally, she was drinking heavily up until this past and this could be an alcohol withdrawal seizure. I spoke with the neurologist on-call who recommended loading the patient with Vimpat 200 mg IV x1 and then resuming Vimpat 100 mg p.o. twice daily. Additionally, she was supposed to be tapering off the Keppra. It was recommended to start her back on Keppra 500 mg twice daily for 1 week, tapering to 250 mg twice daily for 1 week and then stopping the medication. In case this is an alcohol withdrawal seizure, the patient will be placed on the [place] protocol. I do not believe an EEG would be of any benefit at this time as her previous EEGs have identified an epileptic focus in the left frontotemporal region with some extension to the left parietal area. The patient will need to follow up with Dr. Peters as per this hospitalization for further management of her seizure disorder. 2. Alcoholism. At this time, the patient is not showing any signs of alcohol withdrawal; however, she will be placed on the [place] protocol given her past history. 3. Tobacco abuse. The patient will be started on nicotine patch. 4. Hypertension. The patient is not on any medication for this. At this point , we will monitor her blood pressure and start an antihypertensive if necessary. 5. Anxiety/depression. The patient will be continued on her usual doses of Celexa and hydroxyzine. 6. DVT prophylaxis. According to the Adult Thrombosis Prophylaxis Risk Factor Assessment Guide, the patient has a total risk factor score of 2, making her moderate risk. She will be placed on heparin 5000 units subcutaneous q. 8 hours. 7. Code status is full. Again at this time, the patient is unable to choose a healthcare proxy. TIME SPENT: Sixty five minutes was spent admitting this patient. [id number]/CPS #: [id number] BRAIN
[2016-09-01] MEDS: levETIRAcetam TAB* 500 MG PO SCH ×2 (08:45→19:34)
[2016-09-01] MEDS: Citalopram TAB* 20 MG PO SCH (08:45)
[2016-09-01] MEDS: Lacosamide TAB* 100 MG TAB PO SCH ×2 (08:45→19:35)
[2016-09-01] MEDS: LORazepam TAB(*) 0.5 MG PO PRN (09:18)
[2016-09-01] MEDS: Acetaminophen TAB* 325 MG PO PRN (11:49)
--- NOTE | 2016-09-01 13:24 | PN ---
Subjective Date of Service: 09/01/16 Interval History: Pt is feeling much better today. She states that she is still having some pain in her R hand but nothing like yesterday. She denies any withdrawal symptoms. No SOB or significant CP. She states she thinks she has some mild CP related to her anxiety. Objective Active Medications: Acetaminophen (Tylenol Tab*) 650 mg PO Q4H PRN PRN Reason: PAIN Last Admin: 09/01/16 11:49 Dose: 650 mg Citalopram Hydrobromide (Celexa Tab*) 20 mg PO DAILY [facility] Last Admin: 09/01/16 08:45 Dose: 20 mg Heparin Sodium (Porcine) (Heparin Vial(*)) 5,000 units SUBCUT Q8HR [facility] Last Admin: 09/01/16 12:59 Dose: 5,000 units Hydroxyzine HCl (Atarax Tab*) 50 mg PO Q6H PRN PRN Reason: ANXIETY Last Admin: 09/01/16 05:45 Dose: 50 mg Ibuprofen (Motrin Tab*) 600 mg PO Q8H PRN PRN Reason: PAIN Last Admin: 09/01/16 05:45 Dose: 600 mg Lacosamide (Vimpat Tab*) 100 mg PO BID [facility] Last Admin: 09/01/16 08:45 Dose: 100 mg Levetiracetam (Keppra Tab*) 500 mg PO BID [facility] Last Admin: 09/01/16 08:45 Dose: 500 mg Lorazepam (Ativan Tab(*)) 0 mg PO Q4H PRN; Protocol PRN Reason: ANXIETY Last Admin: 09/01/16 09:18 Dose: 1 mg Nicotine (Nicotine Inhaler*) 10 mg INH Q2H PRN PRN Reason: CRAVING Last Admin: 09/01/16 09:17 Dose: 10 mg Vital Signs 08/31/16 08/31/16 08/31/16 16:30 16:38 17:00 Temperature 98.3 F Pulse Rate 91 Respiratory 19 18 19 Rate Blood Pressure 121/84 110/92 115/100 (mmHg) O2 Sat by Pulse 98 Oximetry 08/31/16 08/31/16 08/31/16 17:01 17:07 18:01 Temperature 98.1 F Pulse Rate 98 Respiratory 18 18 18 Rate Blood Pressure 132/78 (mmHg) O2 Sat by Pulse Oximetry 08/31/16 08/31/16 08/31/16 19:09 20:00 20:42 Temperature 97.5 F Pulse Rate 93 Respiratory 16 16 16 Rate Blood Pressure 113/80 (mmHg) O2 Sat by Pulse 100 Oximetry 08/31/16 08/31/16 09/01/16 22:42 23:08 01:01 Temperature 98.5 F 97.7 F Pulse Rate 95 95 Respiratory 15 16 16 Rate Blood Pressure 120/96 116/84 (mmHg) O2 Sat by Pulse 98 99 Oximetry 09/01/16 09/01/16 09/01/16 03:02 04:00 05:03 Temperature 97.8 F 97.9 F Pulse Rate 95 85 Respiratory 20 20 20 Rate Blood Pressure 111/90 119/92 (mmHg) O2 Sat by Pulse 99 99 Oximetry 09/01/16 09/01/16 09/01/16 07:56 08:00 09:18 Temperature 98.0 F Pulse Rate 88 Respiratory 16 16 18 Rate Blood Pressure 124/97 (mmHg) O2 Sat by Pulse 99 Oximetry 09/01/16 09/01/16 11:18 11:40 Temperature 100.1 F Pulse Rate 91 Respiratory 16 16 Rate Blood Pressure 112/90 (mmHg) O2 Sat by Pulse 99 Oximetry Oxygen Devices in Use Now: None Appearance: Middle aged female sleeping in bed, awakened to voice, NAD Eyes: No Scleral Icterus Ears/Nose/Mouth/Throat: Mucous Membranes Moist Respiratory: Symmetrical Chest Expansion and Respiratory Effort, Clear to Auscultation Cardiovascular: NL Sounds; No Murmurs; No JVD, RRR, No Edema Abdominal: NL Sounds; No Tenderness; No Distention Extremities: No Clubbing, Cyanosis Skin: No Rash or Ulcers, No Nodules or Sclerosis Neurological: Alert and Oriented x 3 Result Diagrams: 08/31/16 14:00 08/31/16 14:00 Additional Lab and Data: Lab Results 08/31/16 08/31/16 08/31/16 Range/Units 13:00 13:00 14:00 WBC 8.3 (3.5-10.8) 10^3/ul RBC 4.22 (4.0-5.4) 10^6/ul Hgb 13.1 (12.0-16.0) g/dl Hct 40 (35-47) % MCV 94 (80-97) fL MCH 31 (27-31) pg MCHC 33 (31-36) g/dl RDW 15 (10.5-15) % Plt Count 197 (150-450) 10^3/ul MPV 7 L (7.4-10.4) um3 Neut % (Auto) 82.7 (38-83) % Lymph % (Auto) 10.2 L (25-47) % [place] % (Auto) 5.9 (1-9) % Eos % (Auto) 0.3 (0-6) % Baso % (Auto) 0.9 (0-2) % Absolute Neuts (auto) 6.8 (1.5-7.7) 10^3/ul Absolute Lymphs (auto) 0.8 L (1.0-4.8) 10^3/ul Absolute Monos (auto) 0.5 (0-0.8) 10^3/ul Absolute Eos (auto) 0 (0-0.6) 10^3/ul Absolute Basos (auto) 0.1 (0-0.2) 10^3/ul Absolute Nucleated RBC 0 10^3/ul Nucleated RBC % 0 INR (Anticoag Therapy) (0.89-1.11) Sodium (133-145) mmol/L Potassium (3.5-5.0) mmol/L Chloride (101-111) mmol/L Carbon Dioxide (22-32) mmol/L Anion Gap (2-11) mmol/L BUN (6-24) mg/dL Creatinine (0.51-0.95) mg/dL Est GFR ( Amer) (>60) Est GFR (Non-Af Amer) (>60) BUN/Creatinine Ratio (8-20) Glucose (70-100) mg/dL Lactic Acid (0.5-2.0) mmol/L Calcium (8.6-10.3) mg/dL Magnesium (1.9-2.7) mg/dL Total Bilirubin (0.2-1.0) mg/dL AST (13-39) U/L ALT (7-52) U/L Alkaline Phosphatase (34-104) U/L Total Creatine Kinase Troponin I (<0.04) ng/mL Total Protein (6.4-8.9) g/dL Albumin (3.2-5.2) g/dL Globulin (2-4) g/dL Albumin/Globulin Ratio (1-3) Urine Color Straw Urine Appearance Clear Urine pH 6.0 (5-9) Ur Specific [place] 1.012 (1.010-1.030) Urine Protein 2+(100 mg/dl) H (Negative) Urine Ketones Negative (Negative) Urine Blood Negative (Negative) Urine Nitrate Negative (Negative) Urine Bilirubin Negative (Negative) Urine Urobilinogen Negative (Negative) Ur Leukocyte Esterase Negative (Negative) Urine WBC (Auto) Trace(0-5/hpf) (Absent) Urine RBC (Auto) Absent (Absent) Urine Bacteria Absent (Absent) Urine Glucose 1+(50 mg/dl) H (Negative) Urine Opiates Screen None detected (None Detect) Ur Barbiturates Screen None detected (None Detect) Ur Phencyclidine Scrn None detected (None Detect) Ur Amphetamines Screen None detected (None Detect) U Benzodiazepines Scrn None detected (None Detect) Urine Cocaine Screen None detected (None Detect) U Cannabinoids Screen Presumptive positive H (None Detect) Serum Alcohol (<10) mg/dL 08/31/16 08/31/16 08/31/16 Range/Units 14:00 14:00 14:00 WBC (3.5-10.8) 10^3/ul RBC (4.0-5.4) 10^6/ul Hgb (12.0-16.0) g/dl Hct (35-47) % MCV (80-97) fL MCH (27-31) pg MCHC (31-36) g/dl RDW (10.5-15) % Plt Count (150-450) 10^3/ul MPV (7.4-10.4) um3 Neut % (Auto) (38-83) % Lymph % (Auto) (25-47) % [place] % (Auto) (1-9) % Eos % (Auto) (0-6) % Baso % (Auto) (0-2) % Absolute Neuts (auto) (1.5-7.7) 10^3/ul Absolute Lymphs (auto) (1.0-4.8) 10^3/ul Absolute Monos (auto) (0-0.8) 10^3/ul Absolute Eos (auto) (0-0.6) 10^3/ul Absolute Basos (auto) (0-0.2) 10^3/ul Absolute Nucleated RBC 10^3/ul Nucleated RBC % INR (Anticoag Therapy) 0.92 (0.89-1.11) Sodium 137 (133-145) mmol/L Potassium 3.6 (3.5-5.0) mmol/L Chloride 106 (101-111) mmol/L Carbon Dioxide 22 (22-32) mmol/L Anion Gap 9 (2-11) mmol/L BUN 11 (6-24) mg/dL Creatinine 0.60 (0.51-0.95) mg/dL Est GFR ( Amer) 131.1 (>60) Est GFR (Non-Af Amer) 102.0 (>60) BUN/Creatinine Ratio 18.3 (8-20) Glucose 100 (70-100) mg/dL Lactic Acid 1.7 (0.5-2.0) mmol/L Calcium 9.1 (8.6-10.3) mg/dL Magnesium 1.8 L (1.9-2.7) mg/dL Total Bilirubin 0.70 (0.2-1.0) mg/dL AST 32 (13-39) U/L ALT 15 (7-52) U/L Alkaline Phosphatase 57 (34-104) U/L Total Creatine Kinase Troponin I 0.36 H* (<0.04) ng/mL Total Protein 6.9 (6.4-8.9) g/dL Albumin 4.2 (3.2-5.2) g/dL Globulin 2.7 (2-4) g/dL Albumin/Globulin Ratio 1.6 (1-3) Urine Color Urine Appearance Urine pH (5-9) Ur Specific [place] (1.010-1.030) Urine Protein (Negative) Urine Ketones (Negative) Urine Blood (Negative) Urine Nitrate (Negative) Urine Bilirubin (Negative) Urine Urobilinogen (Negative) Ur Leukocyte Esterase (Negative) Urine WBC (Auto) (Absent) Urine RBC (Auto) (Absent) Urine Bacteria (Absent) Urine Glucose (Negative) Urine Opiates Screen (None Detect) Ur Barbiturates Screen (None Detect) Ur Phencyclidine Scrn (None Detect) Ur Amphetamines Screen (None Detect) U Benzodiazepines Scrn (None Detect) Urine Cocaine Screen (None Detect) U Cannabinoids Screen (None Detect) Serum Alcohol < 10 (<10) mg/dL 08/31/16 Range/Units 14:52 WBC (3.5-10.8) 10^3/ul RBC (4.0-5.4) 10^6/ul Hgb (12.0-16.0) g/dl Hct (35-47) % MCV (80-97) fL MCH (27-31) pg MCHC (31-36) g/dl RDW (10.5-15) % Plt Count (150-450) 10^3/ul MPV (7.4-10.4) um3 Neut % (Auto) (38-83) % Lymph % (Auto) (25-47) % [place] % (Auto) (1-9) % Eos % (Auto) (0-6) % Baso % (Auto) (0-2) % Absolute Neuts (auto) (1.5-7.7) 10^3/ul Absolute Lymphs (auto) (1.0-4.8) 10^3/ul Absolute Monos (auto) (0-0.8) 10^3/ul Absolute Eos (auto) (0-0.6) 10^3/ul Absolute Basos (auto) (0-0.2) 10^3/ul Absolute Nucleated RBC 10^3/ul Nucleated RBC % INR (Anticoag Therapy) (0.89-1.11) Sodium (133-145) mmol/L Potassium (3.5-5.0) mmol/L Chloride (101-111) mmol/L Carbon Dioxide (22-32) mmol/L Anion Gap (2-11) mmol/L BUN (6-24) mg/dL Creatinine (0.51-0.95) mg/dL Est GFR ( Amer) (>60) Est GFR (Non-Af Amer) (>60) BUN/Creatinine Ratio (8-20) Glucose (70-100) mg/dL Lactic Acid (0.5-2.0) mmol/L Calcium (8.6-10.3) mg/dL Magnesium (1.9-2.7) mg/dL Total Bilirubin (0.2-1.0) mg/dL AST (13-39) U/L ALT (7-52) U/L Alkaline Phosphatase (34-104) U/L Total Creatine Kinase Pending Troponin I 0.54 H* (<0.04) ng/mL Total Protein (6.4-8.9) g/dL Albumin (3.2-5.2) g/dL Globulin (2-4) g/dL Albumin/Globulin Ratio (1-3) Urine Color Urine Appearance Urine pH (5-9) Ur Specific [place] (1.010-1.030) Urine Protein (Negative) Urine Ketones (Negative) Urine Blood (Negative) Urine Nitrate (Negative) Urine Bilirubin (Negative) Urine Urobilinogen (Negative) Ur Leukocyte Esterase (Negative) Urine WBC (Auto) (Absent) Urine RBC (Auto) (Absent) Urine Bacteria (Absent) Urine Glucose (Negative) Urine Opiates Screen (None Detect) Ur Barbiturates Screen (None Detect) Ur Phencyclidine Scrn (None Detect) Ur Amphetamines Screen (None Detect) U Benzodiazepines Scrn (None Detect) Urine Cocaine Screen (None Detect) U Cannabinoids Screen (None Detect) Serum Alcohol (<10) mg/dL Assess/Plan/Problems-Billing Ms Jack is a 61 yo F with a h/o seizure disorder, alcoholism, tobacco abuse and depression/anxiety who presented to the ER with c/o seizure. - Patient Problems (1) Seizure disorder Current Visit: No Status: Acute Onset Date: 12/22/14 Code(s): G40.909 - EPILEPSY, UNSP, NOT INTRACTABLE, WITHOUT STATUS EPILEPTICUS SNOMED Code(s): 292171702 Comment: The patient states that she was told to stop her keppra when in fact she was told to taper it off. Additionally she ran out of her vimpat and did not call to get this refilled. It is possible she had seizures related to being off her antiepileptic however I am also concerned the seizures could be from EtOH withdrawal. She has been restarted on keppra and vimpat and is ready for d/c home from this standpoint however will be monitored overnight again due to her elevated troponin. (2) Elevated troponin Current Visit: Yes Status: Acute Code(s): R74.8 - ABNORMAL LEVELS OF OTHER SERUM ENZYMES SNOMED Code(s): 052445601 Comment: Unclear why the troponin is elevated as the patient was not c/o any chest pain. Her CPK was not elevated. Troponin has peaked-? demand ischemia. Will get stress test tomorrow. (3) Alcohol abuse Current Visit: Yes Status: Chronic Code(s): F10.10 - ALCOHOL ABUSE, UNCOMPLICATED SNOMED Code(s): 08136724 Comment: Pt continues to be monitored on the [facility] protocol as she was drinking heavily over the last couple weeks. (4) Tobacco abuse Current Visit: Yes Status: Acute Code(s): Z72.0 - TOBACCO USE SNOMED Code( s): 984708045 Comment: Continue nicotine inhaler. (5) HTN (hypertension) Current Visit: Yes Status: Chronic Code(s): I10 - ESSENTIAL (PRIMARY) HYPERTENSION SNOMED Code(s): 34893347 Comment: BP is controlled off all medications. (6) Anxiety Current Visit: Yes Status: Chronic Code(s): F41.9 - ANXIETY DISORDER, UNSPECIFIED SNOMED Code(s): 02644458 Comment: Continue celexa and atarax. (7) DVT prophylaxis Current Visit: Yes Status: Acute Code(s): QCZ1959 - SNOMED Code(s): 636755958 Comment: SQ heparin (8) Full code status Current Visit: Yes Status: Acute Code(s): Z78.9 - OTHER SPECIFIED HEALTH STATUS SNOMED Code(s): 228544781
[2016-09-02] MEDS: LORazepam TAB(*) 0.5 MG PO PRN ×2 (04:07→10:59)
[2016-09-02] MEDS: Acetaminophen TAB* 325 MG PO PRN (04:09)
[2016-09-02] MEDS: Heparin VIAL(*) 5000 UNITS/ML VIAL (FIVE THOUSAND) SUBCUT SCH (05:43)
[2016-09-02] MEDS: levETIRAcetam TAB* 500 MG PO SCH (08:32)
[2016-09-02] MEDS: Citalopram TAB* 20 MG PO SCH (08:32)
[2016-09-02] MEDS: Lacosamide TAB* 100 MG TAB PO SCH (08:32)
[2016-09-02] MEDS: hydrOXYzine HCL TAB* 50 MG PO PRN (09:14)
[2016-09-02] MEDS: Nicotine Inhaler* 10 MG AMP INH PRN (09:14)
--- NOTE | 2016-09-02 09:47 | PN ---
Subjective Date of Service: 09/02/16 Interval History: No c/o. Never had chest pain. Anxious to go home. Objective Active Medications: Acetaminophen (Tylenol Tab*) 650 mg PO Q4H PRN PRN Reason: PAIN Last Admin: 09/02/16 04:09 Dose: 650 mg Citalopram Hydrobromide (Celexa Tab*) 20 mg PO DAILY [facility] Last Admin: 09/02/16 08:32 Dose: 20 mg Heparin Sodium (Porcine) (Heparin Vial(*)) 5,000 units SUBCUT Q8HR [facility] Last Admin: 09/02/16 05:43 Dose: 5,000 units Hydroxyzine HCl (Atarax Tab*) 50 mg PO Q6H PRN PRN Reason: ANXIETY Last Admin: 09/02/16 09:14 Dose: 50 mg Ibuprofen (Motrin Tab*) 600 mg PO Q8H PRN PRN Reason: PAIN Last Admin: 09/01/16 21:12 Dose: 600 mg Lacosamide (Vimpat Tab*) 100 mg PO BID [facility] Last Admin: 09/02/16 08:32 Dose: 100 mg Levetiracetam (Keppra Tab*) 500 mg PO BID [facility] Last Admin: 09/02/16 08:32 Dose: 500 mg Lorazepam (Ativan Tab(*)) 0 mg PO Q4H PRN; Protocol PRN Reason: ANXIETY Last Admin: 09/02/16 04:07 Dose: 1 mg Nicotine (Nicotine Inhaler*) 10 mg INH Q2H PRN PRN Reason: CRAVING Last Admin: 09/02/16 09:14 Dose: 10 mg Vital Signs 09/01/16 09/01/16 09/01/16 11:18 11:40 15:26 Temperature 100.1 F 98.5 F Pulse Rate 91 95 Respiratory 16 16 16 Rate Blood Pressure 112/90 116/75 (mmHg) O2 Sat by Pulse 99 98 Oximetry 09/01/16 09/01/16 09/01/16 17:15 17:46 19:37 Temperature 98.6 F 98.1 F Pulse Rate 96 102 102 Respiratory 16 16 Rate Blood Pressure 139/101 135/96 131/94 (mmHg) O2 Sat by Pulse 100 99 Oximetry 09/01/16 09/02/16 09/02/16 20:00 01:03 03:59 Temperature 97.7 F Pulse Rate 90 Respiratory 18 18 18 Rate Blood Pressure 107/79 (mmHg) O2 Sat by Pulse 99 Oximetry 09/02/16 09/02/16 09/02/16 04:00 04:07 05:43 Temperature 97.6 F Pulse Rate 102 Respiratory 20 18 19 Rate Blood Pressure 125/98 (mmHg) O2 Sat by Pulse 98 Oximetry 09/02/16 07:36 Temperature 97.8 F Pulse Rate 84 Respiratory 16 Rate Blood Pressure 125/98 (mmHg) O2 Sat by Pulse 100 Oximetry Oxygen Devices in Use Now: None Appearance: Alert, sitting up in bed. In good spirits, looks comfortable. Eyes: No Scleral Icterus Neck: NL Appearance and Movements; NL JVP, No Thyroid Enlargement, Masses Respiratory: Symmetrical Chest Expansion and Respiratory Effort, Clear to Auscultation, Clear to Percussion Cardiovascular: NL Sounds; No Murmurs; No JVD, RRR, No Edema, - Extremities: No Edema, No Clubbing, Cyanosis, - Skin: No Rash or Ulcers, No Nodules or Sclerosis, - Neurological: Alert and Oriented x 3, NL Sensation Result Diagrams: 08/31/16 14:00 08/31/16 14:00 Additional Lab and Data: Lab Results 08/31/16 08/31/16 08/31/16 Range/Units 13:00 13:00 14:00 WBC 8.3 (3.5-10.8) 10^3/ul RBC 4.22 (4.0-5.4) 10^6/ul Hgb 13.1 (12.0-16.0) g/dl Hct 40 (35-47) % MCV 94 (80-97) fL MCH 31 (27-31) pg MCHC 33 (31-36) g/dl RDW 15 (10.5-15) % Plt Count 197 (150-450) 10^3/ul MPV 7 L (7.4-10.4) um3 Neut % (Auto) 82.7 (38-83) % Lymph % (Auto) 10.2 L (25-47) % [place] % (Auto) 5.9 (1-9) % Eos % (Auto) 0.3 (0-6) % Baso % (Auto) 0.9 (0-2) % Absolute Neuts (auto) 6.8 (1.5-7.7) 10^3/ul Absolute Lymphs (auto) 0.8 L (1.0-4.8) 10^3/ul Absolute Monos (auto) 0.5 (0-0.8) 10^3/ul Absolute Eos (auto) 0 (0-0.6) 10^3/ul Absolute Basos (auto) 0.1 (0-0.2) 10^3/ul Absolute Nucleated RBC 0 10^3/ul Nucleated RBC % 0 INR (Anticoag Therapy) (0.89-1.11) Sodium (133-145) mmol/L Potassium (3.5-5.0) mmol/L Chloride (101-111) mmol/L Carbon Dioxide (22-32) mmol/L Anion Gap (2-11) mmol/L BUN (6-24) mg/dL Creatinine (0.51-0.95) mg/dL Est GFR ( Amer) (>60) Est GFR (Non-Af Amer) (>60) BUN/Creatinine Ratio (8-20) Glucose (70-100) mg/dL Lactic Acid (0.5-2.0) mmol/L Calcium (8.6-10.3) mg/dL Magnesium (1.9-2.7) mg/dL Total Bilirubin (0.2-1.0) mg/dL AST (13-39) U/L ALT (7-52) U/L Alkaline Phosphatase (34-104) U/L Total Creatine Kinase Troponin I (<0.04) ng/mL Total Protein (6.4-8.9) g/dL Albumin (3.2-5.2) g/dL Globulin (2-4) g/dL Albumin/Globulin Ratio (1-3) Urine Color Straw Urine Appearance Clear Urine pH 6.0 (5-9) Ur Specific [place] 1.012 (1.010-1.030) Urine Protein 2+(100 mg/dl) H (Negative) Urine Ketones Negative (Negative) Urine Blood Negative (Negative) Urine Nitrate Negative (Negative) Urine Bilirubin Negative (Negative) Urine Urobilinogen Negative (Negative) Ur Leukocyte Esterase Negative (Negative) Urine WBC (Auto) Trace(0-5/hpf) (Absent) Urine RBC (Auto) Absent (Absent) Urine Bacteria Absent (Absent) Urine Glucose 1+(50 mg/dl) H (Negative) Urine Opiates Screen None detected (None Detect) Ur Barbiturates Screen None detected (None Detect) Ur Phencyclidine Scrn None detected (None Detect) Ur Amphetamines Screen None detected (None Detect) U Benzodiazepines Scrn None detected (None Detect) Urine Cocaine Screen None detected (None Detect) U Cannabinoids Screen Presumptive positive H (None Detect) Serum Alcohol (<10) mg/dL 08/31/16 08/31/16 08/31/16 Range/Units 14:00 14:00 14:00 WBC (3.5-10.8) 10^3/ul RBC (4.0-5.4) 10^6/ul Hgb (12.0-16.0) g/dl Hct (35-47) % MCV (80-97) fL MCH (27-31) pg MCHC (31-36) g/dl RDW (10.5-15) % Plt Count (150-450) 10^3/ul MPV (7.4-10.4) um3 Neut % (Auto) (38-83) % Lymph % (Auto) (25-47) % [place] % (Auto) (1-9) % Eos % (Auto) (0-6) % Baso % (Auto) (0-2) % Absolute Neuts (auto) (1.5-7.7) 10^3/ul Absolute Lymphs (auto) (1.0-4.8) 10^3/ul Absolute Monos (auto) (0-0.8) 10^3/ul Absolute Eos (auto) (0-0.6) 10^3/ul Absolute Basos (auto) (0-0.2) 10^3/ul Absolute Nucleated RBC 10^3/ul Nucleated RBC % INR (Anticoag Therapy) 0.92 (0.89-1.11) Sodium 137 (133-145) mmol/L Potassium 3.6 (3.5-5.0) mmol/L Chloride 106 (101-111) mmol/L Carbon Dioxide 22 (22-32) mmol/L Anion Gap 9 (2-11) mmol/L BUN 11 (6-24) mg/dL Creatinine 0.60 (0.51-0.95) mg/dL Est GFR ( Amer) 131.1 (>60) Est GFR (Non-Af Amer) 102.0 (>60) BUN/Creatinine Ratio 18.3 (8-20) Glucose 100 (70-100) mg/dL Lactic Acid 1.7 (0.5-2.0) mmol/L Calcium 9.1 (8.6-10.3) mg/dL Magnesium 1.8 L (1.9-2.7) mg/dL Total Bilirubin 0.70 (0.2-1.0) mg/dL AST 32 (13-39) U/L ALT 15 (7-52) U/L Alkaline Phosphatase 57 (34-104) U/L Total Creatine Kinase Troponin I 0.36 H* (<0.04) ng/mL Total Protein 6.9 (6.4-8.9) g/dL Albumin 4.2 (3.2-5.2) g/dL Globulin 2.7 (2-4) g/dL Albumin/Globulin Ratio 1.6 (1-3) Urine Color Urine Appearance Urine pH (5-9) Ur Specific [place] (1.010-1.030) Urine Protein (Negative) Urine Ketones (Negative) Urine Blood (Negative) Urine Nitrate (Negative) Urine Bilirubin (Negative) Urine Urobilinogen (Negative) Ur Leukocyte Esterase (Negative) Urine WBC (Auto) (Absent) Urine RBC (Auto) (Absent) Urine Bacteria (Absent) Urine Glucose (Negative) Urine Opiates Screen (None Detect) Ur Barbiturates Screen (None Detect) Ur Phencyclidine Scrn (None Detect) Ur Amphetamines Screen (None Detect) U Benzodiazepines Scrn (None Detect) Urine Cocaine Screen (None Detect) U Cannabinoids Screen (None Detect) Serum Alcohol < 10 (<10) mg/dL 08/31/16 Range/Units 14:52 WBC (3.5-10.8) 10^3/ul RBC (4.0-5.4) 10^6/ul Hgb (12.0-16.0) g/dl Hct (35-47) % MCV (80-97) fL MCH (27-31) pg MCHC (31-36) g/dl RDW (10.5-15) % Plt Count (150-450) 10^3/ul MPV (7.4-10.4) um3 Neut % (Auto) (38-83) % Lymph % (Auto) (25-47) % [place] % (Auto) (1-9) % Eos % (Auto) (0-6) % Baso % (Auto) (0-2) % Absolute Neuts (auto) (1.5-7.7) 10^3/ul Absolute Lymphs (auto) (1.0-4.8) 10^3/ul Absolute Monos (auto) (0-0.8) 10^3/ul Absolute Eos (auto) (0-0.6) 10^3/ul Absolute Basos (auto) (0-0.2) 10^3/ul Absolute Nucleated RBC 10^3/ul Nucleated RBC % INR (Anticoag Therapy) (0.89-1.11) Sodium (133-145) mmol/L Potassium (3.5-5.0) mmol/L Chloride (101-111) mmol/L Carbon Dioxide (22-32) mmol/L Anion Gap (2-11) mmol/L BUN (6-24) mg/dL Creatinine (0.51-0.95) mg/dL Est GFR ( Amer) (>60) Est GFR (Non-Af Amer) (>60) BUN/Creatinine Ratio (8-20) Glucose (70-100) mg/dL Lactic Acid (0.5-2.0) mmol/L Calcium (8.6-10.3) mg/dL Magnesium (1.9-2.7) mg/dL Total Bilirubin (0.2-1.0) mg/dL AST (13-39) U/L ALT (7-52) U/L Alkaline Phosphatase (34-104) U/L Total Creatine Kinase Pending Troponin I 0.54 H* (<0.04) ng/mL Total Protein (6.4-8.9) g/dL Albumin (3.2-5.2) g/dL Globulin (2-4) g/dL Albumin/Globulin Ratio (1-3) Urine Color Urine Appearance Urine pH (5-9) Ur Specific [place] (1.010-1.030) Urine Protein (Negative) Urine Ketones (Negative) Urine Blood (Negative) Urine Nitrate (Negative) Urine Bilirubin (Negative) Urine Urobilinogen (Negative) Ur Leukocyte Esterase (Negative) Urine WBC (Auto) (Absent) Urine RBC (Auto) (Absent) Urine Bacteria (Absent) Urine Glucose (Negative) Urine Opiates Screen (None Detect) Ur Barbiturates Screen (None Detect) Ur Phencyclidine Scrn (None Detect) Ur Amphetamines Screen (None Detect) U Benzodiazepines Scrn (None Detect) Urine Cocaine Screen (None Detect) U Cannabinoids Screen (None Detect) Serum Alcohol (<10) mg/dL Assess/Plan/Problems-Billing Ms Jack is a 61 yo F with a h/o seizure disorder, alcoholism, tobacco abuse and depression/anxiety who presented to the ER with c/o seizure. - Patient Problems (1) Elevated troponin Current Visit: Yes Status: Acute Code(s): R74.8 - ABNORMAL LEVELS OF OTHER SERUM ENZYMES SNOMED Code(s): 448699097 Comment: Unclear why the troponin is elevated as the patient was not c/o any chest pain. Her CPK was not elevated. ? demand ischemia. Will get echo, could have stress test as outpt when has adequate level anti-seizure meds in her. 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 Peters. (3) Tobacco abuse Current Visit: Yes Status: Acute Code(s): Z72.0 - TOBACCO USE SNOMED Code( s): 403494182 Comment: Pt advised to quit smoking and avoid second hand smoke. (4) Osteoporosis Current Visit: Yes Status: Acute Code(s): M81.0 - AGE-RELATED OSTEOPOROSIS W /O CURRENT PATHOLOGICAL FRACTURE SNOMED Code(s): 27487796 Comment: Hx multiple fractures. Smoker. Start vitamin D3. (5) Anxiety Current Visit: Yes Status: Chronic Code(s): F41.9 - ANXIETY DISORDER, UNSPECIFIED SNOMED Code(s): 84801376 Comment: Continue celexa and atarax. Status and Disposition: Patient indicates she will sign out AMA. Rx for lacosamide and metoprolol transmitted. Discussed with Dr. Ding.
[2016-09-02 10:27] VITALS: BP 127/98
--- NOTE | 2016-09-02 11:23 | ECHO ---
Patient: LINDY SORIANO [facility] Rec#: [id number] : 1955 Date: 09/02/2016 Age: 61y Height: 165.1 cm / 65.0 in Weight: 54.43 kg / 120.0 lbs Sex: F BSA: 1.59 Room#: 438 Admit Date#: 08/31/2016 Type: Inpatient Referring: Campbell Brown MD Reading: Jarod Ding MD Flatwork Catcher: Lindy Salinas LONNIE CC: Chris Dean MD Transthoracic Echocardiogram Indication: Elevated Troponin BP: 125/98 HR: 88 Rhythm: NSR Findings History: Seizures,ETOH abuse,hepatic encephalopathy,HTN,CVA,anxiety-depressionmHep C+,smoker. Technical Comments: The study is technically limited due to poor parasternal windows. Completed at 1115. Left Ventricle: The left ventricular chamber size is normal. There is a focal wall motion abnormality present. There is mildly decreased left ventricular systolic function. The estimated ejection fraction is 45-50%. Abnormal left ventricular diastolic function is observed. The mid anteroseptal, apical septal, and apical anterior wall segments are hypokinetic (score 2). Overall wallmotion score index is 2.00 Left Atrium: The left atrial chamber size is normal. Right Ventricle: The right ventricular cavity size is normal. The right ventricular global systolic function is normal. Right Atrium: The right atrial cavity size is normal. A prominent chiari network is noted in the right atrium. Aortic Valve: The aortic valve is trileaflet. There is no evidence of aortic regurgitation. There is no evidence of aortic stenosis. Mitral Valve: The mitral valve leaflets appear normal. There is mild mitral regurgitation. There is no evidence of mitral stenosis. Tricuspid Valve: The tricuspid valve leaflets are normal. There is mild to moderate tricuspid regurgitation. No pulmonary hypertension is noted. There is no tricuspid stenosis. Pulmonic Valve: The pulmonic valve appears normal. There is no evidence of pulmonic regurgitation. There is no pulmonic stenosis. Pericardium: The pericardium appears normal. Aorta: There is mild dilatation of the ascending aorta. There is no dilatation of the aortic arch. There is no dilation of the aortic root. Pulmonary Artery: The main pulmonary artery appears normal. Venous: The inferior vena cava appears normal in size. There is a greater than 50% respiratory change in the inferior vena cava dimension. Conclusions There is mildly decreased left ventricular systolic function. The mid anteroseptal, apical septal, and apical anterior wall segments are hypokinetic (score 2). The right ventricular global systolic function is normal. There is no evidence of aortic stenosis. There is mild mitral regurgitation. There is mild to moderate tricuspid regurgitation. No pulmonary hypertension is noted. The pericardium appears normal. Compared to study of 07/11/14, the anteroseptal wall motion abnormalitiy is new Measurements Name Value Normal Range RVIDd (AP) 2D 3.2 cm (0.9 - 2.6) RVDdMajor (2D) 3 cm (2.2 - 4.4) RAd ISD 4CH 4.3 cm (3.4 - 4.9) RA (A4C)W 3.4 cm (2.9 - 4.6) IVSd (2D) 0.6 cm (0.6 - 1) LVPWd (2D) 0.8 cm (0.6 - 1) LVIDd (2D) 4.3 cm (3.6 - 5.4) LVIDs (2D) 1.8 cm - LV FS (2D) 57 % (25 - 45) Aortic Annulus 1.8 cm (1.4 - 2.6) Ao root diameter (2D) 3.1 cm (2.1 - 3.5) Ascending Ao 3.6 cm (2.1 - 3.4) Aortic arch 2.8 cm (1.8 - 3.4) Descending Ao 0.4 cm - LA dimension (AP) 2D 3.1 cm (2.3 - 3.8) LAd ISD 4CH 4.6 cm (2.9 - 5.3) LA ISD 4CH W 3.7 cm (2.5 - 4.5) Name Value Normal Range LA ESV SP 4CH (A/L) 37 ml - LA ESV SP 2CH (A/L) 67 ml - LA ESV BP (A/L) 57 ml - LA ESV BP (A/L) index 35.69 ml/m2 - LA ESV SP 4CH (MOD) 33 ml - LA ESV SP 2CH (MOD) 65 ml - Name Value Normal Range MV E-wave Vmax 0.8 m/sec - MV deceleration time 139 msec - MV A-wave Vmax 0.6 m/sec - MV E:A ratio 1.46 ratio - LV septal e' Vmax 0.09 m/sec - LV lateral e' Vmax 0.07 m/sec - LV E:e' septal ratio 8.89 ratio - LV E:e' lateral ratio 11.42 ratio - Name Value Normal Range AV Vmax 1.4 m/sec - AV VTI 27.8 cm - AV peak gradient 7.64 mmHg - AV mean gradient 4.24 mmHg - LVOT Vmax 1 m/sec - LVOT VTI 20.4 cm - LVOT peak gradient 3.61 mmHg - LVOT mean gradient 1.85 mmHg - Name Value Normal Range TR Vmax 2.4 m/sec - TR peak gradient 23 mmHg - RAP 3 mmHg - RVSP 26 mmHg - IVC diameter 1.4 cm - Name Value Normal Range PV Vmax 0.7 m/sec - PV peak gradient 1.94 mmHg - Wallmotion BAS Not Seen BA Not Seen BAL Not Seen SHWETA Not Seen BI Not Seen BIS Not Seen MAS Hypokinetic MA Not Seen MAL Not Seen MIL Not Seen MO Not Seen MIS Not Seen Hypokinetic AA Hypokinetic AL Not Seen AI Not Seen APEX Hypokinetic
--- NOTE | 2016-09-02 12:24 | PN ---
Progress Note - Progress Note Date of Service: 09/02/16 Note: Time spent on discharge 45 minutes.
[2016-09-02] MEDS ORDERED: Metoprolol Tartrate TAB* 25 MG PO SCH (12:30)
[2016-09-02] MEDS ORDERED: Aspirin Low Dose CHEW TAB* 81 MG PO SCH (13:00)
--- NOTE | 2016-09-02 21:27 | CONS ---
CC: Chris Dean MD; Anant Peters MD * CARDIOLOGY CONSULTATION: DATE OF CONSULT: 09/02/16 INDICATION FOR CONSULT: Chest pain, abnormal troponin. HISTORY OF PRESENT ILLNESS: The patient is a 61-year-old female with a history of smoking, history of hypertension, history of CVA in the past, who is admitted to the hospital with a supposed seizure. The patient reports that she does have a seizure disorder; however, Dr. Peters is not convinced that she needs to take medications for her seizure. The patient was brought to the emergency room by ambulance on 08/31/16, because of supposed seizure, she reports as feeling funny in her leg and radiates all over to her chest and into her jaw. She also described episodes of chest pain. The patient is not very confident in her symptoms. The patient was admitted to the hospital. On evaluation, she was noted to have elevated troponin levels. The patient had an echocardiogram today, which showed a new wall motion abnormality to her anterior apical wall. In speaking with the patient today, she has not had any further seizures or chest pain since being in the hospital. PAST MEDICAL HISTORY: Significant for: 1. Alcoholism. 2. Seizure disorder. 3. Hepatic encephalopathy. 4. Hypertension. 5. CVA. 6. Anxiety and depression. 7. Tobacco abuse. OUTPATIENT MEDICATIONS: 1. Vimpat 100 mg b.i.d. 2. Meloxicam 7.5 mg a day. 3. Celexa. 4. She was on Keppra at some point. ALLERGIES: To IODINE CONTRAST, KETOROLAC. FAMILY HISTORY: Positive for colon cancer and prostate cancer. SOCIAL HISTORY: She is a long-term smoker. She smokes half a pack of cigarettes a day. She has a long history of heavy drinking. She reports no drinking since last . PHYSICAL EXAM: Height is 5 feet 5 inches, weight is 115 pounds. Temperature is 97.4, heart rate is 90, respiratory rate is 20, blood pressure 127/98, oxygen saturation is 98% on room air. Sclerae anicteric. Oropharynx is pink without erythema. Carotids are 2+ without bruits. JVD is normal. Thyroid is normal. Cardiac Exam: S1, S2 without any murmurs, rubs, or gallops. Lungs: Clear to auscultation. There is a slight decrease in breath sounds. There are no rhonchi or wheezes. There is no dullness to percussion. Abdomen: Soft, nontender, nondistended with normoactive bowel sounds. Extremities: Show no edema. She has 2+ pulses throughout. The patient is awake, alert, and oriented. She moves all 4 extremities equally. DIAGNOSTIC STUDIES/LAB DATA: CBC is within normal limits. Chemistries within normal limits. AST and ALT are within normal limits. Initial troponin level of 0.36, maximum troponin level of 0.88. EKG demonstrates normal sinus rhythm with normal axis and intervals. No ischemic EKG changes. IMPRESSION AND PLAN: This is a 61-year-old female with a history of tobacco use , who is admitted to the hospital with supposed seizures. Again, there is some question as to whether she has true seizure disorder. She is followed by Dr. Peters. The patient's initial troponin level was elevated and peaked at 0.88. An echocardiogram today demonstrated a new wall motion abnormality to her distal anterior wall and apex. I am concerned that the patient has an acute coronary syndrome. The patient also may be presenting with Takotsubo's or broken heart syndrome. It is my recommendation the patient undergo cardiac catheterization for a definitive evaluation. The patient has declined to undergo cardiac catheterization today. The patient elected to sign out against medical advice. She was discharged from the hospital before I could talk to her about steroid agents before doing a cardiac catheterization. The patient did inform me that she would like to do a cardiac catheterization next 09/09/16. I will try to arrange this as an outpatient. Again the patient will need steroids before her cardiac catheterization. This was discussed in detail with Dr. Brown. [id number]/[facility] #: [id number] BRAIN
--- NOTE | 2016-09-03 05:08 | DS ---
CC: Dr. Joleen Gauthier; Dr. Peters DISCHARGE SUMMARY: DATE OF ADMISSION: DATE OF DISCHARGE: 09/02/16 HISTORY: This 61-year-old woman presented after a seizure. She reportedly had 2 to 3 seizures on t he day of admission. She often has a prodrome of pain in her right toes and right fingers, which sp reads up and then she often has a seizure. When EMS came in, she initially refused to come to the ER , but she was threatened with having the police called and apparently did allow EMS to bring her to the emergency room. The patient states she ran out of her lacosamide about 2 days before admission and did not get any m ore. There was also some confusion about tapering off her levetiracetam that she stopped completely instead of tapering it. In the emergency room, I note she had a normal CO2. Her troponin, however, was measured and found t o be 0.36. It ben as high as 0.88 and then fell to 0.52. She was placed on telemetry. She had an echocardiogram on the day of discharge, which showed an anterior wall motion abnormality. I do not think she has ever had a prior echocardiogram. Dr. Ding saw her in consultation and recommended she stay in the hospital and have a cardiac cathet erization. The patient signed out against medical advice. I started her on aspirin and metoprolol. I also phoned in a prescription for more lacosamide for her. She was started on vitamin D3 as wel l as she has had several fractures and is a smoker and almost certainly has osteoporosis. FINAL DIAGNOSES: 1. Probable acute coronary syndrome. 2. Seizure disorder. 3. Tobacco abuse. 4. Osteoporosis. 5. Anxiety. 6. History of alcoholism. MEDICATIONS ON DISCHARGE: 1. Aspirin 81 mg daily. 2. Vitamin D3 1000 units daily. 3. Lacosamide 100 mg b.i.d. 4. Metoprolol 12.5 mg b.i.d. 5. Levetiracetam 500 mg b.i.d. 6. Hydroxyzine 50 mg every 6 hours p.r.n. 7. Citalopram 20 mg daily. 8. Meloxicam 7.5 mg b.i.d. p.r.n. [id number]/[facility] #: [id number]
[2016-09-03] MEDS ORDERED: Cholecalciferol TAB* 1000 UNITS PO SCH (09:00)
== END 2016-09-02 12:42 | disposition left against medical advice (07) | DRG 101 ==
LOC: ED 12:43 → MEDTELE 16:01
PROVIDERS: ADMIT Hospitalist; ATTEND Internal Medicine
DX: G40.909 Epilepsy, unspecified, not intractable, without status epilepticus (principal); I24.9 Acute ischemic heart disease, unspecified; F17.210 Nicotine dependence, cigarettes, uncomplicated; M81.0 Age-related osteoporosis without current pathological fracture; R74.8 Abnormal levels of other serum enzymes; F41.9 Anxiety disorder, unspecified; F10.20 Alcohol dependence, uncomplicated; I10 Essential (primary) hypertension; Z86.73 Personal history of transient ischemic attack (TIA), and cerebral infarction without residual deficits; Z79.899 Other long term (current) drug therapy; Z88.8 Allergy status to other drugs, medicaments and biological substances; Z91.041 Radiographic dye allergy status; Z80.0 Family history of malignant neoplasm of digestive organs; Z80.42 Family history of malignant neoplasm of prostate; Z82.49 Family history of ischemic heart disease and other diseases of the circulatory system; F32.9 Major depressive disorder, single episode, unspecified
CPT/HCPCS: 36415; 80053; 80307; 80320; 81003; 81015; 82550; 83605; 83735; 84484; 85025; 85610; 93005; 93306; A9270-GY; G0480; J1644; J2060

== ENCOUNTER 2016-09-08 22:41 | Emergency (ER) | payer MEDICARE, MEDICAID ==
[2016-09-09 00:42] LABS: Hematocrit 34 % (35-47); Hemoglobin 11.3 g/dl (12.0-16.0); Mean Corpuscular HGB Conc 33 g/dl (31-36); Mean Corpuscular Hemoglobin 31 pg (27-31); Mean Corpuscular Volume 95 fL (80-97); Mean Platelet Volume 8 um3 (7.4-10.4); Red Blood Count 3.61 10^6/ul (4.0-5.4); Red Cell Distribution Width 15 % (10.5-15); White Blood Count 3.5 10^3/ul (3.5-10.8)
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
[2016-09-09 00:59] LABS: Acetaminophen < 15 mcg/mL; Alcohol 124 mg/dL (<10); Salicylate < 2.50 mg/dL (<30)
[2016-09-09 01:00] LABS: ALT 15 U/L (7-52); AST 25 U/L (13-39); Albumin 4.1 g/dL (3.2-5.2); Alkaline Phosphatase 58 U/L (34-104); Anion Gap 11 mmol/L (2-11); Blood Urea Nitrogen 6 mg/dL (6-24); CO2 Carbon Dioxide 23 mmol/L (22-32); Calcium 9.6 mg/dL (8.6-10.3); Chloride 105 mmol/L (101-111); EGFR African American 131.1 (>60); Globulin 2.6 g/dL (2-4); Glucose 111 mg/dL (70-100); Potassium 3.7 mmol/L (3.5-5.0); Sodium 139 mmol/L (133-145); Total Protein 6.7 g/dL (6.4-8.9)
[2016-09-09 01:03] VITALS: BP 93/63
== END 2016-09-09 01:02 | disposition home or self-care (01) ==
LOC: ED 22:41
DX: T40.1X1A Poisoning by heroin, accidental (unintentional), initial encounter (principal); Y92.9 Unspecified place or not applicable
CPT/HCPCS: 36415; 80053; 80320; 80329; 83605; 85025; 93005; 99283; G0480

== ENCOUNTER 2016-09-12 22:04 | Emergency (ER) | payer MEDICARE, MEDICAID ==
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
[2016-09-12 23:13] VITALS: BP 111/79
== END 2016-09-13 00:30 | disposition home or self-care (01) ==
LOC: ED 22:04
DX: T40.1X1A Poisoning by heroin, accidental (unintentional), initial encounter (principal); Y92.89 Other specified places as the place of occurrence of the external cause; F17.210 Nicotine dependence, cigarettes, uncomplicated
CPT/HCPCS: 99282

== ENCOUNTER 2016-09-23 15:18 | Observation (INO) | payer MEDICARE, MEDICAID ==
[2016-09-23] MEDS ORDERED: NS 0.9% 1000 ML* 1,000 ML IV ONE ×2 (15:27→15:32)
[2016-09-23] MEDS ORDERED: Ondansetron INJ* 2 MG/ML VIAL IV ONE (15:32)
[2016-09-23 15:52] LABS: Hematocrit 39 % (35-47); Mean Corpuscular HGB Conc 33 g/dl (31-36); Mean Corpuscular Hemoglobin 31 pg (27-31); Mean Corpuscular Volume 94 fL (80-97); Mean Platelet Volume 7 um3 (7.4-10.4); Red Blood Count 4.16 10^6/ul (4.0-5.4); Red Cell Distribution Width 16 % (10.5-15); White Blood Count 11.3 10^3/ul (3.5-10.8)
[2016-09-23] MEDS ORDERED: LORazepam INJ* 2 MG/ML 1 ML VIAL IV PUSH ONE (16:33)
[2016-09-23] MEDS ORDERED: LORazepam INJ* 2 MG/ML 1 ML VIAL ONE (16:36)
[2016-09-23 16:38] LABS: ALT 13 U/L (7-52); AST 27 U/L (13-39); Alkaline Phosphatase 58 U/L (34-104); BUN/Creatinine Ratio 12.1 (8-20); Blood Urea Nitrogen 8 mg/dL (6-24); C Reactive Protein 2.25 mg/L (< 5.00); CO2 Carbon Dioxide 29 mmol/L (22-32); Calcium 9.7 mg/dL (8.6-10.3); Chloride 97 mmol/L (101-111); EGFR African American 117.5 (>60); EGFR Non-African American 91.4 (>60); Globulin 2.7 g/dL (2-4); Glucose 133 mg/dL (70-100); Lipase 11 U/L (11.0-82.0); Magnesium 1.6 mg/dL (1.9-2.7); Sodium 138 mmol/L (133-145); Total Protein 6.7 g/dL (6.4-8.9)
[2016-09-23 16:44] LABS: Anion Gap 12 mmol/L (2-11); Potassium 2.5 mmol/L (3.5-5.0)
[2016-09-23] MEDS ORDERED: Potassium Chlor TAB* 20 MEQ TAB.ER PO ONE (16:51)
[2016-09-23] MEDS ORDERED: Magnesium Sulfate 2 GM IV* 2 GM/50 ML BAG IVPB ONE (16:52)
[2016-09-23 16:53] LABS: Alcohol < 10 mg/dL (<10)
[2016-09-23] MEDS ORDERED: Thiamine IV 100 MG, Folic Acid IV* 1 MG, Multiple Vitamin IV ADULT* 10 ML in D5NS 0.9% ... IV ONE (17:13)
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
[2016-09-23] MEDS ORDERED: Acetaminophen TAB* 325 MG PO PRN (17:30)
[2016-09-23] MEDS ORDERED: LaCOSAMide VIAL * 200 MG/20 ML VIAL IV ONE (17:36)
[2016-09-23] MEDS ORDERED: LaCOSAMide VIAL * 100 MG in NS 0.9% 50 ML* 50 ML IVPB ONE (18:00)
[2016-09-23] MEDS ORDERED: LORazepam INJ* 2 MG/ML 1 ML VIAL IV PUSH SCH (18:00)
[2016-09-23 18:39] LABS: Urine Bacteria Absent (Absent); Urine Bilirubin Negative (Negative); Urine Glucose Negative (Negative); Urine Nitrite Negative (Negative)
[2016-09-23] MEDS: Diazepam TAB(*) 10 MG PO SCH (19:48)
[2016-09-23] MEDS: Pantoprazole IV* 40 MG IV SCH (20:03)
[2016-09-23] MEDS ORDERED: levETIRAcetam TAB* 500 MG PO SCH (21:00)
[2016-09-23] MEDS ORDERED: Enoxaparin(*) 40 MG/0.4 ML SYR SUBCUT SCH (21:00)
[2016-09-23] MEDS: Gabapentin CAP(*) 400 MG PO SCH (21:23)
[2016-09-23] MEDS: Metoprolol Tartrate TAB* 25 MG PO SCH (21:24)
[2016-09-23] MEDS ORDERED: Mouth Piece, Nicotine* 1 EACH CARTRIDGE INH PRN (21:46)
[2016-09-23] MEDS ORDERED: PROCHLORPERAZINE INJ 5 MG/ML 2 ML VIAL IV PRN (22:41)
[2016-09-23] MEDS ORDERED: NS 0.9% 1000 ML* 1,000 ML IV SCH (23:45)
[2016-09-23] MEDS ORDERED: Diazepam TAB(*) 5 MG PO PRN (23:52)
[2016-09-24] MEDS ORDERED: predniSONE TAB* 50 MG PO ONE ×4 (00:06→08:59)
--- NOTE | 2016-09-24 00:10 | HP ---
CC: Chris Dean MD; Dr. Peters; Dr. Ding * HISTORY AND PHYSICAL: DATE OF ADMISSION: 09/23/16 PRIMARY CARE PROVIDER: Chris Dean MD. PRIMARY NEUROLOGIST: Dr. Peters. ADMITTING PROVIDER: SUNDAY Barron SUPERVISING PHYSICIAN: Anupam Bland MD * (DICTATED BY SUNDAY BARRON) CHIEF COMPLAINT: Seizure with intractable nausea and vomiting. HISTORY OF PRESENT ILLNESS: This is a 61-year-old female with multiple hospital admissions and well-known medical noncompliance with a seizure disorder , alcoholism, anxiety, depression, chronic pain, history of prior CVA, and history of hepatitis C, who presents to the hospital after a seizure. The patient states that she has had intractable nausea and vomiting and unable to really tolerate anything by mouth for the last 4 days. She reports associated abdominal pain and some mild diarrhea. She states that she was drinking "more than usual" and has stopped recently. She tried to drink a little bit a couple of days ago thinking that would help her symptoms, but states that it caused a burning chest and abdominal pain. The patient seized earlier today and was brought to the hospital for further evaluation. The patient is also complaining of tooth abscess in her right mandibular molar, which she has not sought care for. She has been seen in the emergency department on 2 occasions recently with heroin overdose. She states that the 2 times that she has tried to use heroin to replace her chronic pain medications, she has overdosed and this is not a daily activity for her. The patient was admitted earlier this month also after a seizure and found to have elevated troponins and on echocardiogram, new wall motion abnormalities. There was plan for cardiac catheterization at that time, but the patient left [place] before this could be accomplished. The patient was supposed to follow up with Dr. Ding as an outpatient, but did not complete followup recommendations. PAST MEDICAL HISTORY: 1. Alcoholism. 2. Seizure disorder. 3. History of CVA. 4. Anxiety and depression. 5. Chronic pain. 6. History of hepatitis C. HOME MEDICATIONS: 1. Aspirin 81 mg p.o. daily. 2. Vitamin D 1000 units p.o. daily. 3. Celexa 20 mg p.o. daily. 4. Gabapentin 400 mg p.o. t.i.d. 5. Ibuprofen 600 mg p.o. t.i.d. as needed for pain. 6. Lorazepam 0.5 mg b.i.d. 7. Vimpat 100 mg p.o. b.i.d. 8. Metoprolol 12.5 mg p.o. b.i.d. 9. Multivitamin 1 tablet p.o. daily. 10. Hydroxyzine 50 mg p.o. q.6 hours as needed for anxiety. 11. Keppra 500 mg p.o. b.i.d. SOCIAL HISTORY: The patient lives with her boyfriend. Has a long and well- known history of alcoholism. Recently has experimented with heroin resulting in overdose on 2 occasions. REVIEW OF SYSTEMS: As noted above in HPI. The patient otherwise denies cough, chest pain, or shortness of breath. She is having abdominal pain, nausea, vomiting, and diarrhea. No recent fevers. Remainder of review of systems completed and otherwise negative. PHYSICAL EXAMINATION GENERAL: This is a middle-aged female who appears older than stated age, who is in no acute distress, but does appear mildly ill. VITAL SIGNS: Initial vitals, temperature 98.5 degrees Fahrenheit, pulse 97 beats per minute, respiratory rate 17, oxygen saturation 96% on room air, and blood pressure 89/61 mmHg. HEENT: Head is normocephalic, atraumatic. There is some slight swelling to the right mandibular area, which is also tender to palpation. Mucous membranes are mildly dry. NECK: Neck is supple and free of lymphadenopathy. RESPIRATORY: Lungs are clear to auscultation without wheezes, crackles, or rhonchi. CARDIOVASCULAR: Heart has a regular rate and rhythm without murmurs, rubs, or gallops. ABDOMEN: Soft, but diffusely tender to palpation with bowel sounds present. PSYCH: The patient is alert and appropriately oriented. Affect is appropriate to situation. LABORATORY DATA: CBC shows a white blood cell count of 11,300, hemoglobin of 13 g/dL, and a platelet count of 293,000. Comprehensive metabolic panel shows sodium of 138 mmol/L, potassium of 2.5, bicarb of 29, with an elevated anion gap of 12, BUN of 8, creatinine 0.66. Lactic acid is 4.5. Magnesium low at 1.6. Transaminases and total bilirubin within normal limits. CRP normal at 2.25. Lipase normal at 11. Serum alcohol is 0. IMAGIN. EKG shows a sinus rhythm but with prolonged QTC measuring 575 milliseconds. 2. Reviewed echocardiogram from 09/02/16, shows an EF of 45% to 50% and anterior wall motion abnormalities that were new when compared to prior. ASSESSMENT AND PLAN: This is a 61-year-old female with multiple prior hospital admissions with seizure disorder and alcoholism, who presents with seizure and intractable nausea and vomiting, as well as prolonged QTC. 1. Seizure - the patient has been unable to take her typical antiepileptic medications due to intractable nausea and vomiting. She also has multiple electrolyte disturbances and her presenting symptom of nausea and vomiting is most likely related to withdrawal, all of which will lower her seizure threshold. I spoke with her neurologist, Dr. Peters who stated that the goal has been to taper her from Keppra and have her on Vimpat as the sole agent. He suggested that her Keppra not be continued and that she receive IV Vimpat and when she can tolerate, resume oral Vimpat at a dose of 100 mg twice daily. She is also to continue her gabapentin. No EEG or other intracranial imaging appears to be necessary at this time. The patient's mental status is back to baseline without focal neurologic deficits. 2. Intractable nausea and vomiting with associated abdominal pain - I suspect that this is likely related to alcohol withdrawal. We will treat her for withdrawal symptoms as well as start PPI for presumed gastritis. There is no evidence of bleeding or other source of infection. She is hypotensive, but this is likely due to intravascular volume loss due to excessive GI losses. 3. Hypokalemia - potassium of 2.5 at the time of admission, likely secondary to GI loss. She received some supplementation in the emergency department and will continue to receive potassium supplementation through her IV fluids. 4. Hypomagnesemia. Again, likely due to GI loss and we will replace IV and repeat labs tomorrow. 5. Elevated lactate without associated acidosis, likely secondary to her seizure. Serum bicarb is within normal limits. We plan to repeat lactic acid 4 hours from her initial. I do not think this is secondary to sepsis. 6. Coronary artery disease. During her last hospitalization, she had peak of troponin with new wall motion abnormalities appreciated on echo with planned cardiac catheterization, which she did not complete as she left the hospital against medical advice prior to that. Dr. Ding has been notified of her readmission and questioned whether he wants to move forward with cardiac catheterization. Her medical compliance has been poor at best and questioned whether she can follow through with appropriate antiplatelet therapy following cardiac catheterization. Dr. Ding plans to discuss the case further with an interventionalist. She will need to be premedicated as she is allergic to IODINATED CONTRAST AGENTS if plan is to move forward with cardiac catheterization. She is otherwise asymptomatic at this time and has no ischemic changes on EKG. 7. Prolonged QTC - suspect this is likely due to her hypokalemia and hypomagnesia. Anticipate improvement with appropriate replacement. We will keep her on continuous telemetry monitoring and repeat an EKG. Avoid any additional QTC prolonging agents. 8. Alcohol withdrawal - suspect that her presenting symptoms perhaps even her seizure is associated with alcohol withdrawal. WAM protocol will be initiated appropriately with IV Ativan as well as tapering oral Valium for additional seizure prophylaxis. 9. Tooth abscess - the patient has right mandibular swelling and tenderness to palpation with associated dental pain. We will start her on Augmentin for treatment of the tooth abscess and can be referred to a dentist at the time of discharge. 10. History of hepatitis C - no evidence of liver dysfunction at this time. 11. Anxiety and depression. 12. Code status - the patient is full code. 13. DVT prophylaxis - the patient will be started on subcu Lovenox. 14. Healthcare proxy is unknown. DISPOSITION: The patient is being admitted to inpatient status with anticipated length of stay to be greater than 2 midnights. SUNDAY BARRON [id number]/[facility] #: [id number] BRAIN
[2016-09-24 01:56] LABS: BUN/Creatinine Ratio 8.6 (8-20); Calcium 8.4 mg/dL (8.6-10.3); EGFR African American 136.4 (>60); Potassium 3.2 mmol/L (3.5-5.0)
[2016-09-24] MEDS: Diazepam TAB(*) 10 MG PO SCH ×2 (02:52→09:53)
[2016-09-24 03:12] LABS: Magnesium 1.9 mg/dL (1.9-2.7)
[2016-09-24] MEDS: Pantoprazole IV* 40 MG IV SCH (07:41)
[2016-09-24] MEDS: Metoprolol Tartrate TAB* 25 MG PO SCH (07:42)
[2016-09-24] MEDS: Gabapentin CAP(*) 400 MG PO SCH ×2 (07:42→13:12)
[2016-09-24] MEDS: Nicotine Inhaler* 10 MG AMP INH PRN ×2 (07:42→13:13)
[2016-09-24] MEDS ORDERED: Thiamine TAB* 100 MG TAB PO SCH (09:00)
[2016-09-24] MEDS ORDERED: Citalopram TAB* 20 MG PO SCH (09:00)
[2016-09-24] MEDS ORDERED: Lacosamide TAB* 100 MG TAB PO SCH (09:00)
[2016-09-24] MEDS ORDERED: Amoxicillin/Clavulanate TAB* 875 MG PO SCH (09:00)
[2016-09-24] MEDS ORDERED: Multivitamins/Minerals TAB PO SCH ×2 (09:00)
[2016-09-24] MEDS ORDERED: Aspirin Low Dose CHEW TAB* 81 MG PO SCH (09:00)
[2016-09-24] MEDS ORDERED: Folic Acid TAB* 1 MG PO SCH (09:00)
[2016-09-24] MEDS ORDERED: fentaNYL* 50 MCG/ML 2 ML VIAL (100 MCG VIAL) ONE (11:18)
[2016-09-24] MEDS ORDERED: Midazolam* 1 MG/ML 5 ML VIAL (5 MG) ONE (11:18)
[2016-09-24] MEDS ORDERED: Iohexol 350 (CONTRAST) 200 ML MDV IV ONE (11:19)
[2016-09-24] MEDS ORDERED: Lidocaine 1% INJ* 10 MG/ML 30 ML SDV ONE (11:19)
[2016-09-24] MEDS ORDERED: Heparin 2 UNITS/ML IVPREMIX* 3,000 ML IV ONE (11:19)
[2016-09-24] MEDS ORDERED: Iodixanol* (CONTRAST) 320 MG/ML 100 ML SDV ONE (12:07)
--- NOTE | 2016-09-24 13:44 | DCNOTE ---
Subjective Date of Service: 09/24/16 Interval History: No more N&V. No new c/o, anxious to go home. Objective Active Medications: Acetaminophen (Tylenol Tab*) 650 mg PO Q4H PRN PRN Reason: PAIN Amoxicillin/Clavulanate Potassium (Augmentin Tab*) 875 mg PO BID [facility] Last Admin: 09/24/16 07:42 Dose: 875 mg Aspirin (Aspirin Low Dose Tab*) 81 mg PO DAILY [facility] Last Admin: 09/24/16 07:42 Dose: 81 mg Citalopram Hydrobromide (Celexa Tab*) 20 mg PO DAILY [facility] Last Admin: 09/24/16 07:42 Dose: 20 mg Device (Nicotine Mouth Piece*) 1 each INH .USE WITH NICOTROL PRN PRN Reason: CRAVING Diazepam (Valium Tab(*)) 10 mg PO Q12H [facility] PRN Reason: Taper Stop: 09/26/16 13:59 Last Admin: 09/24/16 09:53 Dose: 10 mg Diazepam (Valium Tab(*)) 5 mg PO ONCE PRN PRN 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 Stop: 09/25/16 23:51 Diphenhydramine HCl (Benadryl Po*) 25 mg PO ONCE PRN PRN 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 Stop: 09/25/16 23:51 Folic Acid (Folvite Tab*) 1 mg PO DAILY [facility] Last Admin: 09/24/16 07:34 Dose: Not Given Gabapentin (Neurontin Cap(*)) 400 mg PO TID [facility] Last Admin: 09/24/16 13:12 Dose: 400 mg Potassium Chloride 40 meq/ (Lactated Ringer's) 1,020 mls @ 100 mls/hr IVPB Q10H [facility] Last Admin: 09/24/16 13:12 Dose: Not Given Lacosamide (Vimpat Tab*) 100 mg PO BID [facility] Last Admin: 09/24/16 07:42 Dose: 100 mg Lorazepam (Ativan Inj*) 0 - 3 mg IV PUSH .PER [facility] PROTOCOL [facility] PRN Reason: Protocol Metoprolol Tartrate (Lopressor Tab*) 12.5 mg PO BID [facility] Last Admin: 09/24/16 07:42 Dose: 12.5 mg Multivitamins/Minerals (Theragran/Minerals Tab*) 1 tab PO DAILY [facility] Last Admin: 09/24/16 07:34 Dose: Not Given Nicotine (Nicotine Inhaler*) 10 mg INH Q2H PRN PRN Reason: CRAVING Last Admin: 09/24/16 13:13 Dose: 10 mg Pantoprazole Sodium (Protonix Iv*) 40 mg IV DAILY [facility] Last Admin: 09/24/16 07:41 Dose: 40 mg Prochlorperazine Edisylate (Compazine Inj*) 5 mg IV Q6H PRN PRN Reason: NAUSEA/VOMITING Last Admin: 09/23/16 23:23 Dose: 5 mg Thiamine HCl (Vitamin B-1 Tab*) 100 mg PO DAILY [facility] Last Admin: 09/24/16 07:34 Dose: Not Given Vital Signs 09/23/16 09/23/16 09/23/16 17:30 18:00 19:29 Temperature Pulse Rate 89 89 Respiratory 7 11 7 Rate Blood Pressure 109/66 115/79 (mmHg) O2 Sat by Pulse 96 98 Oximetry 09/23/16 09/23/16 09/23/16 19:30 19:36 19:40 Temperature Pulse Rate Respiratory 3 14 16 Rate Blood Pressure (mmHg) O2 Sat by Pulse Oximetry 09/23/16 09/23/16 09/23/16 19:48 19:50 20:00 Temperature Pulse Rate Respiratory 14 8 14 Rate Blood Pressure (mmHg) O2 Sat by Pulse Oximetry 09/23/16 09/23/16 09/23/16 20:10 20:20 20:30 Temperature Pulse Rate Respiratory 11 7 6 Rate Blood Pressure (mmHg) O2 Sat by Pulse Oximetry 09/23/16 09/23/16 09/23/16 20:36 20:40 20:50 Temperature Pulse Rate Respiratory 14 22 9 Rate Blood Pressure (mmHg) O2 Sat by Pulse Oximetry 09/23/16 09/23/16 09/23/16 21:00 21:10 21:20 Temperature Pulse Rate Respiratory 7 15 3 Rate Blood Pressure (mmHg) O2 Sat by Pulse Oximetry 09/23/16 09/23/16 09/23/16 21:23 21:30 21:33 Temperature Pulse Rate Respiratory 14 15 0 Rate Blood Pressure (mmHg) O2 Sat by Pulse Oximetry 09/23/16 09/23/16 09/23/16 21:40 21:48 21:50 Temperature Pulse Rate Respiratory 1 20 0 Rate Blood Pressure (mmHg) O2 Sat by Pulse Oximetry 09/23/16 09/23/16 09/23/16 22:00 22:10 22:20 Temperature Pulse Rate Respiratory 0 0 0 Rate Blood Pressure (mmHg) O2 Sat by Pulse Oximetry 09/23/16 09/23/16 09/23/16 22:30 22:33 22:39 Temperature 98.2 F Pulse Rate 89 83 Respiratory 0 14 14 Rate Blood Pressure 121/73 120/80 (mmHg) O2 Sat by Pulse 98 Oximetry 09/23/16 09/23/16 09/23/16 22:40 22:50 23:00 Temperature Pulse Rate Respiratory 20 8 0 Rate Blood Pressure (mmHg) O2 Sat by Pulse Oximetry 09/23/16 09/23/16 09/23/16 23:10 23:20 23:23 Temperature Pulse Rate Respiratory 16 19 22 Rate Blood Pressure (mmHg) O2 Sat by Pulse Oximetry 09/23/16 09/23/16 09/23/16 23:27 23:30 23:40 Temperature 98.3 F Pulse Rate 80 Respiratory 22 24 18 Rate Blood Pressure 88/46 (mmHg) O2 Sat by Pulse 97 Oximetry 09/23/16 09/24/16 09/24/16 23:50 00:00 00:10 Temperature Pulse Rate Respiratory 12 0 0 Rate Blood Pressure (mmHg) O2 Sat by Pulse Oximetry 09/24/16 09/24/16 09/24/16 00:20 00:30 00:40 Temperature Pulse Rate Respiratory 0 0 0 Rate Blood Pressure (mmHg) O2 Sat by Pulse Oximetry 09/24/16 09/24/16 09/24/16 00:46 00:50 01:00 Temperature Pulse Rate 76 Respiratory 16 0 37 Rate Blood Pressure 100/63 (mmHg) O2 Sat by Pulse 100 Oximetry 09/24/16 09/24/16 09/24/16 01:10 01:20 01:30 Temperature Pulse Rate Respiratory 8 17 14 Rate Blood Pressure (mmHg) O2 Sat by Pulse Oximetry 09/24/16 09/24/16 09/24/16 01:40 01:50 02:00 Temperature Pulse Rate Respiratory 18 0 13 Rate Blood Pressure (mmHg) O2 Sat by Pulse Oximetry 09/24/16 09/24/16 09/24/16 02:10 02:20 02:30 Temperature Pulse Rate Respiratory 0 0 9 Rate Blood Pressure (mmHg) O2 Sat by Pulse Oximetry 09/24/16 09/24/16 09/24/16 02:40 02:50 02:52 Temperature Pulse Rate Respiratory 2 2 18 Rate Blood Pressure (mmHg) O2 Sat by Pulse Oximetry 09/24/16 09/24/16 09/24/16 03:00 03:10 03:18 Temperature 97.5 F Pulse Rate 80 Respiratory 0 8 20 Rate Blood Pressure 94/70 (mmHg) O2 Sat by Pulse 94 Oximetry 09/24/16 09/24/16 09/24/16 03:20 03:30 03:40 Temperature Pulse Rate Respiratory 0 4 19 Rate Blood Pressure (mmHg) O2 Sat by Pulse Oximetry 09/24/16 09/24/16 09/24/16 03:50 04:00 04:10 Temperature Pulse Rate Respiratory 17 16 18 Rate Blood Pressure (mmHg) O2 Sat by Pulse Oximetry 09/24/16 09/24/16 09/24/16 04:20 04:30 04:40 Temperature Pulse Rate Respiratory 21 20 7 Rate Blood Pressure (mmHg) O2 Sat by Pulse Oximetry 09/24/16 09/24/16 09/24/16 04:50 05:00 05:10 Temperature Pulse Rate Respiratory 8 14 2 Rate Blood Pressure (mmHg) O2 Sat by Pulse Oximetry 09/24/16 09/24/16 09/24/16 05:20 05:28 05:30 Temperature 98.1 F Pulse Rate 71 Respiratory 1 16 0 Rate Blood Pressure 98/71 (mmHg) O2 Sat by Pulse 97 Oximetry 09/24/16 09/24/16 09/24/16 05:40 05:50 06:00 Temperature Pulse Rate Respiratory 0 0 4 Rate Blood Pressure (mmHg) O2 Sat by Pulse Oximetry 09/24/16 09/24/16 09/24/16 06:10 06:20 06:30 Temperature Pulse Rate Respiratory 0 0 0 Rate Blood Pressure (mmHg) O2 Sat by Pulse Oximetry 09/24/16 09/24/16 09/24/16 06:40 06:50 07:00 Temperature Pulse Rate Respiratory 0 15 65 Rate Blood Pressure (mmHg) O2 Sat by Pulse Oximetry 09/24/16 09/24/16 09/24/16 07:10 07:20 07:24 Temperature 97.8 F Pulse Rate 68 Respiratory 19 21 16 Rate Blood Pressure 98/68 (mmHg) O2 Sat by Pulse 98 Oximetry 09/24/16 09/24/16 09/24/16 07:25 07:30 07:40 Temperature Pulse Rate Respiratory 16 14 8 Rate Blood Pressure (mmHg) O2 Sat by Pulse Oximetry 09/24/16 09/24/16 09/24/16 07:42 07:50 08:00 Temperature Pulse Rate Respiratory 16 18 21 Rate Blood Pressure (mmHg) O2 Sat by Pulse Oximetry 09/24/16 09/24/16 09/24/16 08:10 08:20 08:30 Temperature Pulse Rate Respiratory 3 8 18 Rate Blood Pressure (mmHg) O2 Sat by Pulse Oximetry 09/24/16 09/24/16 09/24/16 08:40 08:50 09:00 Temperature Pulse Rate Respiratory 29 9 10 Rate Blood Pressure (mmHg) O2 Sat by Pulse Oximetry 09/24/16 09/24/16 09/24/16 09:10 09:20 09:30 Temperature Pulse Rate Respiratory 17 0 13 Rate Blood Pressure (mmHg) O2 Sat by Pulse Oximetry 09/24/16 09/24/16 09/24/16 09:40 09:42 09:50 Temperature Pulse Rate Respiratory 22 16 8 Rate Blood Pressure (mmHg) O2 Sat by Pulse Oximetry 09/24/16 09/24/16 09/24/16 09:53 10:00 10:10 Temperature Pulse Rate Respiratory 16 12 11 Rate Blood Pressure (mmHg) O2 Sat by Pulse Oximetry 09/24/16 09/24/16 09/24/16 10:20 10:30 10:40 Temperature Pulse Rate Respiratory 12 0 11 Rate Blood Pressure (mmHg) O2 Sat by Pulse Oximetry 09/24/16 09/24/16 09/24/16 10:50 11:00 11:06 Temperature 98.1 F Pulse Rate 68 Respiratory 14 9 16 Rate Blood Pressure 106/74 (mmHg) O2 Sat by Pulse 98 Oximetry 09/24/16 09/24/16 09/24/16 11:10 11:20 11:30 Temperature Pulse Rate Respiratory 13 6 25 Rate Blood Pressure (mmHg) O2 Sat by Pulse Oximetry 09/24/16 09/24/16 09/24/16 12:43 12:50 12:58 Temperature 97.6 F Pulse Rate 62 Respiratory 13 7 15 Rate Blood Pressure 112/82 (mmHg) O2 Sat by Pulse 98 Oximetry 09/24/16 09/24/16 09/24/16 13:00 13:10 13:12 Temperature Pulse Rate Respiratory 2 28 12 Rate Blood Pressure (mmHg) O2 Sat by Pulse Oximetry Oxygen Devices in Use Now: None Appearance: Supine in bed post-cath. In good spirits. Alert. Looks comfortable. Eyes: No Scleral Icterus Ears/Nose/Mouth/Throat: Clear Oropharnyx, Mucous Membranes Moist Neck: NL Appearance and Movements; NL JVP, No Thyroid Enlargement, Masses Respiratory: Symmetrical Chest Expansion and Respiratory Effort, Clear to Auscultation, Clear to Percussion Cardiovascular: NL Sounds; No Murmurs; No JVD, RRR, No Edema, - Extremities: No Edema, No Clubbing, Cyanosis, - Skin: No Rash or Ulcers, No Nodules or Sclerosis, - Neurological: Alert and Oriented x 3, NL Sensation Result Diagrams: 09/23/16 15:36 09/24/16 01:25 Additional Lab and Data: Lab Results 09/23/16 Range/Units 15:36 WBC 11.3 H (3.5-10.8) 10^3/ul RBC 4.16 (4.0-5.4) 10^6/ul Hgb 13.0 (12.0-16.0) g/dl Hct 39 (35-47) % MCV 94 (80-97) fL MCH 31 (27-31) pg MCHC 33 (31-36) g/dl RDW 16 H (10.5-15) % Plt Count 293 (150-450) 10^3/ul MPV 7 L (7.4-10.4) um3 Neut % (Auto) 79.1 (38-83) % Lymph % (Auto) 11.6 L (25-47) % [place] % (Auto) 8.8 (1-9) % Eos % (Auto) 0.2 (0-6) % Baso % (Auto) 0.3 (0-2) % Absolute Neuts (auto) 9.0 H (1.5-7.7) 10^3/ul Absolute Lymphs (auto) 1.3 (1.0-4.8) 10^3/ul Absolute Monos (auto) 1.0 H (0-0.8) 10^3/ul Absolute Eos (auto) 0 (0-0.6) 10^3/ul Absolute Basos (auto) 0 (0-0.2) 10^3/ul Absolute Nucleated RBC 0 10^3/ul Nucleated RBC % 0 Assess/Plan/Problems-Billing Assessment: - Patient Problems (1) Seizure disorder Current Visit: No Status: Acute Onset Date: 12/22/14 Code(s): G40.909 - EPILEPSY, UNSP, NOT INTRACTABLE, WITHOUT STATUS EPILEPTICUS SNOMED Code(s): 365199280 Comment: Patient took no meds for several days while she was vomiting. She states she has enough lacosamine at home. Fup Dr. Peters. I spoke with him and he recommends single-drug tx with lacosamine. (2) CAD (coronary artery disease) Current Visit: Yes Status: Acute Code(s): I25.10 - ATHSCL HEART DISEASE OF [place] CORONARY ARTERY W/O ANG PCTRS SNOMED Code(s): 98335901 Comment: Recent mild troponin elevation with anterior wall defect on nuclear stress test. Cardiac cath today showed nl coronaries, verbal report by Dr. Ding. Continue ASA, metoprolol. (3) Polysubstance abuse Current Visit: No Status: Acute Onset Date: 07/06/14 Code(s): F19.10 - OTHER PSYCHOACTIVE SUBSTANCE ABUSE, UNCOMPLICATED SNOMED Code(s): 039285838 Comment: She declined my offer of SW consultation. She states her family may bring her to the [facility] for outpt tx. Status and Disposition: Discharge now. Fup Fran Lowe.
--- NOTE | 2016-09-24 13:54 | PN ---
Progress Note - Progress Note Date of Service: 09/24/16 Note: Amox/clav 875 mg bid rx'd to Lisa Abdi for her dental abcess. Pt states she will make a dental appt soon.
[2016-09-24 14:20] VITALS: BP 118/77
[2016-09-24] MEDS ORDERED: diPHENhydraMINE PO* 25 MG PO PRN (23:52)
--- NOTE | 2016-09-25 04:17 | CATH ---
CC: Chris Dean MD * CARDIAC CATHETERIZATION NOTE: DATE OF PROCEDURE: 09/24/16 PROCEDURE: Cardiac catheterization including coronary angiography. INDICATION: Acute coronary syndrome, abnormal EKG. The patient is a 61-year-old female with multiple medical problems. The patient was admitted to the hospital 2 weeks ago for chest pain. At that time, she had an abnormal echocardiogram, which showed anterior wall hypokinesis and elevated troponin levels. At that time I recommended a cardiac catheterization. The patient left the hospital against medical advice. The patient was scheduled for a cardiac catheterization as an outpatient a week later, at which time she canceled the procedure. The patient was admitted to the hospital yesterday with a presumed seizure and I saw the patient for evaluation. The patient asked to have a cardiac catheterization as she was worried about her coronary arteries. A long discussion was had with the patient regarding her medical compliance. If she did have a cardiac catheterization and needed a stent, she needed to be completely compliant with her antiplatelet agents. She assured me that she would do that. PROCEDURE IN DETAIL: The patient was brought to the cardiac catheterization lab in a fasting state. Informed consent had been obtained prior to the procedure. All labs had been reviewed. The patient does have an IV DYE allergy. The patient was given prednisone prior to the procedure. The patient was placed supine on the procedure table. Her femoral areas were cleaned and draped in the usual fashion. 1% lidocaine was used for local anesthesia. The right femoral artery was entered by a modified Seldinger technique and a 6- American sheath introducer was placed. The patient under-went coronary angiography using a 6-American JL4 catheter and a 6-American AR1 catheter. At the end of the procedure, an angiogram of the femoral artery demonstrated normal position of the catheter and a Mynx closure device was deployed. The patient tolerated the procedure well. There were no complications. A total of 55 cc of Visipaque dye was used. A total of 1.1 minutes of fluoro time was used. FINDINGS: 1. Left main artery. The left main was normal in size. It bifurcated into the LAD and circumflex. There was no evidence of stenosis. 2. Left anterior descending artery. The LAD was normal in size. It gave off one diagonal vessel. There was no evidence of stenosis. 3. Left circumflex artery. The circumflex artery was normal in size. It gave off one obtuse marginal branch. There was no evidence of stenosis. 4. Right coronary artery. The RCA was a large dominant vessel. It gave off PDA and a posterolateral branch. There was no evidence of stenosis. IMPRESSION: 1. Normal coronary arteries. 2. Mynx closure device. RECOMMENDATIONS: The patient will be continued on maximum medical therapy. [id number]/[facility] #: [id number] [facility]
--- NOTE | 2016-09-25 05:15 | DS ---
CC: Dr. Peters; Dr. Dean * DISCHARGE SUMMARY: DATE OF ADMISSION: 09/23/16 DATE OF DISCHARGE: 09/24/16 HISTORY: This 61-year-old woman presented with a seizure. She had some vomiting for several days and could not pick her anti-seizure medications. She was also drinking alcohol during those period of time. She had some hypokalemia. I spoke with Dr. Peters as did the admitting provider and he recommend she not take levetiracetam because of its side effects profile and that it would be easier for her to take a single medication namely lacosamide 100 mg b.i.d. The patient told me she had an adequate supply at home. She was started on that in the hospital. She had no further nausea or vomiting in the hospital and was tolerating the oral diet well. Because of her recent acute coronary syndrome with elevated troponin and abnormal stress test, coronary catheterization was done. Verbal report said she had normal coronary arteries. She will continue on aspirin and metoprolol. I offered her Social Work consultation for her polysubstance abuse problems. She declined that. She said that her family would be bringing her to the [facility] and she would seek outpatient therapy around there. FINAL DIAGNOSES: 1. Seizure disorder. 2. Coronary artery disease. 3. Polysubstance abuse. DISCHARGE MEDICATIONS: 1. Amoxicillin clavulanate 875 mg b.i.d. for 7 days 2. Hydroxyzine 50 mg every 6 hours p.r.n. 3. Citalopram 20 mg daily. 4. Lacosamide 100 mg b.i.d. 5. Aspirin 81 mg daily. 6. Vitamin D 1000 units daily. 7. Multivitamin with minerals 1 daily. 8. Lorazepam 0.5 mg b.i.d. p.r.n. 9. Gabapentin 400 mg t.i.d. 10. Ibuprofen 600 mg t.i.d. 11. Metoprolol tartrate 12.5 mg b.i.d. [id number]/[facility] #: [id number] [facility]
== END 2016-09-24 16:20 | disposition home or self-care (01) ==
LOC: ED 15:18 → MEDTELE 17:27 → INTOOBSV 17:27
PROVIDERS: ADMIT Hospitalist; ATTEND Internal Medicine
DX: G40.909 Epilepsy, unspecified, not intractable, without status epilepticus (principal); I24.9 Acute ischemic heart disease, unspecified; R10.9 Unspecified abdominal pain; R07.9 Chest pain, unspecified; R11.2 Nausea with vomiting, unspecified; E83.42 Hypomagnesemia; E87.6 Hypokalemia; I25.10 Atherosclerotic heart disease of native coronary artery without angina pectoris; F10.20 Alcohol dependence, uncomplicated; I45.81 Long QT syndrome; K04.7 Periapical abscess without sinus; Z86.73 Personal history of transient ischemic attack (TIA), and cerebral infarction without residual deficits; B19.20 Unspecified viral hepatitis C without hepatic coma; F41.9 Anxiety disorder, unspecified; R74.8 Abnormal levels of other serum enzymes; F32.9 Major depressive disorder, single episode, unspecified; G89.29 Other chronic pain; Z79.82 Long term (current) use of aspirin; Z79.899 Other long term (current) drug therapy; Z88.8 Allergy status to other drugs, medicaments and biological substances; F11.10 Opioid abuse, uncomplicated
CPT/HCPCS: 36415; 80048; 80053; 80177; 80320; 81003; 81015; 83605; 83690; 83735; 85025; 85610; 85730; 86140; 87040; 93005; 93454; 96361; 96365; 96372; 96375; 99284; A9270-GY; C1760; C1887; G0378; G0480; J0780; J1644; J1650; J2001; J2060; J2250; J2405; J3010; J3480; J7512

== ENCOUNTER 2016-09-28 18:32 | Emergency (ER) | payer MEDICARE, MEDICAID ==
--- NOTE | 2016-09-28 19:54 | RAD ---
INDICATION: Syncope COMPARISON: Similar chest x-ray dated October 18, 2015 TECHNIQUE: Single AP portable view of the chest was obtained. FINDINGS: Image quality is compromised due to the relative inferiority of a portable chest x-ray. The heart and mediastinum exhibit normal size and contour. Similar the previous chest x-ray, there is ectatic curvature of the thoracic aorta. The lungs are grossly clear. There is no evidence of a large pleural effusion. Visualized bones are normal for the patient's age. IMPRESSION: No radiographic evidence for acute cardiopulmonary abnormality on this portable chest x-ray.
[2016-09-28 20:08] LABS: Urine Bilirubin Negative (Negative); Urine Glucose Negative (Negative); Urine Nitrite Negative (Negative)
--- NOTE | 2016-09-28 20:08 | RAD ---
INDICATION: Contusion left forehead after a fall. + EtOH. COMPARISON: Numerous prior brain CTs, most recently dated July 25, 2016 TECHNIQUE: Contiguous axial sections of the brain were obtained from the skull base to the vertex without contrast. FINDINGS: The ventricles, cisterns and sulci are within normal limits. Again seen is a focus of cortical encephalomalacia at the left occipital lobe measuring 1.5 cm in disease image 12 of 32). Or superiorly along the medial margin of the posterior parietal lobe there is a 2.2 cm focus of encephalomalacia (image 20 of 32). These foci are similar in appearance to the previous CT of the brain. Elsewhere the weiss-white matter differentiation is adequately maintained and there is no sulcal effacement. No significant focal abnormality or mass effect is present. There is no evidence for intracranial hemorrhage. There is mild subcutaneous induration and swelling overlying the left frontal bone. No significant focal osseous abnormality is present. The visualized portion of the paranasal sinuses and mastoid air cells appear clear. IMPRESSION: 1. Soft tissue swelling overlying the left frontal bone without underlying calvarial fracture or acute intracranial hemorrhage. 2. Stable encephalomalacia involving the left parietal-occipital lobe not significant change since the July 25, 2016 CT of the brain.
[2016-09-28 20:22] LABS: Hematocrit 39 % (35-47); Hemoglobin 12.6 g/dl (12.0-16.0); Mean Corpuscular HGB Conc 33 g/dl (31-36); Mean Corpuscular Hemoglobin 31 pg (27-31); Mean Corpuscular Volume 95 fL (80-97); Mean Platelet Volume 7 um3 (7.4-10.4); Red Blood Count 4.05 10^6/ul (4.0-5.4); Red Cell Distribution Width 16 % (10.5-15); White Blood Count 6.2 10^3/ul (3.5-10.8)
[2016-09-28 20:38] LABS: Albumin 3.9 g/dL (3.2-5.2); BUN/Creatinine Ratio 10.9 (8-20); Calcium 9.4 mg/dL (8.6-10.3); EGFR Non-African American 112.7 (>60); Globulin 2.6 g/dL (2-4); Magnesium 2.1 mg/dL (1.9-2.7); Potassium 3.5 mmol/L (3.5-5.0); Total Bilirubin 0.4 mg/dL (0.2-1.0); Total Protein 6.5 g/dL (6.4-8.9)
[2016-09-28 20:39] LABS: Troponin I 0.03 ng/mL (<0.04)
[2016-09-28 21:08] LABS: TSH (Thyroid Stimulating Horm) 1.36 mcIU/mL (0.34-5.60)
[2016-09-28 23:29] VITALS: BP 130/91
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
== END 2016-09-28 23:29 | disposition home or self-care (01) ==
LOC: ED 18:32
DX: F10.10 Alcohol abuse, uncomplicated (principal); Y90.7 Blood alcohol level of 200-239 mg/100 ml; I10 Essential (primary) hypertension; F17.210 Nicotine dependence, cigarettes, uncomplicated; W19.XXXA Unspecified fall, initial encounter; Y92.481 Parking lot as the place of occurrence of the external cause
CPT/HCPCS: 36415; 70450; 71010; 80053; 80320; 81003; 83605; 83735; 83880; 84443; 84484; 85025; 85610; 85730; 93005; 99283; G0480

== ENCOUNTER 2019-03-29 14:38 | Emergency (ER) | payer MEDICAID, MEDICARE ==
--- OUTSIDE RECORDS SUMMARY | 2019-03-29 15:38 | XMS REPORT | Continuity of Care Document ---
:1955 Author Organization [address] [place] [address] [place] [address] Phone Care Team Providers Name Role Phone NONE, NO Unavailable Unavailable Allergies, Adverse Reactions, Alerts Substance Reaction Status Substance Type Unknown WARNIN allergy(ies) could not be collected because the type is not supported. [facility] for [facility] details. Medications Medication Instructions Dosage Effective Dates (start - stop) Status Comments Drug Treatment Unknown Problems Condition Effective Dates (start - stop) Clinical Status Unknown Procedures Procedure Date Procedure Unknown Results Test Name Date and Time Measure Units Reference Range Abnormal Flag Status Comments Unknown Encounters Encounter Practice Location Reason(s) Diagnoses Date Provider Providers Description For Visit Copied on Encounter 2018 [facility] Psychiatry - NONE NO. [facility], [address] [place] [address] [address], [address], [place] [address]. tel:[phone] 2018 [facility] Primary SYMONE FOURNIER [facility] [address] [place] [address] [place] [address], [address] [place] [address], tel:[phone], [place] [address]473 tel:[phone] 2018 [facility] Primary SINDAVIN [address] -[address] [facility]. [address] [place], [address]. [address], [place] tel:[phone] tel:[phone] [place] [address] Primary Inc, [address], [address], [place] tel:[phone] Family History Family Member Diagnosis Age At Onset Father Cancer, prostate Immunizations Vaccine Date Status Comments Fluarix administered Source: New Immunization Record Fluvirin Syringe(Gap PEDS 4+ administered Source: New Immunization Record yrs & Women Payers Payer name Insurance type Covered constitution party ID Authorization(s) Unknown Social History Type Description Quantity Date Captured Comments Unknown Vital Signs Date / Height Weight BMI Pulse Blood Temperature Respiratory Body Head BMI Time: Rate Pressure Rate Surface Circumference percentile Area Unknown Chief Complaint And Reason For Visit No information Reason For Referral Reason For Referral Unknown Plan Of Care Date Type Action Status Unknown Date Type Problem Goal Intervention Status Start Date Unknown History Of Present Illness Encounter Date Complaint History Of Present Illness No information Functional Status Encounter Date Functional Assessment Cognitive Assessment Unknown Medications Administered Medication Instructions Dosage Effective Dates (start - stop) Status Comments Drug Treatment Unknown Instructions Date Instruction Additional Information Unknown
--- OUTSIDE RECORDS SUMMARY | 2019-03-29 15:38 | XMS REPORT | Continuity of Care Document ---
:1955 Author Organization [address] [place] [address] [place] [address] Phone Care Team Providers Name Role Phone TAYLOR GARCIA, GUILLAUME GARCIA Unavailable Unavailable Allergies, Adverse Reactions, Alerts Substance Reaction Status Substance Type Unknown WARNIN allergy(ies) could not be collected because the type is not supported. Please contact [facility] for further details. Medications Medication Instructions [...] Description For Visit Copied on Encounter 2018 [facility] Psychiatry - TAYLOR [employer] [facility] -2018 GUILLAUME GARCIA. [place] [address] [place], [place], [facility], [address], [facility], tel:[phone] [place], [phone]. [phone] tel:[phone] [place] [address] Primary SYMONE RADHA. [employer], [address] [place] [address] 1 [facility], [address]. [place], [place], tel:[phone] tel:[phone] [place] [address] Primary [employer], [address] [facility] -2009 [facility]. [address] [place], [address]. [address], tel:[phone] tel:[phone] 0001 - [facility], [address], [address], tel:[phone] Family History Family Member Diagnosis Age At Onset Father Cancer, prostate Immunizations Vaccine Date Status Comments Fluarix administered Source: New Immunization Record Fluvirin Syringe(Gap PEDS 4+ administered Source: New Immunization Record yrs & Women Payers Payer name Insurance type Covered republican ID Authorization(s) Unknown Social History Type Description [...]
--- OUTSIDE RECORDS SUMMARY | 2019-03-29 15:38 | XMS REPORT | Continuity of Care Document ---
:[address] [facility] Address [address] [place] [address] Phone Care Team Providers Name Role Phone TAYLOR GARCIA, GUILLAUME GARCIA Unavailable Unavailable Allergies, Adverse Reactions, Alerts Substance Reaction Status Substance Type Unknown WARNIN allergy(ies) could not be collected because the type is not supported. Please contact [facility] for further details. Medications Medication Instructions Dosage Effective Dates Status Comments (start - stop) oxycodone 15 mg Tab Take 1 tab po up - Active to 4 times a day as needed for pain amitriptyline 50 mg Tab take 1 tablet 50 MG - Active (50MG) by ORAL route every day at bedtime lisinopril 5 mg Tab take 1 tablet 5 MG - Active (5MG) by oral route every day hydrochlorothiazide 25 mg take 1 tablet 25 MG - Active Tab (25MG) by ORAL route every day Ventolin HFA 90 inhale 2 puff by 2 puff - Active mcg/Actuation Aerosol Inhalation route Inhaler every 4 - 6 hours as needed Flagyl 500 mg Tab take 1 tablet 500 MG - Active (500MG) by oral route 2 times every day Vimpat 50 mg tablet take 1 tablet by 50 MG - No Longer oral route every Active bedtime for seizure disorder Problems Condition Effective Dates (start - stop) Clinical Status Influenza Vaccine - Neck pain, chronic Lumbar back pain Hip pain, left Cervicalgia - Lumbago - Pain in joint, pelvis/thigh - Pelvic pain in female Sympto associated w/female genital - organs NOS Skin lesion Disorder, skin NOS - Anxiety Anxiety Lumbago Edema Hypertension, Benign Hemorrhoids, external w/o complication Edema of both legs External hemorrhoids Anxiety Anxiety Depression Lumbago Hypertension, Benign Dependence, drug NOS, in remission Hypertension, Benign Anxiety Lumbago Anxiety Hypertension, Benign Impetigo Impetigo Hypertension, Benign Lumbago Lumbago Lumbago Depression Arthropathy NOS, pelvis/thigh Routine Medical Exam - Depression - Gastritis Arthropathy NOS, pelvis/thigh Examination, routine medical - Swelling/mass/lump, localized Acute superficial Depression Chronic Arthropathy NOS, pelvis/thigh Chronic Gastritis Chronic Gastritis - Chronic Procedures Procedure Date Procedure Unknown Results Test Name Date and Time Measure Units Reference Range Abnormal Flag Status Comments Unknown Encounters Encounter Practice Location Reason(s) Diagnoses Date Provider Providers Description For Visit Copied on Encounter 0001 - [facility] [place] GUILLAUME GARCIA. -57 9 10-42 [facility] [place], , [address], [facility] tel:+ [phone], [phone]. tel:[phone] 2019 - Psychiatry NONE NO. [employer], - [facility] [address] [place], [place], [place], [address]. [address], tel:+ [phone] - [facility] Primary Dec- SYMONE [employer], Care RADHA. 1 57 [address] 1 Associate [facility], [place], [facility], [address]. [place], [place], tel:[phone] tel:[phone] - [facility] Primary Influenza Dec- Panorama9, Care VaccineDeck pain, RADHA. 1 [address] [place] chronicLumbar back 1 Associate [facility], Drive, [place], leftCervicalgiaLum [facility] [place], [address]. [place], [place], pelvis/thigh tel:+ [phone], [place] [phone] tel:+ [phone] - [facility] Primary Pelvic pain in Sep- BERTINI Referring [facility] Inc, Care femaleSympto SRAVANTHI. Provider: [facility] [place], [facility] 1 [address] [facility] w/female genital Dile[place] AMANDA T, Street, organs NOS [place] [address] [facility], [place], [place], [place], [place] [address], [place], [address]. [facility], tel:+ tel:+ [phone], [phone] [place], [address]. tel:[phone] 0001 - [facility] Primary Skin Gerry- [facility], Care lesionDisorder, [place] skin NOS 1 [place], [address], [place] tel:+ [phone] - [facility] Primary Anxiety July- [facility], Care [address], [address], [place] tel:+ [phone] - [facility] Primary AnxietyLumbago Jun- [facility], Care [address], [address], [place] tel:+ [phone] - [facility] Primary EdemaHypertension, May- [facility], Care BenignHemorrhoids, Bal[place] external w/[place], [address], [place] tel:+ [phone] - [facility] Primary Edema of both May- [facility], Care legsExternal [place], [address], [place] tel:[phone] 0001 - [facility] Primary Anxiety Fe- [facility], Care [address], [address], [place] tel:+ [phone] 0001 - [facility] Primary AnxietyDepressionL [facility], Care umbagoHypertension [address] BenignDependence, Street, drug N[place], [place], [address], [place] tel:+ [phone] 0001 - [facility] Primary Hypertension, S Inc, Care BenignAnxietyLumba [address], [address], [place] tel:+ [phone] 2019 - [facility] Primary AnxietyHypertensio Tony- S Inc, Care n, Benign [address], [address], [place] tel:+ [phone] 2019 - S Primary Impetigo Jan- KONEFAL S Inc, Care KACZYNSKI [address] [place] 0 DIETER. Brielle [address] [place] [address], [address]. [address], [place] tel:+ tel:[phone] 0001 - S Primary Impetigo Jan- S Inc, Care [address], [address], [place] tel:+ [phone] 2019 - S Primary Hypertension, Nov- S Inc, Care BenignLumbago [address], [address], [place] tel:+ [phone] 2019 - S Primary Lumbago Oct-2 S Inc, Care [address], [address], [place] tel:+ [phone] 0001 - S Primary Lumbago Oct-2 KONEFAL S Inc, Care 8 KACZY[address]KI [address] [place] 0 DIETER. Brielle [address] [place], [address]. [address], [place] tel:[phone] tel: [phone] 0001 - S Primary Depression Oct-0 S Inc, Care [address], [address], [place] tel:+ [phone] 0001 - [facility] Primary DepressionArthropa Nov- [facility], Care thy NOS, [address] [place] pelvis/thighGastri 0 [place], [address], [place] tel:[phone] 0001 - [facility] Primary Arthropathy NOS, SYMONE [facility], Care pelvis/thigh 7 RADHA. 1 [place] 0 [facility], Street, [facility], [address]. [place], [place], tel:+ [phone], [place] [phone] tel:+ [phone] 0001 - [facility] Primary Routine Medical Oct- [facility] ExamDepressionGast 3- [address] [place] ritisArthropathy 0 Brielle NOS, pelvis/[place], [address], [place] tel:+ [phone] [facility] Primary Examination, LEONTI [facility] [place] [facility] routine medical [address] Kasey 9 [address] [facility], [place], [address] [address], [place] [address], tel:+ [phone] [place], [address]. tel:[phone] [place] [address] Primary Swelling/mass/lump [facility], Care , localized [address] superficial 9 [place], [address], tel:[phone] Family History Family Member Diagnosis Age At Onset Father Cancer, prostate Immunizations Vaccine Date Status Comments Fluarix administered Source: New Immunization Record Fluvirin Syringe(Gap PEDS administered Source: New Immunization Record yrs & [...] Plan Of Care Date Type Action Status Referral Ordered: ordered . Pain Management. Consult and treat. Referral Referred To: ordered Dr Alexander Nina 1 SUNDAY [place], [address] [phone] Ordered: Dr Alexander Nina. Ortho Surg. Consult and treat. Appointment date/timeframe: 01/17/2011 Referral Ordered: ordered . Consult and treat. Appointment date/timeframe: 2 Weeks Referral Ordered: ordered . Physical Therapy. Consult and treat. Referral Referred To: ordered [facility] Ordered: [facility]. Consult and treat. Appointment date/timeframe: SANDRA Date Type Problem Goal Intervention Status Start Date Unknown History Of Present Illness Encounter Date Complaint History Of Present Illness No information Functional Status Encounter Date Functional Assessment Cognitive Assessment Unknown Medications Administered Medication Instructions Dosage Effective Dates (start - stop) Status Comments Drug Treatment Unknown Instructions Date Instruction Additional Information Unknown
--- OUTSIDE RECORDS SUMMARY | 2019-03-29 15:38 | XMS REPORT | Continuity of Care Document ---
:1955 Author Organization [address] [place] [address] [place] [address] Phone Care Team Providers Name Role Phone TAYLOR GARCIA, GUILLAUME GARCIA Unavailable Unavailable Allergies, Adverse Reactions, Alerts Substance Reaction Status Substance Type Unknown WARNIN allergy(ies) could not be collected because the type is not supported. Please contact [facility] for further details. Medications Medication Instructions Dosage Effective Dates (start - stop) Status Comments Drug Treatment Unknown Problems Condition Effective Dates (start - stop) Clinical Status Unknown Procedures Procedure Date Procedure Unknown Results Test Name Date and Time Measure Units Reference Range Abnormal Flag Status Comments Unknown NOTE: This patient has pending results not included in this document. Encounters Encounter Practice Location Reason(s) Diagnoses Date Provider Providers Description For Visit Copied on Encounter [address] [place] [address] JOSEPH[employer], GUILLAUME GARCIA. [address], [address], [facility], tel:[phone] [place], [address]. [address] tel:[phone] [place] [address] Primary SYMONE GARCIA. [facility], Care -2010 1 [facility], [address]. [place], [place], tel:[phone], [place] 177481 tel:[phone] [place] [address] Primary Screen Tonic [facility], Care -2009 ROBB [facility] DIETER. [address] [place], [address]. [address], tel:[phone] tel:[phone] - S [facility] Inc, [address] Care -[address] [place], [address], tel:[phone] Family History Family Member Diagnosis Age At Onset Father Cancer, prostate Immunizations Vaccine Date Status Comments Fluarix administered Source: New Immunization Record Fluvirin Syringe(Gap PEDS 4+ administered Source: New Immunization Record yrs & Women Payers Payer name Insurance type Covered alliance party ID Authorization(s) Medicare Mc [id number] Medicare Mc [id number] Social History Type Description Quantity Date Captured [...]
--- OUTSIDE RECORDS SUMMARY | 2019-03-29 15:38 | XMS REPORT | Continuity of Care Document ---
:1955 Author Organization [facility] Address [address] [place] [address] Phone Care Team Providers Name Role Phone TAYLOR GARCIA, GUILLAUME GARCIA Unavailable Unavailable Allergies, Adverse Reactions, Alerts Substance Reaction Status Substance Type Unknown WARNIN allergy(ies) could not be collected because the type is not supported. Please contact [facility] practice for further details. Medications Medication [...] For Visit Copied on Encounter 0001 - [facility] OP Structure Vision, Mental th 1-201 GUILLAUME GARCIA. 9 [address] [place], , [address], [facility] tel:+ , [place], [phone]. tel:[phone] 2019 - Psychiatry Structure Vision, - [facility] [address] GUILLAUME GARCIA. 9 [address] [place], , [address], [facility] tel:[phone] , [place], [phone]. tel:[phone] 2019 - [facility] Primary Dec-2 Viva Republica, Care 1-201 RADHA. 1 57 Baldo 1 Associate [facility], [place], [facility], [address]. [place], [place], tel:+ [phone] tel:[phone] 2019 - [facility] Primary Influenza Dec- Viva Republica, Care VaccineNeck pain, 6-201 RADHA. 1 Baldo chronicLumbar back 1 Associate [place] [facility], [facility], [place], leftCervicalgiaLum BuenaBaldo [place], [address]. [place], [place], pelvis/thigh tel:+ [phone], [place] [phone] tel:+ [phone] 0001 - [facility] Primary Pelvic pain in Sep- NAKULINI Referring [facility], Care femaleSympto [facility]. Provider: [address] w/female genital [place] NAKULMARIA ESTHER , Street, organs NOS [place] [address] [facility], [place], [place], D[place], [place] [address], [place], [address]. [facility], tel:+ tel:+ [place], [phone] [place], [address]. tel:[phone] 0001 - [facility] Primary Skin Gerry- [facility], Care lesionDisorder, [facility] skin NOS [address] [place] [address], [address], [place] tel:+ [phone] 0001 - [facility] Primary Anxiety July- [facility], Care [address], [address], [place] tel:+ [phone] 0001 - [facility] Primary AnxietyLumbago [facility], Care [address], [address], [place] tel:+ [phone] 0001 - [facility] Primary EdemaHypertension, May- [facility], Care BenignHemorrhoids, Baldo external w/o 1 [place], [address], [place] tel:+ [phone] 0001 - [facility] Primary Edema of both May- [facility], Care legsExternal [facility] hemorrhoids [address] [place] [address], [address], [place] tel:+ [phone] 0001 - [facility] Primary Anxiety Fe- [facility], Care [address], [address], [place] tel:+ [phone] 0001 - [facility] Primary AnxietyDepressionL [facility], Care umbagoHypertension [facility] , [address] [place] [address] Benign[address], [address], drug N[place], [place], [address], [place] tel:+ [phone] 0001 - [facility] Primary Hypertension, S Inc, Care BenignAnxietyLumba [address] [facility] [place] go 1 [place], [address], [place] tel:+ [phone] 2019 - [facility] Primary AnxietyHypertensio S Inc, Care n, Benign [address], [address], [place] tel:+ [phone] 2019 - [facility] Primary Impetigo Jan- KONEFAL S Inc, Care KACZYNSKI [facility] 0 DIETER. [place] [address] [place] [address], [address]. [address], [place] tel:+ tel:+ [phone] 0001 - [facility] Primary Impetigo Jan- S Inc, Care [address], [address], [place] tel:+ [phone] 0001 - [facility] Primary Hypertension, S Inc, Care BenignLumbago [address], [address], [place] tel:+ [phone] 2019 - [facility] Primary Lumbago Dec-2 S Inc, Care [address], [address], [place] tel:[phone] 0001 - [facility] Primary Lumbago Dec-2 KONEFAL S Inc, Care 8 KACZYNSKI 33 [facility] 0 DIETER. [place] [address] [place] [address], [place], [address]. [address], [place] tel:+60 tel:+ [phone] 2019 - [facility] Primary Depression Dec- S Inc, Care [address], [address], [place] tel:+ [phone] 0001 - [facility] Primary DepressionArthropa Nov- [facility], Care thy NOS, 57 Baldo pelvis/thighGastri [address], [place], [address], [place] tel:+ [phone] 0001 - [facility] Primary Arthropathy NOS, Oct- SYMONE [facility], Care pelvis/thigh 7 RADHA. [address], Street, [facility], [address] [place] [address], tel:+ [phone], [place] [phone] tel: [phone] 0001 - [facility] Primary Routine Medical Oct- [facility], [facility] ExamDepressionGast 3 33-57 Baldo ritisArthropathy 0 [place] NOS, pelvis/thigh Street, [place], [address], [place] tel: [phone] 0001 - [facility] Primary Examination, Nov- LEONTI [facility], [facility] routine medical [address] Kasey 9 134 [facility], [place], [address] [address], [place] [address], tel:+ [phone] [phone] [place], [address]. tel: [phone] [facility] Primary Swelling/mass/lump [facility], Care , localized 5 33-57 Baldo superficial 9 [facility], [place], [address], [place] tel: [phone] Family History Family Member Diagnosis Age At Onset Father Cancer, prostate Immunizations Vaccine Date Status Comments Fluarix administered Source: New Immunization Record Fluvirin Syringe(Gap PEDS 4+ administered Source: New Immunization Record yrs & Women Payers Payer name Insurance type Covered green party ID Authorization(s) Unknown Social History Type [...] ordered Dr Alexander Nina 1 [place], [address] [phone] Ordered: Dr Alexander Nina. Ortho Surg. Consult [...]
--- OUTSIDE RECORDS SUMMARY | 2019-03-29 15:38 | XMS REPORT | Continuity of Care Document ---
:1955 Author Organization [facility] Address [address] [place] [address] Phone Care Team Providers Name Role Phone TAYLOR GARCIA, GUILLAUME GARCIA Unavailable Unavailable Allergies, Adverse Reactions, Alerts Substance Reaction Status Substance Type Unknown WARNIN allergy(ies) could not be collected because the type is not supported. Please contact [facility] practice for further details. Medications Medication [...] For Visit Copied on Encounter 0001 - [facility] OP [facility] [employer], Mental GEORGE. 57 [facility] 9 [place], , [address], [facility] tel:+ , [place], [phone]. tel:[phone] - Med Surg Nov- Provider [employer], Default. . [address] [place], [address], tel:[phone] 0001 - [facility] SYMONE [employer], Primary RADHA. 1 Care 1 Associate [facility], [address]. [place], [place], tel:[phone] tel:[phone] 0001 [facility] Influenza Dec- Tackle Grab, Primary VaccineNeck pain, 6 RADHA. 1 33-57 Care chronicLumbar back 1 Associate Anthony Baldo painHip pain, [facility] leftCervicalgiaLumba [facility] [place], [address]. [place], [place], pelvis/thigh tel:[phone] [place] [phone] tel:+ [phone] 0001 - S Pelvic pain in Nov- NAKULINI Referring S Inc, Primary femaleSympto SRAVANTHI. Provider: Care associated w/female 4416 SRAVANTHI Bland genital organs NOS Dileep AMANDA T, Street, [facility] [address] [facility], [place], [place], [place], [place] [address], [place], [address]. [place], tel:+ tel: [place], [phone] [place], [address]. tel:[phone] 0001 - [facility] Skin lesionDisorder, S Inc, Primary skin NOS Care 1 [place], [address], [place] tel:+ [phone] 0001 - [facility] Anxiety July- S Inc, Primary 57 Care 1 [place], [address], [place] tel:+ [phone] 0001 - [facility] AnxietyLumbago [employer], Primary 57 Care 1 [place], [address], [place] tel:+ [phone] 0001 - [facility] EdemaHypertension, S Inc, Primary BenignHemorrhoids, 57 Care external w/o 1 [place], [address], [place] tel:+ [phone] 0001 - [facility] Edema of both S Inc, Primary legsExternal -57 Care hemorrhoids 1 [place], [address], [place] tel:+ [phone] 0001 - [facility] Anxiety Apr- S Inc, Primary -57 Care 1 [place], [address], [place] tel:+ [phone] 0001 - [facility] AnxietyDepressionLum S Inc, Primary bagoHypertension, 57 Care BenignDependence, 1 [facility] drug NOS, in Street, [place], [address], [place] tel:+ [phone] 0001 - [facility] Hypertension, Tony-1 [facility] Inc, Primary BenignAnxietyLumbago 7-201 33-57 Care 1 [place], [address], [place] tel:+ [phone] - [facility] AnxietyHypertension, Tony-0 [facility] Inc, Primary Benign 3-201 33-57 Care 1 [place], [address], [place] tel: [phone] 0001 - [facility] Impetigo Nov-1 KONEFAL [facility] Inc, Primary 7-201 KACZYNSKI 33-57 Care 0 DIETER. [facility] [address] [place] [address], [address]. [address], [place] tel: tel: [phone] 0001 - [facility] Impetigo Nov-1 [facility] Inc, Primary 5-201 33-57 Care 0 [place], [address], [place] tel: [phone] - [facility] Hypertension, Nov-0 [facility] Inc, Primary BenignLumbago 2-201 33-57 Care 0 [place], [address], [place] tel: [phone] 0001 - [facility] Lumbago Oct-2 [facility] Inc, Primary 9-201 33-57 Care 0 [place], [address], [place] tel: [phone] 0001 - [facility] Lumbago Oct-2 KONEFAL [facility], Primary 8-201 KACZYNSKI 33-57 Care 0 DIETER. [facility] [address] [place], [address]. [address], [place] tel: tel: [phone] 0001 - [facility] Depression Oct-0 [facility] Inc, Primary 1-201 33-57 Care 0 [place], [address], [place] tel: [phone] 0001 - [facility] DepressionArthropath Sep-2 [facility] Inc, Primary y NOS, 4-201 33-57 Care pelvis/thighGastriti 0 [facility] sGastritis [place], [place], [address], [place] tel:+ [phone] 0001 - [facility] Arthropathy NOS, Oct- SYMONE S Inc, Primary pelvis/thigh 7- RADHA. 1 33-57 Care 0 Associate Anthony Bland [facility], Street, [facility], [address]. [place], [place], tel:+ [phone], [place] [phone] tel:+ [phone] 0001 - [facility] Routine Medical Oct- [facility] Inc, Primary ExamDepressionGastri 3-201 33-57 Care tisArthropathy NOS, 0 [facility] pelvis/thigh [place], [place], [address], [place] tel:+ [phone] [facility] Examination, routine Nov- LEONTI [facility], Primary medical [address] 3357 Care 9 134 [facility], [place], [place], [address] [address], [place] [address], tel:+ [place] [phone] [place], [address]. tel:+ [phone] [facility] Swelling/mass/lump, [facility], Primary localized 5200 -57 Care superficial 9 [facility], [place], [address], [place] tel:+ [phone] Family History Family Member Diagnosis Age At Onset Father Cancer, prostate Immunizations Vaccine Date Status Comments Fluarix administered Source: New Immunization Record Fluvirin Syringe(Gap PEDS 4+ administered Source: New Immunization Record yrs & Women Payers Payer name Insurance type Covered democrat ID Authorization(s) Medicare [id number] Medicare Mc [id number] Social History Type Description Quantity Date Captured [...] ordered Dr Alexander Nina 1 [place], [address] [id number] Ordered: Dr Alexander Nina. Ortho Surg. Consult and treat. Appointment date/timeframe: 01/17/2011 Referral Ordered: ordered . Consult and treat. Appointment date/timeframe: 2 Weeks Referral Ordered: ordered . Physical Therapy. Consult and treat. Referral Referred To: ordered [facility] Ordered: [facility]. Consult and treat. Appointment date/timeframe: [facility] Appointment MARK SORIANO Date Type Problem Goal Intervention Status Start Date Unknown History Of Present Illness Encounter Date Complaint History Of Present Illness No information Functional Status Encounter Date Functional Assessment Cognitive Assessment Unknown Medications Administered Medication Instructions Dosage Effective Dates (start - stop) Status Comments Drug Treatment Unknown Instructions Date Instruction Additional Information Unknown
[2019-03-29 16:00] LABS: ABS Basophils 0.1 10^3/ul (0-0.2); ABS Eosinophils 0.1 10^3/ul (0-0.6); ABS Lymphocytes 1.4 10^3/ul (1.0-4.8); ABS Monocytes 0.4 10^3/ul (0-0.8); ABS Neutrophils 4.3 10^3/ul (1.5-7.7); Eosinophil % 1.6 %; Hematocrit 39 % (35-47); Hemoglobin 13.1 g/dL (12.0-16.0); Lymphocyte % 22.6 %; Mean Corpuscular HGB Conc 34 g/dL (31-36); Mean Corpuscular Hemoglobin 30 pg (27-31); Mean Corpuscular Volume 89 fL (80-97); Mean Platelet Volume 7.7 fL (7.4-10.4); Nucleated Red Blood Cells % 0.1; Platelet Count 308 10^3/uL (150-450); Red Blood Count 4.34 10^6 /uL (3.70-4.87); Red Cell Distribution Width 14 % (10-15); White Blood Count 6.3 10^3/uL (3.5-10.8)
[2019-03-29 16:05] LABS: INR 0.99 (0.82-1.09)
[2019-03-29 16:26] LABS: Troponin I 0.01 ng/mL (<0.03)
[2019-03-29 16:30] LABS: Albumin 4.2 g/dL (3.2-5.2); Albumin/Globulin Ratio 1.8 (1-3); BUN/Creatinine Ratio 28.8 (8-20); Calcium 9.8 mg/dL (8.6-10.3); EGFR African American 144.1 (>60); EGFR Non-African American 119.1 (>60); Globulin 2.4 g/dL (2-4); Potassium 3.3 mmol/L (3.5-5.0); Total Bilirubin 0.6 mg/dL (0.2-1.0); Total Protein 6.6 g/dL (6.4-8.9)
[2019-03-29] MEDS ORDERED: Acetaminophen TAB* 325 MG PO ONE (19:36)
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
[2019-03-29] MEDS ORDERED: Famotidine TAB* 20 MG PO ONE (20:14)
[2019-03-29 20:47] VITALS: BP 154/112
== END 2019-03-29 20:45 | disposition home or self-care (01) ==
LOC: ED 14:38
DX: R07.9 Chest pain, unspecified (principal); R10.12 Left upper quadrant pain; I10 Essential (primary) hypertension; F41.9 Anxiety disorder, unspecified; F32.9 Major depressive disorder, single episode, unspecified; F17.210 Nicotine dependence, cigarettes, uncomplicated; Z96.643 Presence of artificial hip joint, bilateral; Z86.73 Personal history of transient ischemic attack (TIA), and cerebral infarction without residual deficits; Z79.899 Other long term (current) drug therapy; Z88.6 Allergy status to analgesic agent; Z91.041 Radiographic dye allergy status
CPT/HCPCS: 36415; 80053; 84484; 85025; 85610; 93005; 99282; A9270-GY

== ENCOUNTER 2019-05-10 11:20 | Emergency (ER) | payer MEDICARE ==
[2019-05-10 12:44] VITALS: BP 141/97
--- OUTSIDE RECORDS SUMMARY | 2019-05-10 12:46 | XMS REPORT | Continuity of Care Document ---
:1955 External Reference #:[id number] Author Name Destiny Richter DO (transmitted by agent of provider Theresa Coulter) Address [address] [place] [id number] Care Team Providers Name Role Phone Piero Merritt MD - Psychiatry Care Team Information Child Nutrition Assistant Rupert Barraza MD - Neurology Care Team Information Child Nutrition Assistant Alexander Nina MD - Orthopaedic Care Team Information Child Nutrition Assistant [phone] Surgery Mary Pichardo M.D. - Family Medicine Care Team Information Child Nutrition Assistant [phone] Problems Active Problems Provider Date Viral hepatitis C Anupam Bland MD Onset: 08/01/2015 Note: chronic active Heroin overdose Chris Dean M.D.,FACP Onset: 10/08/2016 Note: recurrent Alcohol abuse Anant Peters M.D. Onset: 08/01/2015 Adjustment disorder with depressed Joleen Gauthier M.D. Onset: 04/09/2011 mood Seizure Joleen Gauthier M.D. Onset: 08/01/2015 Tobacco user Joleen Gauthier M.D. Onset: 08/01/2015 Essential hypertension Joleen Gauthier M.D. Onset: 08/01/2015 Generalized anxiety disorder Joleen Gauthier M.D. Onset: 08/01/2015 Closed fracture of femur, greater Domi Costa M.D. 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 Smoking Status Reviewed: 03/30/19 Patient is a current smoker, smokes every day Exercise Type/Frequency Exercises regularly Allergies, Adverse Reactions, Alerts Active Allergies Reaction Severity Comments Date Iodine Urticaria Moderate 04/09/2011 CT Dye 12/08/2015 Inactive Allergies NKDA 04/09/2011 Medications Active Medications SIG Qnty Indications Ordering Provider Date Famotidine 1 tab by mouth 90tabs G40.919 Destiny Richter, 03/30/2019 20mg once a day DO Tablets Ibuprofen take 1 tablet by 90tabs Destiny Richter, 11/03/2018 600mg mouth 3 times a DO Tablets day as needed for pain Gabapentin take one capsule 270caps Mary Pichardo MD 05/27/2018 400mg by mouth 3 times Capsules a day Benzoyl Peroxide topical every day 45gm L70.0 Chris Rojo 07/29/2017 5% Dayan Dean,FACP Gel Mupirocin apply to affected 22units Chris Rojo 06/03/2017 2% Ointment area twice a day Dayan Dean,FACP Suboxone 1/3 strip sl 3x a 3units F11.19 Tommy Regan, 02/10/2017 12-3mg Film day Dayan G89.29 Vimpat 1 by mouth twice a 60tabs Destiny Richter DO 08/16/2016 100mg Tablets day Hydroxyzine HCL take 1 tablet 3 120tabs Mary Pichardo MD 08/02/2016 50mg Tablets times a day as needed for anxiety Medications Administered in Office Medication SIG Qnty Indications Ordering Provider Date Depomedrol 80MG Domi Costa M.D. 06/15/2014 Injection Immunizations CPT Code Status Date Vaccine Lot # [id number] Given 01/01/2018 Influenza Virus Vaccine, Quadrivalent, Split, [id number] Preservative Free [id number] Given 02/10/2017 Influenza Virus Vaccine, Quadrivalent, Split, [id number] Preservative Free [id number] Given 03/13/2016 Influ Virus Vaccine, Quadrivalent, Split Virus, [place] [id number] [place] [id number] Given 12/21/2013 Pneumonia Vaccine Vital Signs Date Vital Result Comment 03/30/2019 10:10am Height 63 inches 5'3" Weight 115.00 lb Heart Rate 92 /min BP Systolic Sitting 152 mmHg BP Diastolic Sitting 93 mmHg Body Temperature 98.6 F O2 % BldC Oximetry 98 % BMI (Body Mass Index) 20.4 kg/m2 05/01/2018 2:24pm Height 63 inches 5'3" Weight 134.12 lb Heart Rate 62 /min BP Systolic Sitting 136 mmHg BP Diastolic Sitting 80 mmHg Body Temperature 98.7 F O2 % BldC Oximetry 98 % BMI (Body Mass Index) 23.8 kg/m2 Results Test Acquired Date Facility Test Result H/L Range Note Laboratory test 03/29/2019 [facility] Troponin-I 0.01 ng/mL < 0.03 1 finding [address] [facility] ([facility]) [place], [place] [id number] [phone] Inr/Protime 03/29/2019 [facility] Inr 0.99 Normal 0.82-1.09 2 [place] [address] [phone] CBC Auto Diff 03/29/2019 [facility] White 6.3 10^3/uL Normal 3.5-10.8 [address] [facility] [place] [address] Count [phone] Red Blood Count 4.34 10^6/uL Normal 3.70-4.87 Hemoglobin 13.1 g/dL Normal 12.0-16.0 Hematocrit 39 % Normal 35-47 Mean Corpuscular Volume 89 fL Normal 80-97 Mean Corpuscular Hemoglobin 30 pg Normal 27-31 Mean Corpuscular HGB Conc 34 g/dL Normal 31-36 Red Cell Distribution Width 14 % Normal 10-15 Platelet Count 308 10^3/uL Normal 150-450 Mean Platelet Volume 7.7 fL Normal 7.4-10.4 Abs Neutrophils 4.3 10^3/uL Normal 1.5-7.7 Abs Lymphocytes 1.4 10^3/uL Normal 1.0-4.8 Abs Monocytes 0.4 10^3/uL Normal 0-0.8 Abs Eosinophils 0.1 10^3/uL Normal 0-0.6 Abs Basophils 0.1 10^3/uL Normal 0-0.2 Abs Nucleated RBC 0.0 10^3/uL Granulocyte % 68.0 % Lymphocyte % 22.6 % Monocyte % 6.8 % Eosinophil % 1.6 % Basophil % 1.0 % Nucleated Red Blood Cells % 0.1 Laboratory test 03/29/2019 [facility] Troponin-I 0.01 <0.03 [address] ([place]) ng/[place] [address] [phone] Comp Metabolic 03/29/2019 [facility] Sodium 136 Normal 135- [address] mmol/[place] [address] [phone] Potassium 3.3 mmol/L Low 3.5-5.0 Chloride 106 mmol/L Normal 101-111 Co2 Carbon Dioxide 22 mmol/L Normal 22-32 Anion Gap 8 mmol/L Normal 2-11 Glucose 103 mg/dL High 70-100 Blood Urea Nitrogen 15 mg/dL Normal 6-24 Creatinine 0.52 mg/dL Normal 0.51-0.95 BUN/Creatinine Ratio 28.8 High 8-20 Calcium 9.8 mg/dL Normal 8.6-10.3 Total Protein 6.6 g/dL Normal 6.4-8.9 Albumin 4.2 g/dL Normal 3.2-5.2 Globulin 2.4 g/dL Normal 2-4 Albumin/Globulin Ratio 1.8 Normal 1-3 Total Bilirubin 0.60 mg/dL Normal 0.2-1.0 Alkaline Phosphatase 80 U/L Normal 34-104 Alt 10 U/L Normal 7-52 Ast 16 U/L Normal 13-39 Egfr Non- 119.1 >60 Egfr 144.1 >60 4 1 Troponin-I testing on Plasma Separator Tubes (PST) has a known false positive rate of 0.20-0.40%. All positive troponins reflex immediately to secondary confirmatory testing. Using the [employer] [facility] [employer] Access Immunoassay systems, the 99th percentile upper reference limit was demonstrated to be < 0.03 ng/mL. 2 Standard intensity warfarin therapeutic range: 2.0-3.0 High intensity warfarin therapeutic range: 2.5-3.5 3 Troponin-I testing on Plasma Separator Tubes (PST) has a known false positive rate of 0.20-0.40%. All positive troponins reflex immediately to secondary confirmatory testing. Using the [employer] 800 Access Immunoassay systems, the 99th percentile upper reference limit was demonstrated to be < 0.03 ng/mL. 4 Because ethnic data is not always readily available, this report includes an eGFR for both -Americans and non- Americans. The National Kidney Disease Education Program (NKDEP) does not endorse the use of the MDRD equation for patients that are not between the ages of 18 and 70, are , have extremes of body size, muscle mass, or nutritional status, or are non- or non-. According to the National Kidney Foundation, irrespective of diagnosis, the stage of the disease is based on the level of kidney function: Stage Description GFR(mL/min/1.73 m(2)) 1 Kidney damage with normal or decreased GFR 90 2 Kidney damage with mild decrease in GFR 60-89 3 Moderate decrease in GFR 30-59 4 Severe decrease in GFR 15-29 5 Kidney failure <15 (or dialysis) Procedures Description No Information Available Medical Devices Description No Information Available Encounters Type Date Location Provider Dx Diagnosis Office Visit 03/30/2019 Business Services Intern Internal Destiny Richter, G40.919 Epilepsy, unsp, 10:20a Medicine - Suite DO intractable, R without status epilepticus B18.2 Chronic viral hepatitis C F11.21 Opioid dependence, in remission Assessments Date Code Description Provider 03/30/2019 G40.919 Epilepsy, unspecified, intractable, without Destiny Richter, DO status epilepticus 03/30/2019 B18.2 Chronic viral hepatitis C Destiny Richter, DO 03/30/2019 F11.21 Opioid dependence, in remission Destiny Richter DO Plan of Treatment 03/30/2019 - Destiny Richter, DOG40.919 Epilepsy, unspecified, intractable, without status epilepticusNew Medication:Famotidine 20 mg - 1 tab by mouth once a dayReferral:Anant Peters MD, NeurologyFollow up:one hakqgL32.2 Chronic viral hepatitis CNew Labs:Hepatitis C Rna Quant, Ordered: 03/30/19Hepatitis C Antibody, Ordered: 03/30/19Liver Function Panel, Ordered: 03/30/19Inr/Protime, Ordered: 03/30/19F11.21 Opioid dependence, in remissionComments:Call [facility] to get an apptReferral:Priscilla Arreguin NP, Family/SENIOR CREDIT ANALYST Functional Status Description No Information Available Mental Status Description No Information Available Referrals Refer to Dr Reason for Referral Status Appt Date Priscilla Arreguin NP Created [address] [place] [address] [phone] Anant Peters MD Created [address] [facility] [place] [address] [phone]
--- OUTSIDE RECORDS SUMMARY | 2019-05-10 12:46 | XMS REPORT | Summary of Care ---
:1955 Author Organization [facility] Address [address] [place] [address] Care Team Providers Name Role Phone Pcp, No Primary Care Provider Unavailable Reason for Referral Consultation (Routine) Status Reason Specialty Diagnoses / Referred By Referred To Contact Procedures Contact Open Specialty Neurology Diagnoses Seizure Substance abuse Altered mental status Seizures Alcohol abuse Tawana Tse NP Neurology Services Required [address] [facility] Provider-Based [place], [place] [address] [address] [address] [place] Phone: 4th Floor, [address] [phone] Fax: [place], [place] [phone] Email: [email or web address] Reason for Visit Reason Comments ED To ED Transfer Auth/Cert Status Reason Specialty Diagnoses / Procedures Referred By Contact Referred To Contact Diagnoses Substance abuse Seizure Altered mental status Seizures seizures Altered mental status Seizures Encounter Details Date Type Department Care Team Description 04/08/2019 - Emergency 06A GENERAL MEDICINE Fred Jackson MD [address] [place] [address] [phone] Altered mental status (Primary Dx); 04/09/2019 Benjamin Chin MD [address] [place] [address] [phone] Seizure; [address] [facility] Substance abuse; [place], [place] Seizures; [phone] Alcohol abuse Allergies No Known Allergiesdocumented as of this encounter (statuses as of 04/09/2019) Medications Medication Sig Dispensed Refills Start Date End Date Status levETIRAcetam ER Take 1 tablet by 60 tablet 1 04/08/2019 04/06/19 Active 500 MG Oral Tablet mouth Two Times 21 Extended Release Daily 24 Hour (KEPPRA XR) Ibuprofen 600 MG Take 600 mg by 0 Active Oral Tablet mouth every 8 (ADVIL,MOTRIN) (eight) hours as needed for Pain Famotidine 20 MG Take 20 mg by 0 Active Oral Tablet mouth daily (PEPCID) Buprenorphine Place 12 mg of 0 Active HCl-Naloxone HCl buprenorphine 12-3 MG Sublingual under the tongue Film (SUBOXONE) Two Times Daily Folic Acid 1 MG Take 1 tablet by 30 tablet 6 04/10/2019 04/08/19 Active Oral Tablet mouth daily 21 (FOLVITE) Thiamine HCl 100 Take 1 tablet by 90 tablet 6 04/09/2019 04/07/19 Active MG Oral Tablet mouth daily 21 (B-1) Thiamine HCl 500 Take 1 tablet by 90 tablet 6 04/09/2019 04/09/19 Discontinued MG Oral Tablet mouth every 8 20 (eight) hours documented as of this encounter (statuses as of 04/09/2019) Active Problems Problem Noted Date Alcohol abuse 04/09/2019 Altered mental status 04/08/2019 Seizures 04/08/2019 documented as of this encounter (statuses as of 04/09/2019) Social History Tobacco Use Types Packs/Day Years Used Date Current Every Day Smoker Cigarettes 0.5 15 Smokeless Tobacco: Current User Tobacco Cessation: Ready to Quit: Yes Alcohol Use Drinks/Week oz/Week Comments Yes occasionally Sex Assigned at Date Recorded Not on file Job Start Date Occupation Industry Not on file Not on file Not on file Travel History Travel Start Travel End No recent travel history available. documented as of this encounter Last Filed Vital Signs Vital Sign Reading Time Taken Comments Blood Pressure 115/87 04/09/2019 11:00 AM EST Pulse 89 04/09/2019 11:00 AM EST Temperature 36.7 04/09/2019 11:00 AM EST C (98.1 F) Respiratory Rate 16 04/09/2019 11:00 AM EST Oxygen Saturation 94% 04/09/2019 11:00 AM EST Inhaled Oxygen Concentration - - Weight 68 kg (150 lb) 04/08/2019 7:54 AM EST Height 162.6 cm (5' 4") 04/08/2019 7:54 AM EST Body Mass Index 25.75 04/08/2019 7:54 AM EST documented in this encounter Discharge Instructions Emma Archuleta NP - 04/08/2019Stop using drugs. The seizures you 're having may be related to drug use Keep hydrated Take the prescribed medication to prevent further seizures Call the neurology clinic to set up a follow-up appointment Return to the ED for any further concerns AttachmentsThe following attachments cannot be sent through Care Everywhere.Drug Abuse (Nauruan)Seizure, Recurrent (Adult) (Nauruan)documented in this encounter Progress Notes Carol Blair RN - 04/09/2019 2:28 PM ESTPt discharged from under the care of Dr. Chin. VSS. Reviewed all discharge instructions, follow-up appointments , and medications with pt. Pt verbalized understanding. Medications delivered by outpatient pharmacy, and home medications were retrieved from the inpatient pharmacy. Pt was given outpatient PT script. IVs removed. Pt transported by wheelchair with all belongings to [facility] for transport home. Amina Britton RN - 04/09/2019 1:22 PM ESTUnable to have home care d/t no PCP, will need to give script for outpatient PT. Will monitor. Amina Britton RN - 04/09/2019 1:06 PM ESTCase Management Screen & Assessment Patient's Name: Lindy Jack Date of : 1955 Age: 64 y.o. Gender: female Attending Provider: Benjamin Chin MD Admitting Diagnosis: Substance abuse [F19.10] Seizure [R56.9] Altered mental status [R41.82] Seizures [R56.9] Admission Date and Time: 04/08/2019 7:33 AM High Risk Criteria - PRIMARY MILL ROLLER/Upon Arrival PRIMARY MILL ROLLER-Type of Residence: Private residence(staying with friends) PRIMARY MILL ROLLER- Home Care Services: No Limited Home Supports/Lives Alone?: No Multi trauma/Critical care admit?: No Head/Spinal cord injury?: No Self pay/No prescription plan?: No Active with homecare?: No Multiple ED visits?: No Related/Unplanned readmission within 30 days?: No Complex/New medical issues: Altered Mental Status Relevant comorbidities: alcohol abuse, seizures CM Screen Outcome Brake Holder Screen Outcome: Meets high risk criteria for active outpatient case manager intervention Important message (Medicare rights) given?: (OBS) CM Chart Review Notice of Privacy Practice Signed?: Yes Self Pay: No Prescription Plan?: Yes (comment) Pt. Pharmacy & Phone # : [facility] PRIMARY MILL ROLLER: Functional/Environmental Assessment Came from Rehab/SNF, plan to return?: No Brief physical/psychosocial summary: lives with friends Henry/Guadalupe [phone] Bathing: Independent Dressing: Independent Toileting: Independent Medication administration: Independent Transfers: Independent Ambulation: Independent Meal preparation: Unable to assess Number of stairs into home: 0(then flight to apartment) Number of stairs to bathroom: 0 Number of stairs to bedroom: 0 Case Management Review Date CM re-review date needed?: Yes Case Management Review Date: 04/10/19 Discharge Assessment Referred to Coordinator for: set up cab Patient/family informed of need for discharge planning?: Yes Patient expects to be discharged to:: [facility] Actual discharge location : Home-With Homecare Services Home with support services reinstated?: No Living Arrangements: Friends Support Systems: Parent, Children, Friends/neighbors Type of Residence: Private residence Home services arranged?: No Note: Met with Lindy Jack. Role of Brake Holder explained. Ms Jack is on OBS status on 6A for AMS. Called and spoke to Mireya friends who she lives with, they will provide 23/09 and accepted Home PT to come in. Discharge plan to [facility] at [address] [place] [address]. Lindy Jack is aware of above plan and in agreement. Will follow. Amina Snow 1 :13 PM Alannah Fraire, PharmD - 04/09/2019 11:53 AM EST Pharmacy Medication History Review Previous Medications BUPRENORPHINE HCL-NALOXONE HCL 12-3 MG SUBLINGUAL FILM (SUBOXONE) Place 12 mg of buprenorphine under the tongue Two Times Daily Notes: -- FAMOTIDINE 20 MG ORAL TABLET (PEPCID) Take 20 mg by mouth daily Notes: -- IBUPROFEN 600 MG ORAL TABLET (ADVIL,MOTRIN) Take 600 mg by mouth every 8 (eight) hours as needed for Pain Notes: -- Medication history obtained VIA pt own meds, confirmed with pharmacies to make sure all medications were included. The following medications have been added: Blank profile, all medications added Medication History Source: [facility] [phone] The above prior to admission medications have been compared to current inpatient orders. Discrepancies: 1.) Home ibuprofen has not been ordered inpatient All other home medications have been continued at this time Medication history was completed based on information available during this patient encounter, the list above may not be all inclusive. Thank you, Alannah Kumar, PharmD Kady Stoner RN - 04/09/2019 3:34 AM [employer] engineering technical writer has been continually educating patient that she has to be NPO for 8hrs to receive ultrasound. Pt continued to ask staff for food and drinks. This engineering technical writer went in pt room and noticed she was given ice cream and gingerale. Pt now has to wait 8 more hours before receiving ultrasound per ultrasound. Kady Stoner RN - 04/09/2019 2 :01 AM ESTAll times are approximate. Pt arrived to unit around 1930 from ED. Pt gait unsteady. Pt alert and oriented however, very drowsyand noding off while being spoken to. Vitals stable. Pt safely transferred to the bed. Bed alarm in place with call lopez in reach. No acute changes at this time.Electronically signed by Kady Gómez RN at 2019 2:05 AM Kady Stoner RN - 04/09/2019 12:03 AM EST Tommy Arreola PharmD - 04/08/2019 3:46 PM EST Pharmacy Medication History Review Lindy Jack's medication history was completed in the emergency department by a medication history tractor technician and independently reviewed by myself. Previous Medications BUPRENORPHINE HCL-NALOXONE HCL 12-3 MG SUBLINGUAL FILM (SUBOXONE) Place 12 mg of buprenorphine under the tongue Two Times Daily FAMOTIDINE 20 MG ORAL TABLET (PEPCID) Take 20 mg by mouth daily IBUPROFEN 600 MG ORAL TABLET (ADVIL,MOTRIN) Take 600 mg by mouth every 8 ( eight) hours as needed for Pain Medication History Source: [id number] [phone] Tommy Escobedo PharmD Emergency Department Pharmacist Medication history was completed based on information available during this patient encounter, the list above may not be all inclusive. Kathryn Mccormick [facility] - 04/08/2019 1:27 PM EST Social Work Screening Patient Name: Lindy Jack Date of : 1955 County of Residence: [facility] Admitting Dx: seizures Admitting Provider: No att. providers found Referral Type: ED Referral Source: Social Work Reason for Referral: Homelessness Date: April 08, 2019 Informant: Patient Met with pt to discuss housing concerns. Pt states she has a friendd whom she can stay with. Asked for an exact address, pt stated she could not recall. States she needs transportation. Requested this engineering technical writer to contact Henry Miguel @ [phone] and Aspen Dang [phone], message left to contact [facility]. Willing to offer bus ticket or $25.00 gas card for family. Will transport pt to [place] on [address]. Pt will contact family once she arrives. Spoke with pt who is aware of plan however continued to nod. Spoke with primary RN, Mag Spoke with pt's daughter Heather @ [phone] who states she resides in [place]. States she is unaware of where pt resides and with whom. States she thinks her mom needs substance abuse treatment. Pt denies the need for inpatient or outpatient treatment. Pt states she receives suboxone from a clinic close to home. Questioned if she needed additional supports or a peer advocate, pt states she needs a ride and nothing else. Awaiting medical clearance at this time. SW following. 04/09/2019-- 11am- Call received from pt's daughter Heather who states pt resides with Liat @ [address] [place] [address] Coy in [place]. Their contact is [phone]. Handoff to Polina Barger [facility]. Interventions Assessed for SW needs. Signature: Kathryn Pool Date: April 08, 2019 documented in this encounter Plan of Treatment Name Type Priority Associated Diagnoses Date/Time EKG 12 Lead (Unsolicited ECG Routine 04/08/2019 8:03 AM EST Computer Order) Hepatitis C RNA, Lab Routine 04/08/2019 9:10 AM EST quantitative, PCR Name Type Priority Associated Diagnoses Order Schedule Comprehensive Metabolic Lab Routine AM Draw for 2 Panel Occurrences starting 04/09/2019 until 04/10/2019, 1 completed CBC and Differential Lab Routine AM Draw for 5 Occurrences starting 04/09/2019 until 04/13/2019, 1 completed Urinalysis/Urine Culture Lab Routine Once for 1 Occurrences starting 04/08/2019 until 04/08/2019 Ammonia Level Lab Routine Once for 1 Occurrences starting 04/08/2019 until 04/08/2019 Hepatitis C RNA, Lab Routine Once for 1 Occurrences quantitative, PCR starting 04/08/2019 until 04/08/2019 Name Type Priority Associated Diagnoses Order Schedule Referral to Outpatient Referral Routine Seizure Ordered: Neurology Substance abuse 04/09/2019 Altered mental status Seizures Alcohol abuse Health Maintenance Due Date Last Done Comments MMR Vaccines (1 of 1 - 02/27/1956 Standard series) Varicella Vaccines (1 of 2 - 02/27/1956 2-dose childhood series) Pneumococcal Vaccine: 02/27/1962 Pediatrics (0 to 5 Years) and At-Risk Patients (6 to 64 Years) (1 of 1 - PPSV23) HIV Screening 02/27/1969 Cervical Cancer Screening 5 02/27/1977 years Breast Cancer Screening 2 02/27/2006 years Colon Cancer Screening 10 yrs 02/27/2006 Zoster Vaccines (1 of 2) 02/27/2006 DTaP,Tdap,and Td Vaccines (2 09/05/2009 08/08/2009 - Tdap) Influenza Vaccine 12/01/2018 Pneumococcal Vaccine: 65+ 02/27/2021 Years (1 of 2 - PCV13) Hepatitis C Screening (B. Completed 04/08/2019, [id number]) 04/08/2019 HIB Vaccines Aged Out No longer eligible based on patient's age to complete this topic Hepatitis A Vaccines Aged Out No longer eligible based on patient's age to complete this topic Hepatitis B Vaccines Aged Out No longer eligible based on patient's age to complete this topic IPV Vaccines Aged Out No longer eligible based on patient's age to complete this topic documented as of this encounter Procedures Procedure Name Priority Date/Time Associated Comments Diagnosis US ABDOMEN LIMITED Routine 04/09/2019 10:26 Results for this [address] AM EST procedure are in the results section. CBC AND DIFFERENTIAL Routine 04/09/2019 3:15 Results for this AM EST procedure are in the results section. COMPREHENSIVE METABOLIC Routine 04/09/2019 3:15 Results for this PANEL AM EST procedure are in the results section. DRUGS OF ABUSE, URINE STAT 04/08/2019 3:00 Results for this PM EST procedure are in the results section. ETHYL ALCOHOL LEVEL STAT 04/08/2019 3:00 Results for this PM EST procedure are in the results section. CBC AND DIFFERENTIAL STAT 04/08/2019 3:00 Results for this PM EST procedure are in the results section. TSH STAT 04/08/2019 3:00 Results for this PM EST procedure are in the results section. PHOSPHORUS LEVEL STAT 04/08/2019 3:00 Results for this PM EST procedure are in the results section. MAGNESIUM LEVEL STAT 04/08/2019 3:00 Results for this PM EST procedure are in the results section. LACTIC ACID LEVEL, STAT 04/08/2019 3:00 Results for this PLASMA PM EST procedure are in the results section. VITAMIN B12 STAT 04/08/2019 3:00 Results for this PM EST procedure are in the results section. AMMONIA LEVEL STAT 04/08/2019 3:00 Results for this PM EST procedure are in the results section. COMPREHENSIVE METABOLIC STAT 04/08/2019 3:00 Results for this PANEL PM EST procedure are in the results section. POCT ISTAT CHEM8 Routine 04/08/2019 9:17 Results for this AM EST procedure are in the results section. POCT ISTAT VBG/LAC Routine 04/08/2019 9:12 Results for this AM EST procedure are in the results section. HEPATITIS C ANTIBODY STAT 04/08/2019 9:10 Results for this AM EST procedure are in the results section. POCT ISTAT TROPONIN Routine 04/08/2019 9:10 Results for this AM EST procedure are in the results section. FOLATE STAT 04/08/2019 9:10 Results for this AM EST procedure are in the results section. EKG ED PHYSICIAN Routine 04/08/2019 8:10 Results for this INTERPRETATION AM EST procedure are in the results section. EKG 12-LEAD - CMAXX 04/08/2019 8:03 REPORT AM EST EKG 12-LEAD - CMAXX 04/08/2019 8:03 REPORT AM EST EKG 12-LEAD STAT 04/08/2019 8:03 Results for this AM EST procedure are in the results section. EKG 12-LEAD - CMAXX 04/08/2019 8:03 REPORT AM EST documented in this encounter Results US Abdomen Limited (04/09/2019 10:26 AM EST) Specimen Impressions Performed At IMPRESSION: [facility] 1. No acute pathology. END IMPRESSION Narrative Performed At INDICATION: 64 years old Female with [facility] acutely altered mental status. Assess liver PROCEDURE: US ABDOMEN LIMITED 40893 COMPARISON: None. TECHNIQUE: Grayscale and color Doppler ultrasound of the abdomen. FINDINGS: LIVER: 13.9 cm in maximum dimension. Homogenous echotexture. No ascites or demonstrated mass. GALLBLADDER: Fluid-filled. Gallbladder wall measures 0.2 cm. No stone, pericholecystic fluid or sonographic Pa's sign COMMON BILE DUCT: 0.5 cm. PANCREAS: Head and proximal body are normal. Distal body and tail are obscured by overlying bowel gas. RIGHT KIDNEY: 10.6 cm x 4.7 cm x 4.4 cm for total volume of 115 mL. Cortical thickness measures 1.3 cm. No hydronephrosis, mass or stone demonstrated. Normal vascular flow demonstrated. Procedure Note Interface, Received Via [employer] - 04/09/2019 10:47 AM EST INDICATION: 64 years old Female with acutely altered mental status. Assess liver PROCEDURE: US ABDOMEN LIMITED [id number] COMPARISON: None. TECHNIQUE: Grayscale and color Doppler ultrasound of the abdomen. FINDINGS: LIVER: 13.9 cm in maximum dimension. Homogenous echotexture. No ascites or demonstrated mass. GALLBLADDER: Fluid-filled. Gallbladder wall measures 0.2 cm. No stone, pericholecystic fluid or sonographic Pa's sign COMMON BILE DUCT: 0.5 cm. PANCREAS: Head and proximal body are normal. Distal body and tail are obscured by overlying bowel gas. RIGHT KIDNEY: 10.6 cm x 4.7 cm x 4.4 cm for total volume of 115 mL. Cortical thickness measures 1.3 cm. No hydronephrosis, mass or stone demonstrated. Normal vascular flow demonstrated. IMPRESSION: 1. No acute pathology. END IMPRESSION Performing Organization Address City/State/Zipcode Phone Number [facility] [address] [place] [address] CBC and Differential (04/09/2019 3:15 AM EST) White Blood Cell 4.0 4 - 10 [facility] 10*3/uL [facility] Red Blood Cell 3.14 (L) 4.1 - 5.3 [facility] 10*6/uL [facility] Hemoglobin 9.6 (L) 11.5 - 15.5 [facility] g/dL [facility] Pathology Hematocrit 28.9 (L) 36 - 45 % [facility] Pathology Mean Cell Volume 91.9 80 - 96 fL [facility] Mean Cell Hemoglobin 30.4 27 - 33 pg [facility] Mean Cell Hgb Conc 33.1 32.0 - 36.0 [facility] g/dL [facility] Clin Pathology Red Cell Dist Width 15.4 (H) 11.5 - 14.5 % [facility] Pathology Platelet Count 222 150 - 400 [facility] 10*3/uL [facility] Differential Type Automated Diff [facility] Neutrophil 50 % [facility] Lymphocyte 34 % [facility] Monocyte 10 % [facility] Eosinophil 5 % [facility] Basophil 1 % [facility] Abs Neutrophil 2.00 1.8 - 7.0 [facility] 10*3/uL [facility] Abs Lymphocyte 1.36 1.2 - 4.0 [facility] 10*3/uL [facility] Abs Monocyte 0.39 0 - 0.8 [facility] 10*3/uL [facility] Abs Eosinophil 0.18 0 - 0.5 [facility] 10*3/uL [facility] Abs Basophil 0.04 0 - 0.2 [facility] 10*3/uL [facility] Clin Pathology Nucleated Red Blood 0 0 - 0 [facility] Cells /100{WBCs} [facility] Clin Pathology Specimen EDTA Whole Blood Performing Organization Address City/State/Zipcode Phone Number [facility] CL[facility]ICAL PATHOLOG[facility] [address] [place] [address] [facility] [address] [place] [address] Pathology Comprehensive Metabolic Panel (04/09/2019 3:15 AM EST) Albumin 3.3 (L) 3.5 - 5.2 g/dL [facility] Pathology Bilirubin, Total 0.2 <1.2 mg/dL [facility]ology Calcium 8.8 8.8 - 10.2 [facility] mg/dL [facility] Clin Pathology Chloride 105 98 - 107 mmol/L [facility]ology Creatinine 0.54 0.50 - 0.90 [facility] mg/dL [facility] Pathology Glucose 95 70 - 140 mg/dL [facility]ology Alkaline Phosphatase 57 35 - 104 U/L [facility]ology Potassium 4.2 3.4 - 5.1 [facility] mmol/L [facility] Clin Pathology Total Protein 5.0 (L) 6.4 - 8.3 g/dL [facility]ology Sodium 141 136 - 145 [facility] mmol/L [facility] Pathology AST/SGO 34 (H) <32 U/L [facility] Blood Urea Nitrogen 7 (L) 8 - 23 mg/dL [facility]ology Osmolality, Fortunato 290 275 - 300 [facility] mosm/kg [facility] BUN/Cre Ratio 13 [facility] Bicarbonate 26 22 - 29 mmol/L [facility] ALT/SGP 14 <33 U/L [facility] Anion Gap 11 8 - 15 mmol/L [facility]ology A/G Ratio 1.9 [facility] Pathology GFR Non >90 >60 [facility] Peruvian 2009 CDK-EPI mL/min/1.73m2 [facility] GFR >90 >60 [facility] 2009 CKD-EPI mL/min/1.73m2 [facility] Clin Pathology Specimen Plasma Performing Organization Address [facility] Phone Number [facility] CL[facility]ICAL PATHOLOG[facility] [address] [place] [address] [phone] [facility] [address] [place] [address] Pathology TSH (04/08/2019 3:00 PM EST) TSH 3.300 0.270 - 4.200 u[IU]/mL [facility] Pathology Specimen Plasma Performing Organization Address [facility] Phone Number [facility] [address] [place] [address] [facility] [address] [place] [address] Pathology Phosphorus Level (04/08/2019 3:00 PM EST) Phosphorus 3.4 2.5 - 4.5 mg/dL [facility] Pathology Specimen Plasma Performing Organization Address [facility] Phone Number [facility] [address] [place] [address] [phone] [facility] [address] [place] [address] Pathology Magnesium Level (04/08/2019 3:00 PM EST) Magnesium 2.0 1.6 - 2.4 mg/dL [facility] Pathology Specimen Plasma Performing Organization Address [facility] Phone Number [facility] [address] [place] [address] [phone] [facility] [address] [place] [address] Pathology Vitamin B12 (04/08/2019 3:00 PM EST) Vitamin B12 336 211 - 946 pg/ml [facility] Pathology Specimen Plasma Performing Organization Address [facility] Phone Number [facility] [address] [place] [phone] [facility] [address] [place] [address] Pathology Ethyl Alcohol Level (04/08/2019 3:00 PM EST) Ethyl Alcohol Negative Negative g/dl [facility] Specimen Plasma Performing Organization Address [facility] Phone Number [facility] CL[facility]ICAL PATHOLOGY [address] [place] [address] [facility] [address] [place] [address] Pathology Lactic Acid Level, Plasma (04/08/2019 3:00 PM EST) Lactic Acid 1.3 0.5 - 2.2 mmol/l [facility] Pathology Specimen Plasma Performing Organization Address [facility] Phone Number [facility] CLINICAL PATHOLOGY [address] [place] [address] [facility] Clin [address] [place] [address] Pathology Drugs Of Abuse, Urine (04/08/2019 3:00 PM EST) Amphetamine Negative Negative Cutoff [facility] 1000 [facility] Pathology Benzodiazepine Negative Negative Cutoff [facility] 300 [facility] Pathology Cannabinoids Urine Negative Negative Cutoff [facility] 50 [facility] Pathology Cocaine Negative Negative Cutoff [facility] 300 [facility] Pathology Methadone (Dolophine) Negative Negative Cutoff [facility] 300 [facility] Pathology Opiates Negative Negative Cutoff [facility] 300 [facility] Pathology Oxycodone Negative Negative Cutoff [facility] 100 [facility] Pathology Fentanyl Negative Negative Cutoff [facility] 1 [facility] Pathology Drug Interpretation (NOTE) [facility] Comment: Med [facility] Clin Results below the indicated cutoff (ng/mL), are reported as Pathology "Negative." Note: for medical purposes only; not valid for legal or employment testing. Specimen Urine Performing Organization Address [facility] Phone Number [facility] CLINICAL PATHOLOGY [address] [place] [address] [phone] [facility] [address] [place] [address] Pathology Comprehensive Metabolic Panel (04/08/2019 3:00 PM EST) Albumin 3.6 3.5 - 5.2 g/dL [facility] Clin Pathology Bilirubin, Total 0.2 <1.2 mg/dL [facility] Pathology Calcium 9.4 8.8 - 10.2 [facility] mg/dL Univ Clin Pathology Chloride 104 98 - 107 mmol/L [facility] Pathology Creatinine 0.61 0.50 - 0.90 [facility] mg/dL Univ Clin Pathology Glucose 104 70 - 140 mg/dL [facility] Pathology Alkaline Phosphatase 65 35 - 104 U/L [facility] Pathology Potassium 4.3 3.4 - 5.1 [facility] mmol/L [facility] Clin Pathology Total Protein 5.7 (L) 6.4 - 8.3 g/dL [facility] Clin Pathology Sodium 138 136 - 145 [facility] mmol/L Univ Clin Pathology AST/SGO 37 (H) <32 U/L [facility] Pathology Blood Urea Nitrogen 8 8 - 23 mg/dL [facility] Clin Pathology Osmolality, Fortunato 285 275 - 300 [facility] mosm/kg Univ Clin Pathology BUN/Cre Ratio 13 [facility] Pathology Bicarbonate 25 22 - 29 mmol/L [facility] Pathology ALT/SGP 15 <33 U/L [facility] Pathology Anion Gap 9 8 - 15 mmol/L [facility] Pathology A/G Ratio 1.7 [facility] Pathology GFR Non >90 >60 [facility] Peruvian 2009 CDK-EPI mL/min/1.73m2 Univ Clin Pathology GFR >90 >60 [facility] 2009 CKD-EPI mL/min/1.73m2 [facility] Clin Pathology Specimen Plasma Performing Organization Address City/State/[place] Phone Number [facility] CLINICAL PATHOLOGY [address] [place] [address] [facility] [address] [place] [address] Pathology CBC and Differential (04/08/2019 3:00 PM EST) White Blood Cell 6.2 4 - 10 [facility] 10*3/uL [facility] Clin Pathology Red Blood Cell 3.29 (L) 4.1 - 5.3 [facility] 10*6/uL Univ Clin Pathology Hemoglobin 9.9 (L) 11.5 - 15.5 [facility] g/dL Univ Clin Pathology Hematocrit 30.0 (L) 36 - 45 % [facility] Pathology Mean Cell Volume 91.1 80 - 96 fL [facility] Pathology Mean Cell Hemoglobin 30.1 27 - 33 pg [facility] Pathology Mean Cell Hgb Conc 33.1 32.0 - 36.0 [facility] g/dL [facility] Clin Pathology Red Cell Dist Width 15.5 (H) 11.5 - 14.5 % [facility] Pathology Platelet Count 253 150 - 400 [facility] 10*3/uL Univ Clin Pathology Differential Type Automated Diff [facility] Pathology Neutrophil 66 % [facility] Clin Pathology Lymphocyte 22 % [facility] Clin Pathology Monocyte 8 % [facility] Clin Pathology Eosinophil 3 % [facility] Univ Clin Pathology Basophil 1 % [facility] Pathology Abs Neutrophil 4.09 1.8 - 7.0 [facility] 10*3/uL Univ Clin Pathology Abs Lymphocyte 1.34 1.2 - 4.0 [facility] 10*3/uL Univ Clin Pathology Abs Monocyte 0.51 0 - 0.8 [facility] 10*3/uL Univ Clin Pathology Abs Eosinophil 0.16 0 - 0.5 [facility] 10*3/uL Univ Clin Pathology Abs Basophil 0.08 0 - 0.2 [facility] 10*3/uL [facility] Pathology Nucleated Red Blood 0 0 - 0 [facility] Cells /100{WBCs} [facility] Pathology Specimen EDTA Whole Blood Performing Organization Address [facility] Phone Number [facility] PATHOLOGY [address] [place] [address] [facility] [address] [place] [address] Pathology Ammonia Level (04/08/2019 3:00 PM EST) Ammonia 33 11 - 51 umol/L [facility] Pathology Specimen Plasma Performing Organization Address City/[facility] Phone Number [facility] PATHOLOGY [address] [place] [address] [facility] [address] [place] [address] Pathology POCT i-STAT Chem 8 (04/08/2019 9:17 AM EST) i-STAT Sodium 140 136 - 145 [facility] mmol/L [facility] POC i-STAT Potassium 3.6 3.4 - 5.1 [facility] mmol/L [facility] POC i-STAT Chloride 106 98 - 107 mmol/L [facility] POC i-STAT TCO2 27 22 - 29 mmol/L [facility] POC i-STAT Ionized 1.33 (H) 1.13 - 1.32 [facility] Calcium mmol/L [facility] POC i-STAT Glucose 90 70 - 140 mg/dL [facility] POC i-STAT BUN 5 (L) 8 - 23 mg/dL [facility] POC i-STAT Creatinine 0.5 0.50 - 0.90 [facility] mg/dL [facility] POC i-STAT Hematocrit 31 (L) 36 - 45 % [facility] POC i-STAT Hemoglobin 10.5 (L) 11.5 - 15.5 [facility] g/dL [facility] POC Specimen Whole Blood Performing Organization Address City/[facility] Phone Number POINT OF CARE TEST [address] [place], [place] [phone] [place] [address] POC [address] [place] [address] POCT i-STAT VBG Lactic Acid (04/08/2019 9:12 AM EST) i-STAT Venous pH 7.39 7.36 - 7.41 [facility] POC i-STAT Venous PCO2 41 40 - 45 mmHg [facility] POC i-STAT Venous PO2 52 mmHg [facility] POC i-STAT Venous Base 0 mmol/L [facility] Excess [facility] POC i-STAT Venous SO2 86 (H) 60 - 85 % [facility] POC i-STAT Venous Lactic 0.6 0.5 - 2.2 mmol/L [facility] Acid [facility] POC i-STAT Venous Total 26 mmol/L [address] POC Specimen Whole Blood Performing Organization Address [facility] Phone Number POINT OF CARE TEST [address] [place], [place] [id number] [place] [address] POC [address] [place] [address] Folate (04/08/2019 9:10 AM EST) Folate 19.90 >4.77 ng/mL [facility] Clin Pathology Specimen Serum Performing Organization Address City/[facility] Phone Number [facility] CLINICAL PATHOLOGY [address] [place] [address] [facility] [address] [place] [address] Pathology Hepatitis C antibody (04/08/2019 9:10 AM EST) Hepatitis C Ab Reactive (A)Comment: Non Reactive [facility] Past or current [facility] Hepatitis C Pathology infection. Specimen forwarded to reference laboratory for quantitative HCV RNA testing. Specimen Serum Performing Organization Address [facility] Phone Number [facility] CLINICAL PATHOLOGY [address] [place] [address] [phone] [facility] Clin [address] [place] [address] Pathology POCT i-STAT Troponin (04/08/2019 9:10 AM EST) i-STAT Troponin I 0.03 0.00 - 0.08 ng/mL [facility] POC Specimen Whole Blood Performing Organization Address [facility] Phone Number POINT OF CARE TEST [address] [place], [place] [id number] [place] [address] POC [address] [place] [address] 1ED EKG Interpretation (04/08/2019 8:10 AM EST) Narrative Performed At Antonio Rodríguez MD EXTERNAL NON-INTERFACED LAB 04/08/2019 8:11 AM 1ED EKG Interpretation Date/Time: 04/08/2019 8:10 AM Performed by: Antonio Rodríguez MD Authorized by: Antonio Rodríguez MD ECG reviewed by ED Physician in the absence of a bundle cutter: yes Previous ECG: Previous ECG: Unavailable Interpretation: Interpretation: abnormal Rate: ECG rate: 87 ECG rate assessment: normal Rhythm: Rhythm: sinus rhythm Ectopy: Ectopy comment: Premature SV complexes QRS: QRS axis: Normal QRS intervals: Normal Conduction: Conduction: normal ST segments: ST segments: Normal T waves: T waves: normal Performing Organization Address [facility] Phone Number EXTERNAL NON-INTERFACED LAB EKG 12-LEAD - CMAXX REPORT (04/08/2019 8:03 AM EST) Narrative Performed At EKG 12 lead (04/08/2019 8:03 AM EST) Specimen Narrative Performed At Ventricular Rate: [facility] EKG 87 BPM Atrial Rate: 87 BPM P-R Interval: 162 ms QRS Duration: 82 ms Q-T Interval: 386 ms QTC Calculation(Bazett): 464 ms P [place]: 62 degrees R [place]: 9 degrees T [place]: 35 degrees : SINUS RHYTHM WITH PREMATURE SUPRAVENTRICULAR COMPLEXES : OTHERWISE NORMAL ECG : NO PREVIOUS ECGS AVAILABLE : Confirmed by FUENTES LOPEZ ([id number]) on 04/08/2019 10:27:14 : AM Procedure Note Interface, Received Via [employer] - 04/08/2019 10:27 AM EST Ventricular Rate: 87 BPM Atrial Rate: 87 BPM P-R Interval: 162 ms QRS Duration: 82 ms Q-T Interval: 386 ms QTC Calculation(Bazett): 464 ms P [place]: 62 degrees R [place]: 9 degrees T [place]: 35 degrees : SINUS RHYTHM WITH PREMATURE SUPRAVENTRICULAR COMPLEXES : OTHERWISE NORMAL ECG : NO PREVIOUS ECGS AVAILABLE : Confirmed by FUENTES LOPEZ ([id number]) on 04/08/2019 10:27:14 : AM Performing Organization Address City/State/Zipcode Phone Number U EKG EKG 12-LEAD - CMAXX REPORT (04/08/2019 8:03 AM EST) Narrative Performed At EKG 12-LEAD - CMAXX REPORT (04/08/2019 8:03 AM EST) Narrative Performed At documented in this encounter Visit Diagnoses Diagnosis Altered mental status - Primary Seizure Other convulsions Substance abuse Other, mixed, or unspecified nondependent drug abuse, unspecified Seizures Other convulsions Alcohol abuse Alcohol abuse, unspecified documented in this encounter Administered Medications Medication Order MAR Action Action Date Dose Rate Site acetaminophen (TYLENOL) tablet 650 mg 650 mg, Oral, Every 6 hours PRN, Mild Pain (Pain Scale Score 1-3), Fever, Mild to Moderate Pain, Starting Arlene 04/08/19 at 1752, For 30 days, Maximum daily dose of acetaminophen is 3,000 mg from all sources in 24 hours., buprenorphine-naloxone (SUBOXONE) 12-3 MG Given 04/09/2019 9:48 AM EST 1 Film per sublingual film 1 Film 1 Film (12 mg of buprenorphine), Sublingual, 2 Times Daily, First dose on Arlene 04/08/19 at 2100, For 3 days Given 04/08/2019 9:30 PM EST 1 Film levETIRAcetam (KEPPRA XR) 24 hr tablet 500 Given 04/09/2019 9:48 AM EST 500 mg mg 500 mg, Oral, 2 Times Daily, First dose on Arlene 04/08/19 at 2100, For 30 days Given 04/08/2019 9:30 PM EST 500 mg sodium chloride 0.9 % 1,000 mL with MVI New Bag 04/08/2019 9:58 PM EST 100 mL/hr adult 10 mL, folic acid 1 mg, magnesium sulfate 16 mEq, thiamine (B-1) 100 mg infusion at 100 mL/hr, Intravenous, Continuous, Starting Arlene 04/08/19 at 1800, For 1 day thiamine (B-1) tablet 500 mg Given 04/08/2019 11:49 PM EST 500 mg 500 mg, Oral, Every 8 hours, First dose (after last modification) on Fri04/09/19 at 0000, For 3 days Medication Order MAR Action Action Date Dose Rate Site acetaminophen (TYLENOL) tablet Given 04/08/2019 1:01 PM EST 650 mg 650 mg 650 mg, Oral, Once, Arlene 04/08/19 at 1300, For 1 dose, Maximum daily dose of acetaminophen is 3000 mg from all sources in 24 hours., levETIRAcetam (KEPPRA) in NaCl New Bag 04/08/2019 1:06 PM EST 1,000 mg 400 mL/hr 0.9 % IVPB (premix) 1,000 mg 1,000 mg, Intravenous, at 400 mL/hr, Once, Arlene 04/08/19 at 1115, For 1 dose documented in this encounter
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
== END 2019-05-10 12:41 | disposition home or self-care (01) ==
LOC: ED 11:20
DX: F10.129 Alcohol abuse with intoxication, unspecified (principal); Y90.8 Blood alcohol level of 240 mg/100 ml or more; I10 Essential (primary) hypertension; F41.9 Anxiety disorder, unspecified; F32.9 Major depressive disorder, single episode, unspecified; Z79.82 Long term (current) use of aspirin; Z79.899 Other long term (current) drug therapy; Z96.643 Presence of artificial hip joint, bilateral; Z88.5 Allergy status to narcotic agent; Z91.041 Radiographic dye allergy status; F17.210 Nicotine dependence, cigarettes, uncomplicated
CPT/HCPCS: 36415; 80320; 99281; G0480

== ENCOUNTER 2019-06-17 09:38 | Inpatient (IN) | payer MEDICARE, OTHER ==
[2019-06-17] MEDS ORDERED: Thiamine 100 MG/ML 2 ml VIAL 100 MG, Folic Acid 1 MG, Multiple Vitamin IV ADULT 10 ML i... IV ONE (09:50)
[2019-06-17 10:21] LABS: Urine Appearance Cloudy; Urine Bilirubin Negative (Negative); Urine Blood 1+ (Negative); Urine Color Amber; Urine Glucose Negative (Negative); Urine Ketones Negative (Negative); Urine Nitrite Negative (Negative); Urine Protein 1+(30 mg/dL) (Negative); Urine Specific Gravity 1.011 (1.010-1.030); Urine Urobilinogen Negative (Negative)
[2019-06-17 10:24] LABS: Urine Bacteria Absent (Absent); Urine Red Blood Cell 2+(6-10/hpf) (Absent); Urine White Blood Cell 3+(>20/hpf) (Absent)
[2019-06-17 10:25] LABS: Hematocrit 35 % (35-47); Mean Corpuscular HGB Conc 34 g/dL (31-36); Mean Corpuscular Hemoglobin 30 pg (27-31); Mean Corpuscular Volume 89 fL (80-97); Red Blood Count 3.94 10^6 /uL (3.70-4.87); Red Cell Distribution Width 17 % (10-15); White Blood Count 7.8 10^3/uL (3.5-10.8)
[2019-06-17 10:33] LABS: ALT 51 U/L (7-52); Albumin 2.9 g/dL (3.2-5.2); Alkaline Phosphatase 277 U/L (34-104); BUN/Creatinine Ratio 37.5 (8-20); Blood Urea Nitrogen 66 mg/dL (6-24); CO2 Carbon Dioxide 26 mmol/L (22-32); Calcium 11.9 mg/dL (8.6-10.3); Chloride 90 mmol/L (101-111); EGFR African American 35.3 (>60); EGFR Non-African American 29.2 (>60); Globulin 2.8 g/dL (2-4); Glucose 82 mg/dL (70-100); Sodium 124 mmol/L (135-145); Total Protein 5.7 g/dL (6.4-8.9)
[2019-06-17 10:35] LABS: Anion Gap 8 mmol/L (2-11); Troponin I 0.03 ng/mL (<0.03)
[2019-06-17 10:44] LABS: Urine Benzodiazepine Screen None Detected (None Detect); Urine Opiates Screen None Detected (None Detect)
[2019-06-17 10:51] LABS: INR 1.1 (0.82-1.09)
[2019-06-17 10:53] LABS: Acetaminophen < 15 mcg/mL; Alcohol, S < 10 mg/dL (<10)
[2019-06-17] MEDS ORDERED: NS 0.9% 1000 ml BAG 1,000 ML IV ONE ×2 (11:25→16:11)
[2019-06-17 11:42] LABS: Magnesium 1.9 mg/dL (1.9-2.7); Potassium Redraw 3.5 mmol/L (3.5-5.0)
[2019-06-17 12:00] LABS: Tear Drop Cells 1+
[2019-06-17 12:02] LABS: ABS Eosinophils 0.1 10^3/ul (0-0.6); ABS Lymphocytes 0.6 10^3/ul (1.0-4.8); ABS Monocytes 0.2 10^3/ul (0-0.8); Eosinophil % 0.9 %; Lymphocyte % 7.9 %; Mean Platelet Volume 11.1 fL (7.4-10.4); Nucleated Red Blood Cells % 0.1; Platelet Count 49 10^3/uL (150-450)
[2019-06-17] MEDS ORDERED: Thiamine 100 MG/ML 2 ml VIAL 500 MG in NS 0.9% 250 ml 250 ML IV ONE (12:49)
[2019-06-17] MEDS ORDERED: Thiamine 100 MG/ML 2 ml VIAL (200 mg) ONE (14:33)
[2019-06-17] MEDS ORDERED: Thiamine 100 MG/ML 2 ml VIAL 500 MG in NS 0.9% 250 ml 250 ML IV SCH (15:00)
[2019-06-17] MEDS ORDERED: LORazepam 2 mg VIAL 1 ml IV PUSH SCH (15:00)
[2019-06-17] MEDS ORDERED: Lorazepam PYXIS KEY PRN (15:09)
[2019-06-17 16:29] LABS: Troponin I 0.08 ng/mL (<0.03)
[2019-06-17] MEDS: NS 0.9% 1000 ml BAG 1,000 ML IV SCH (17:40)
[2019-06-17] MEDS ORDERED: Buprenorp/Nalox 4-1 MG FILM SL FILM SCH (21:00)
[2019-06-17] MEDS: Thiamine 100 MG/ML 2 ml VIAL 500 MG in NS 0.9% 250 ml 250 ML IV SCH (23:08)
[2019-06-17 23:25] LABS: Troponin I 0.03 ng/mL (<0.03)
[2019-06-18] MEDS: NS 0.9% 1000 ml BAG 1,000 ML IV SCH ×4 (04:41→20:08)
[2019-06-18] MEDS: Thiamine 100 MG/ML 2 ml VIAL 500 MG in NS 0.9% 250 ml 250 ML IV SCH ×3 (06:58→22:58)
[2019-06-18] MEDS ORDERED: NS 0.9% 1000 ml BAG 1,000 ML IV ONE ×2 (08:51→22:14)
[2019-06-18] MEDS ORDERED: LACOSAMIDE 200 MG/20 ML IV SCH (09:00)
[2019-06-18 09:14] LABS: INR 1.32 (0.82-1.09)
[2019-06-18 09:26] LABS: Albumin 2.1 g/dL (3.2-5.2); BUN/Creatinine Ratio 40.4 (8-20); Calcium 9.7 mg/dL (8.6-10.3); EGFR African American 43.8 (>60); EGFR Non-African American 36.2 (>60); Globulin 2.2 g/dL (2-4); Hematocrit 26 % (35-47); Hemoglobin 8.9 g/dL (12.0-16.0); Mean Corpuscular HGB Conc 34 g/dL (31-36); Mean Corpuscular Hemoglobin 30 pg (27-31); Mean Corpuscular Volume 89 fL (80-97); Mean Platelet Volume 8.7 fL (7.4-10.4); Platelet Count 16 10^3/uL (150-450); Potassium 3.3 mmol/L (3.5-5.0); Red Blood Count 2.96 10^6 /uL (3.70-4.87); Red Cell Distribution Width 16 % (10-15); Total Bilirubin 3.6 mg/dL (0.2-1.0); Total Protein 4.3 g/dL (6.4-8.9); White Blood Count 13.7 10^3/uL (3.5-10.8)
[2019-06-18] MEDS ORDERED: KCL 20 MEQ/100 ML IVPREMIX 20 MEQ/100 ML BAG IV ONE (09:32)
[2019-06-18] MEDS: Multivitamins/Minerals TAB PO SCH (09:57)
[2019-06-18] MEDS ORDERED: ACYCLOVIR IVPB SCH (10:00)
[2019-06-18] MEDS ORDERED: NS 0.9% IVPB SCH (10:00)
[2019-06-18 10:02] LABS: ABS Eosinophils 0.5 10^3/ul (0-0.6); ABS Lymphocytes 0.4 10^3/ul (1.0-4.8); ABS Monocytes 0.6 10^3/ul (0-0.8); Eosinophil % 3.7 %; Lymphocyte % 2.6 %
[2019-06-18 10:28] LABS: LDH 261 U/L (140-271)
[2019-06-18 10:34] LABS: Fibrinogen 430.6 mg/dL (110.8-404.3)
[2019-06-18] MEDS ORDERED: Acyclovir IV 600 MG in NS 0.9% 100 ml BAG 100 ML IVPB SCH (10:40)
[2019-06-18 10:49] LABS: Corrected Retic Count 0.5 % (0.5-1.5); Hematocrit for Retic CNT 27 % (35-47); Immature Retic Fraction 0.18; RBC Retic Count 3.01 10^6/uL (3.70-4.87)
[2019-06-18 11:18] LABS: Indirect Bilirubin 0.8 mg/dL (0.3-1.0)
[2019-06-18] MEDS: Acyclovir IV 600 MG in NS 0.9% 100 ml BAG 100 ML IVPB SCH (11:49)
[2019-06-18] MEDS ORDERED: Lorazepam PYXIS KEY PRN (12:34)
[2019-06-18] MEDS ORDERED: LORazepam 2 mg VIAL 1 ml IV PUSH ONE (12:34)
[2019-06-18] MEDS ORDERED: Vancomycin per Pharmacy 1 EA NOTE FOLLOW UP PRN (15:12)
[2019-06-18] MEDS ORDERED: Vancomycin 1,000 MG in NS 0.9% 250 ml 250 ML IV ONE (15:30)
[2019-06-18 16:38] LABS: Hematocrit 25 % (35-47); Hemoglobin 8.7 g/dL (12.0-16.0); Mean Corpuscular HGB Conc 34 g/dL (31-36); Mean Corpuscular Hemoglobin 30 pg (27-31); Mean Corpuscular Volume 89 fL (80-97); Mean Platelet Volume 8.8 fL (7.4-10.4); Platelet Count 15 10^3/uL (150-450); Red Blood Count 2.85 10^6 /uL (3.70-4.87); Red Cell Distribution Width 16 % (10-15); White Blood Count 14.2 10^3/uL (3.5-10.8)
[2019-06-18] MEDS: Ampicillin ADVAN 2 GM in NS 0.9% 100 ml BAG 100 ML IVPB SCH ×2 (17:02→22:58)
[2019-06-18] MEDS ORDERED: cefTRIAXone 2 GM ADDV.VIAL 2 GM in NS 0.9% 100 ml BAG 100 ML IVPB SCH (18:00)
[2019-06-18] MEDS: Dexmedetomidine 1,000 MCG in NS 0.9% 250 ml 240 ML IV SCH (20:07)
[2019-06-18] MEDS: cefTRIAXone 2 GM ADDV.VIAL 2 GM in NS 0.9% 100 ml BAG 100 ML IVPB SCH (21:19)
[2019-06-18 21:32] LABS: Urine Appearance Cloudy; Urine Bilirubin Negative (Negative); Urine Blood 1+ (Negative); Urine Color Amber; Urine Glucose Negative (Negative); Urine Ketones Negative (Negative); Urine Nitrite Positive (Negative); Urine Protein 1+(30 mg/dL) (Negative); Urine Specific Gravity 1.013 (1.010-1.030); Urine Urobilinogen Negative (Negative)
[2019-06-18] MEDS: NS 0.9% IV ONE ×3 (21:41→22:21)
[2019-06-18] MEDS ORDERED: Norepinephrine 16MCG/ML IVPRE 4,000 MCG/250 ML BAG IV ONE (21:46)
[2019-06-18 21:48] LABS: Urine Bacteria 1+ (Absent); Urine Red Blood Cell 2+(6-10/hpf) (Absent); Urine White Blood Cell 3+(>20/hpf) (Absent)
[2019-06-18] MEDS ORDERED: D5W 1/2 NS KCl 20 meq 1000 ml 1,000 ML IV SCH (22:00)
[2019-06-18] MEDS: LaCOSAMide VIAL 100 MG in NS 0.9% 50 ML 50 ML IVPB SCH (22:25)
[2019-06-18] MEDS: Norepinephrine 16MCG/ML IVPRE 4,000 MCG/250 ML BAG IV SCH (22:25)
[2019-06-19] MEDS: Acyclovir IV 600 MG in NS 0.9% 100 ml BAG 100 ML IVPB SCH ×2 (00:27→14:01)
[2019-06-19] MEDS: Famotidine IV 10 MG/ML 2 ml VIAL (20 mg) IV SLOW PU SCH ×2 (00:27→21:13)
[2019-06-19] MEDS ORDERED: LORazepam 2 mg VIAL 1 ml IV PUSH ONE (02:05)
[2019-06-19] MEDS ORDERED: Lorazepam PYXIS KEY PRN (02:05)
[2019-06-19] MEDS ORDERED: LORazepam 2 mg VIAL 1 ml ONE (02:10)
[2019-06-19] MEDS ORDERED: Lorazepam PYXIS KEY ONE (02:10)
[2019-06-19] MEDS: Ampicillin ADVAN 2 GM in NS 0.9% 100 ml BAG 100 ML IVPB SCH ×2 (04:58→10:20)
[2019-06-19] MEDS: cefTRIAXone 2 GM ADDV.VIAL 2 GM in NS 0.9% 100 ml BAG 100 ML IVPB SCH ×2 (04:58→18:15)
[2019-06-19 05:29] LABS: Hematocrit 29 % (35-47); Hemoglobin 9.5 g/dL (12.0-16.0); Mean Corpuscular HGB Conc 33 g/dL (31-36); Mean Corpuscular Hemoglobin 30 pg (27-31); Mean Corpuscular Volume 90 fL (80-97); Mean Platelet Volume 8.7 fL (7.4-10.4); Platelet Count 19 10^3/uL (150-450); Red Cell Distribution Width 16 % (10-15); White Blood Count 16.3 10^3/uL (3.5-10.8)
[2019-06-19 05:41] LABS: ALT 49 U/L (7-52); AST 130 U/L (13-39); Albumin 2.2 g/dL (3.2-5.2); Albumin/Globulin Ratio 0.9 (1-3); Alkaline Phosphatase 251 U/L (34-104); BUN/Creatinine Ratio 40.5 (8-20); Blood Urea Nitrogen 53 mg/dL (6-24); CO2 Carbon Dioxide 15 mmol/L (22-32); Calcium 9.1 mg/dL (8.6-10.3); EGFR African American 49.6 (>60); Globulin 2.4 g/dL (2-4); Glucose 98 mg/dL (70-100); Magnesium 1.8 mg/dL (1.9-2.7); Potassium 3.1 mmol/L (3.5-5.0); Sodium 139 mmol/L (135-145); Total Protein 4.6 g/dL (6.4-8.9)
[2019-06-19 05:48] LABS: Anion Gap 10 mmol/L (2-11); Chloride 114 mmol/L (101-111); Phosphorus < 1.0 mg/dL (2.5-5.0)
[2019-06-19 05:56] LABS: TSH (Thyroid Stimulating Horm) 1.41 mcIU/mL (0.34-5.60)
[2019-06-19] MEDS: Thiamine 100 MG/ML 2 ml VIAL 500 MG in NS 0.9% 250 ml 250 ML IV SCH ×3 (06:10→21:14)
[2019-06-19] MEDS: Vancomycin 500 MG in NS 0.9% 250 ml 250 ML IVPB SCH ×2 (06:10→18:25)
[2019-06-19] MEDS ORDERED: Potassium Phosphate IV 30 MMOLE in NS 0.9% 250 ml 250 ML IVPB ONE (08:28)
[2019-06-19] MEDS: Multivitamins/Minerals TAB PO SCH (09:05)
[2019-06-19] MEDS: LaCOSAMide VIAL 100 MG in NS 0.9% 50 ML 50 ML IVPB SCH (15:23)
[2019-06-19] MEDS: Norepinephrine 16MCG/ML IVPRE 4,000 MCG/250 ML BAG IV SCH ×2 (17:01→23:40)
[2019-06-19] MEDS ORDERED: Rocuronium 50 mg VIAL 10 mg/ml 5 ml VIAL (50 mg) IV ONE (17:21)
[2019-06-19] MEDS ORDERED: Etomidate 20 mg/10 ml 2 MG/ML 10 ml VIAL IV ONE (17:21)
[2019-06-19] MEDS ORDERED: Rocuronium 50 mg VIAL 10 mg/ml 5 ml VIAL (50 mg) ONE ×3 (17:22→17:36)
[2019-06-19 17:26] LABS: BUN/Creatinine Ratio 40.2 (8-20); Calcium 8.4 mg/dL (8.6-10.3); EGFR African American 51.4 (>60); EGFR Non-African American 42.5 (>60); Phosphorus 3.7 mg/dL (2.5-5.0); Potassium 3.8 mmol/L (3.5-5.0)
[2019-06-19] MEDS ORDERED: Etomidate 40 mg/20 ml (2 MG/ML) 20 ml VIAL (40 mg) ONE (17:35)
[2019-06-19] MEDS: Chlorhexidine MOUTHWASH 0.12% 15 ML UDC SWISH SPIT SCH ×2 (18:25→21:14)
[2019-06-19 19:47] LABS: Lacosamide 0.8 mcg/mL (1.0 - 10.0)
[2019-06-19] MEDS: NS 0.9% 1000 ml BAG 1,000 ML IV SCH (21:42)
[2019-06-19] MEDS: Dexmedetomidine 1,000 MCG in NS 0.9% 250 ml 240 ML IV SCH (22:16)
[2019-06-20] MEDS: Norepinephrine 16MCG/ML IVPRE 4,000 MCG/250 ML BAG IV SCH ×9 (01:37→21:35)
[2019-06-20] MEDS: Chlorhexidine MOUTHWASH 0.12% 15 ML UDC SWISH SPIT SCH ×5 (01:38→20:54)
[2019-06-20] MEDS: LaCOSAMide VIAL 100 MG in NS 0.9% 50 ML 50 ML IVPB SCH ×2 (01:56→15:48)
[2019-06-20] MEDS: NS 0.9% 1000 ml BAG 1,000 ML IV SCH ×4 (02:58→22:06)
[2019-06-20 04:08] LABS: Hematocrit 30 % (35-47); Hemoglobin 9.7 g/dL (12.0-16.0); Mean Corpuscular HGB Conc 32 g/dL (31-36); Mean Corpuscular Hemoglobin 30 pg (27-31); Mean Corpuscular Volume 92 fL (80-97); Platelet Count 57 10^3/uL (150-450); Red Blood Count 3.27 10^6 /uL (3.70-4.87); Red Cell Distribution Width 17 % (10-15); White Blood Count 32.2 10^3/uL (3.5-10.8)
[2019-06-20 04:22] LABS: Albumin 2.2 g/dL (3.2-5.2); Albumin/Globulin Ratio 0.8 (1-3); BUN/Creatinine Ratio 37.2 (8-20); C Reactive Protein 186.2 mg/L (<8.01); Calcium 7.9 mg/dL (8.6-10.3); EGFR African American 47.1 (>60); EGFR Non-African American 38.9 (>60); Globulin 2.7 g/dL (2-4); Magnesium 1.9 mg/dL (1.9-2.7); Phosphorus 4.6 mg/dL (2.5-5.0); Potassium 4.2 mmol/L (3.5-5.0); Total Bilirubin 6.5 mg/dL (0.2-1.0); Total Protein 4.9 g/dL (6.4-8.9)
[2019-06-20 04:29] LABS: Vancomycin Trough 12.2 mcg/mL
[2019-06-20 04:34] LABS: ABS Basophils 0.2 10^3/ul (0-0.2); ABS Eosinophils 0.5 10^3/ul (0-0.6); ABS Lymphocytes 1.6 10^3/ul (1.0-4.8); ABS Monocytes 1.5 10^3/ul (0-0.8); Eosinophil % 1.7 %
[2019-06-20] MEDS: Thiamine 100 MG/ML 2 ml VIAL 500 MG in NS 0.9% 250 ml 250 ML IV SCH ×3 (05:25→22:13)
[2019-06-20] MEDS: cefTRIAXone 2 GM ADDV.VIAL 2 GM in NS 0.9% 100 ml BAG 100 ML IVPB SCH ×2 (05:29→18:44)
[2019-06-20] MEDS ORDERED: Vancomycin Trough Check NOTE FOLLOW UP ONE (05:30)
[2019-06-20] MEDS: Propofol 10 mg/ml 100 ML BTL 100 ML IV SCH ×3 (05:43→21:12)
[2019-06-20] MEDS: Vancomycin 500 MG in NS 0.9% 250 ml 250 ML IVPB SCH (06:19)
[2019-06-20] MEDS ORDERED: Acetylcysteine INHALATION SOL 200 MG/ML NEB.SOLN 10 ML INH ONE (09:12)
[2019-06-20] MEDS ORDERED: Acetylcysteine INHALATION SOL 200 MG/ML NEB.SOLN 10 ML ONE (09:14)
[2019-06-20] MEDS ORDERED: fentaNYL 100 mcg/2 ml 50 MCG/ML VIAL ONE (09:25)
[2019-06-20] MEDS: Multivitamins/Minerals TAB PO SCH (10:05)
[2019-06-20] MEDS ORDERED: Lactulose 30 ml UDC PO ONE (12:29)
[2019-06-20] MEDS: Vancomycin 750 MG in NS 0.9% 250 ml 250 ML IVPB SCH (14:49)
[2019-06-20] MEDS: Acetylcysteine INHALATION SOL 200 MG/ML NEB.SOLN 10 ML INH SCH (19:24)
[2019-06-20 20:04] LABS: Hematocrit 28 % (35-47); Hemoglobin 8.8 g/dL (12.0-16.0); Mean Corpuscular HGB Conc 32 g/dL (31-36); Mean Corpuscular Hemoglobin 30 pg (27-31); Mean Corpuscular Volume 92 fL (80-97); Red Cell Distribution Width 17 % (10-15); White Blood Count 22.2 10^3/uL (3.5-10.8)
[2019-06-20 20:10] LABS: Albumin 1.9 g/dL (3.2-5.2); Albumin/Globulin Ratio 0.8 (1-3); BUN/Creatinine Ratio 35.6 (8-20); Calcium 7.4 mg/dL (8.6-10.3); EGFR African American 47.9 (>60); EGFR Non-African American 39.6 (>60); Globulin 2.4 g/dL (2-4); Potassium 3.8 mmol/L (3.5-5.0); Total Bilirubin 6.8 mg/dL (0.2-1.0); Total Protein 4.3 g/dL (6.4-8.9)
[2019-06-20] MEDS: Famotidine IV 10 MG/ML 2 ml VIAL (20 mg) IV SLOW PU SCH (20:54)
[2019-06-20 21:07] LABS: ABS Eosinophils 0.3 10^3/ul (0-0.6); ABS Monocytes 0.9 10^3/ul (0-0.8); Eosinophil % 1.4 %; Lymphocyte % 4.4 %
[2019-06-20 21:23] LABS: Platelet Count 60 10^3/uL (150-450)
[2019-06-21] MEDS: Chlorhexidine MOUTHWASH 0.12% 15 ML UDC SWISH SPIT SCH ×6 (00:14→21:01)
[2019-06-21] MEDS: [UNRECOGNIZED DRUG - OTHER] IV SCH ×3 (02:04→22:05)
[2019-06-21] MEDS: NOREPINEPHRINE IV SCH ×3 (02:04→22:05)
[2019-06-21] MEDS: NS 0.9% IV SCH ×3 (02:04→22:05)
[2019-06-21] MEDS: LaCOSAMide VIAL 100 MG in NS 0.9% 50 ML 50 ML IVPB SCH ×2 (02:04→16:18)
[2019-06-21] MEDS ORDERED: Vasopressin 100 UNITS in D5W 250 ml BAG 245 ML IV SCH (02:45)
[2019-06-21] MEDS: Vancomycin 750 MG in NS 0.9% 250 ml 250 ML IVPB SCH ×2 (03:09→13:18)
[2019-06-21] MEDS: NS 0.9% 1000 ml BAG 1,000 ML IV SCH (03:45)
[2019-06-21 04:31] LABS: ABS Basophils 0.2 10^3/ul (0-0.2); ABS Eosinophils 0.6 10^3/ul (0-0.6); ABS Lymphocytes 2.2 10^3/ul (1.0-4.8); ABS Monocytes 0.9 10^3/ul (0-0.8); Eosinophil % 2.4 %; Hematocrit 29 % (35-47); Lymphocyte % 8.6 %; Mean Corpuscular HGB Conc 32 g/dL (31-36); Mean Corpuscular Hemoglobin 30 pg (27-31); Mean Corpuscular Volume 93 fL (80-97); Mean Platelet Volume 9.3 fL (7.4-10.4); Platelet Count 58 10^3/uL (150-450); Red Blood Count 3.06 10^6 /uL (3.70-4.87); Red Cell Distribution Width 18 % (10-15); White Blood Count 26.2 10^3/uL (3.5-10.8)
[2019-06-21 04:46] LABS: Albumin 1.9 g/dL (3.2-5.2); Albumin/Globulin Ratio 0.8 (1-3); BUN/Creatinine Ratio 34.6 (8-20); Calcium 7.2 mg/dL (8.6-10.3); EGFR African American 50.1 (>60); EGFR Non-African American 41.4 (>60); Globulin 2.5 g/dL (2-4); Magnesium 1.6 mg/dL (1.9-2.7); Phosphorus 4.4 mg/dL (2.5-5.0); Total Bilirubin 8.4 mg/dL (0.2-1.0); Total Protein 4.4 g/dL (6.4-8.9)
[2019-06-21] MEDS ORDERED: Sodium Bicarbonate 8.4% VIAL 1 MEQ/ML 50 ml VIAL (50 meq) IV ONE (05:16)
[2019-06-21] MEDS ORDERED: Lactated Ringers 1000 ml BAG 1,000 ML IV SCH (06:00)
[2019-06-21] MEDS: Thiamine 100 MG/ML 2 ml VIAL 500 MG in NS 0.9% 250 ml 250 ML IV SCH ×2 (06:23→14:44)
[2019-06-21] MEDS ORDERED: Sodium Bicarb 8.4% Vial 50 ML 150 MEQ in D5W 1000 ml BAG 850 ML IV SCH (07:00)
[2019-06-21] MEDS: Multivitamins/Minerals TAB PO SCH (08:04)
[2019-06-21] MEDS: Acetylcysteine INHALATION SOL 200 MG/ML NEB.SOLN 10 ML INH SCH ×2 (08:10→19:47)
[2019-06-21] MEDS: cefTRIAXone 2 GM ADDV.VIAL 2 GM in NS 0.9% 100 ml BAG 100 ML IVPB SCH ×2 (08:33→16:53)
[2019-06-21] MEDS: Propofol 10 mg/ml 100 ML BTL 100 ML IV SCH ×2 (08:42→16:09)
[2019-06-21 11:01] LABS: Lacosamide <0.5 mcg/mL (1.0 - 10.0)
[2019-06-21 11:23] LABS: BUN/Creatinine Ratio 31.9 (8-20); Calcium 7.1 mg/dL (8.6-10.3); EGFR African American 46.7 (>60); EGFR Non-African American 38.6 (>60); Potassium 3.8 mmol/L (3.5-5.0)
[2019-06-21] MEDS: Dexmedetomidine 1,000 MCG in NS 0.9% 250 ml 240 ML IV SCH (13:18)
[2019-06-21] MEDS: Lactulose 30 ml UDC NG TUBE SCH ×2 (13:19→21:01)
[2019-06-21] MEDS ORDERED: Propofol 10 MG/ML 20 ML BTL ONE (15:36)
[2019-06-21 15:39] LABS: Buprenorphine 592.9 ng/mL; Norbuprenorphine 1282.2 ng/mL
[2019-06-21] MEDS: Propofol* 20 ML VIAL - FOR IV LINE PRIMING ONLY SCH (16:48)
[2019-06-21] MEDS ORDERED: Magnesium Sulfate 2 gm BAG 2 GM/50 ML BAG IVPB ONE (16:50)
[2019-06-21] MEDS: Famotidine IV 10 MG/ML 2 ml VIAL (20 mg) IV SLOW PU SCH (21:02)
[2019-06-21] MEDS: Albuterol 2.5mg/3 ml (0.083%) NEB.SOLN INH SCH (23:09)
[2019-06-22] MEDS: Chlorhexidine MOUTHWASH 0.12% 15 ML UDC SWISH SPIT SCH ×7 (00:44→20:24)
[2019-06-22] MEDS: LaCOSAMide VIAL 100 MG in NS 0.9% 50 ML 50 ML IVPB SCH ×2 (01:57→14:58)
[2019-06-22] MEDS: Vancomycin 750 MG in NS 0.9% 250 ml 250 ML IVPB SCH (02:34)
[2019-06-22] MEDS: Propofol 10 mg/ml 100 ML BTL 100 ML IV SCH ×2 (03:10→12:42)
[2019-06-22] MEDS: Lactulose 30 ml UDC NG TUBE SCH ×3 (05:50→20:24)
[2019-06-22] MEDS: cefTRIAXone 2 GM ADDV.VIAL 2 GM in NS 0.9% 100 ml BAG 100 ML IVPB SCH ×2 (06:16→16:32)
[2019-06-22] MEDS: Propofol* 20 ML VIAL - FOR IV LINE PRIMING ONLY SCH ×2 (06:16→16:35)
[2019-06-22 06:54] LABS: Hematocrit 25 % (35-47); Hemoglobin 7.9 g/dL (12.0-16.0); Mean Corpuscular HGB Conc 32 g/dL (31-36); Mean Corpuscular Hemoglobin 30 pg (27-31); Mean Corpuscular Volume 94 fL (80-97); Mean Platelet Volume 9.8 fL (7.4-10.4); Platelet Count 70 10^3/uL (150-450); Red Blood Count 2.62 10^6 /uL (3.70-4.87); Red Cell Distribution Width 19 % (10-15); White Blood Count 22.3 10^3/uL (3.5-10.8)
[2019-06-22 06:58] LABS: INR 1.48 (0.82-1.09)
[2019-06-22] MEDS: Acetylcysteine INHALATION SOL 200 MG/ML NEB.SOLN 10 ML INH SCH ×2 (07:04→19:10)
[2019-06-22] MEDS: Albuterol 2.5mg/3 ml (0.083%) NEB.SOLN INH SCH ×2 (07:04→19:09)
[2019-06-22 07:26] LABS: Albumin 1.8 g/dL (3.2-5.2); Albumin/Globulin Ratio 0.7 (1-3); BUN/Creatinine Ratio 30.8 (8-20); Calcium 6.9 mg/dL (8.6-10.3); EGFR African American 43.8 (>60); EGFR Non-African American 36.2 (>60); Globulin 2.5 g/dL (2-4); Magnesium 2.1 mg/dL (1.9-2.7); Phosphorus 5.3 mg/dL (2.5-5.0); Potassium 4.1 mmol/L (3.5-5.0); Total Bilirubin 8.5 mg/dL (0.2-1.0); Total Protein 4.3 g/dL (6.4-8.9)
[2019-06-22 08:03] LABS: Anaplasma phagocytophilium <1:64 titer (<1:64); Ehrlichia chaffeensis IgG AB <1:64 titer (<1:64); Lyme Disease Serology Negative (Negative)
[2019-06-22 08:07] LABS: ABS Lymphocytes 1.2 10^3/ul (1.0-4.8); ABS Monocytes 0.8 10^3/ul (0-0.8); Eosinophil % 0.2 %; Lymphocyte % 5.5 %
[2019-06-22] MEDS: Multivitamins/Minerals TAB PO SCH (08:25)
[2019-06-22] MEDS: Dexmedetomidine 1,000 MCG in NS 0.9% 250 ml 240 ML IV SCH (09:33)
[2019-06-22] MEDS ORDERED: Vancomycin Trough Check NOTE FOLLOW UP ONE (13:30)
[2019-06-22] MEDS: [UNRECOGNIZED DRUG - OTHER] IV SCH (13:39)
[2019-06-22] MEDS: NOREPINEPHRINE IV SCH (13:39)
[2019-06-22] MEDS: NS 0.9% IV SCH (13:39)
[2019-06-22] MEDS ORDERED: Heparin 5000 UNITS/ML 1 mL VIAL SUBCUT SCH (15:00)
[2019-06-22] MEDS: Heparin 5000 UNITS/ML 1 mL VIAL SUBCUT SCH (15:10)
[2019-06-22] MEDS: Thiamine 100 MG/ML 2 ml VIAL 250 MG in NS 0.9% 100 ml BAG 100 ML IV SCH (17:03)
[2019-06-22] MEDS: Famotidine IV 10 MG/ML 2 ml VIAL (20 mg) IV SLOW PU SCH (20:24)
[2019-06-22] MEDS ORDERED: fentaNYL 100 mcg/2 ml 50 MCG/ML VIAL IV SLOW PU PRN (23:39)
[2019-06-23] MEDS ORDERED: Alteplase (CATHFLO) 2 MG VIAL IV ONE
[2019-06-23] MEDS: Chlorhexidine MOUTHWASH 0.12% 15 ML UDC SWISH SPIT SCH ×6 (00:14→20:37)
[2019-06-23] MEDS: LaCOSAMide VIAL 100 MG in NS 0.9% 50 ML 50 ML IVPB SCH ×2 (01:55→14:07)
[2019-06-23] MEDS: Heparin 5000 UNITS/ML 1 mL VIAL SUBCUT SCH ×2 (02:00→13:45)
[2019-06-23] MEDS: Vancomycin 500 MG in NS 0.9% 250 ml 250 ML IVPB SCH ×2 (02:36→14:55)
[2019-06-23] MEDS: Lactulose 30 ml UDC NG TUBE SCH ×3 (04:41→20:37)
[2019-06-23 04:54] LABS: Albumin 1.9 g/dL (3.2-5.2); Calcium 8.2 mg/dL (8.6-10.3); Potassium 3.7 mmol/L (3.5-5.0)
[2019-06-23 05:00] LABS: Albumin/Globulin Ratio 0.7 (1-3); BUN/Creatinine Ratio 29.9 (8-20); EGFR African American 32.9 (>60); EGFR Non-African American 27.2 (>60); Globulin 2.8 g/dL (2-4); Total Protein 4.7 g/dL (6.4-8.9)
[2019-06-23 05:12] LABS: ABS Basophils 0.1 10^3/ul (0-0.2); ABS Lymphocytes 0.4 10^3/ul (1.0-4.8); ABS Monocytes 0.3 10^3/ul (0-0.8); Hematocrit 25 % (35-47); Hemoglobin 8.1 g/dL (12.0-16.0); Lymphocyte % 2.1 %; Mean Corpuscular HGB Conc 32 g/dL (31-36); Mean Corpuscular Hemoglobin 29 pg (27-31); Mean Corpuscular Volume 92 fL (80-97); Mean Platelet Volume 9.6 fL (7.4-10.4); Platelet Count 82 10^3/uL (150-450); Red Blood Count 2.76 10^6 /uL (3.70-4.87); Red Cell Distribution Width 18 % (10-15); White Blood Count 19.1 10^3/uL (3.5-10.8)
[2019-06-23 05:13] LABS: INR 1.27 (0.82-1.09)
[2019-06-23] MEDS: Propofol* 20 ML VIAL - FOR IV LINE PRIMING ONLY SCH (05:18)
[2019-06-23] MEDS: cefTRIAXone 2 GM ADDV.VIAL 2 GM in NS 0.9% 100 ml BAG 100 ML IVPB SCH ×2 (05:39→16:58)
[2019-06-23] MEDS: Albuterol 2.5mg/3 ml (0.083%) NEB.SOLN INH SCH ×2 (08:10→19:52)
[2019-06-23] MEDS: Acetylcysteine INHALATION SOL 200 MG/ML NEB.SOLN 10 ML INH SCH ×2 (08:10→19:52)
[2019-06-23] MEDS: Multivitamins/Minerals TAB PO SCH (08:11)
[2019-06-23] MEDS: Polyethylene Glycol 3350 17 GM PACKET PO SCH (08:11)
[2019-06-23] MEDS: Thiamine 100 MG/ML 2 ml VIAL 250 MG in NS 0.9% 100 ml BAG 100 ML IV SCH (17:41)
[2019-06-23] MEDS: Famotidine IV 10 MG/ML 2 ml VIAL (20 mg) IV SLOW PU SCH (20:37)
[2019-06-24] MEDS: Chlorhexidine MOUTHWASH 0.12% 15 ML UDC SWISH SPIT SCH ×4 (00:22→12:53)
[2019-06-24] MEDS: Heparin 5000 UNITS/ML 1 mL VIAL SUBCUT SCH (01:47)
[2019-06-24] MEDS: Vancomycin 500 MG in NS 0.9% 250 ml 250 ML IVPB SCH (01:47)
[2019-06-24] MEDS: NS 0.9% IV SCH (02:20)
[2019-06-24] MEDS: NOREPINEPHRINE IV SCH (02:20)
[2019-06-24] MEDS: [UNRECOGNIZED DRUG - OTHER] IV SCH (02:20)
[2019-06-24] MEDS: Lactulose 30 ml UDC NG TUBE SCH ×2 (05:08→12:54)
[2019-06-24] MEDS: cefTRIAXone 2 GM ADDV.VIAL 2 GM in NS 0.9% 100 ml BAG 100 ML IVPB SCH (05:09)
[2019-06-24 05:11] LABS: Hematocrit 24 % (35-47); Hemoglobin 7.8 g/dL (12.0-16.0); Mean Corpuscular HGB Conc 33 g/dL (31-36); Mean Corpuscular Hemoglobin 30 pg (27-31); Mean Corpuscular Volume 91 fL (80-97); Mean Platelet Volume 10.4 fL (7.4-10.4); Platelet Count 104 10^3/uL (150-450); Red Blood Count 2.58 10^6 /uL (3.70-4.87); Red Cell Distribution Width 18 % (10-15); White Blood Count 24.4 10^3/uL (3.5-10.8)
[2019-06-24 05:21] LABS: ALT 32 U/L (7-52); Albumin 1.8 g/dL (3.2-5.2); Albumin/Globulin Ratio 0.6 (1-3); Alkaline Phosphatase 315 U/L (34-104); BUN/Creatinine Ratio 27.7 (8-20); Blood Urea Nitrogen 66 mg/dL (6-24); CO2 Carbon Dioxide 18 mmol/L (22-32); Calcium 8.5 mg/dL (8.6-10.3); EGFR African American 24.9 (>60); EGFR Non-African American 20.6 (>60); Globulin 2.8 g/dL (2-4); Glucose 92 mg/dL (70-100); Total Protein 4.6 g/dL (6.4-8.9)
[2019-06-24 05:51] LABS: Anion Gap 6 mmol/L (2-11); Chloride 127 mmol/L (101-111); Sodium 151 mmol/L (135-145)
[2019-06-24 06:31] LABS: Potassium Redraw 4.4 mmol/L (3.5-5.0)
[2019-06-24 07:33] LABS: ABS Basophils 0.1 10^3/ul (0-0.2); ABS Lymphocytes 0.5 10^3/ul (1.0-4.8); ABS Monocytes 0.4 10^3/ul (0-0.8); Eosinophil % 0.1 %; Lymphocyte % 1.9 %; Nucleated Red Blood Cells % 0.1
[2019-06-24 07:36] LABS: Polychromasia 1+
[2019-06-24] MEDS: Multivitamins/Minerals TAB PO SCH (09:30)
[2019-06-24] MEDS: Polyethylene Glycol 3350 17 GM PACKET PO SCH (09:55)
[2019-06-24] MEDS: Acetylcysteine INHALATION SOL 200 MG/ML NEB.SOLN 10 ML INH SCH (10:21)
[2019-06-24] MEDS: Albuterol 2.5mg/3 ml (0.083%) NEB.SOLN INH SCH (10:21)
[2019-06-24] MEDS ORDERED: Atropine 1% (ORAL/SL) 15 ML BTL SL PRN (13:17)
[2019-06-24] MEDS ORDERED: LORazepam 2 mg VIAL 1 ml IV PUSH PRN ×2 (13:17→13:20)
[2019-06-24] MEDS ORDERED: Lorazepam PYXIS KEY PRN (13:28)
[2019-06-24] MEDS ORDERED: Vancomycin Trough Check NOTE FOLLOW UP ONE (13:30)
[2019-06-24] MEDS ORDERED: LORazepam 2 mg VIAL 1 ml IV PUSH ONE (13:40)
[2019-06-24] MEDS ORDERED: Morphine 10 MG/ML VIAL (1 ml) IV ONE (13:40)
[2019-06-24 15:26] VITALS: BP 80/42
== END 2019-06-24 14:05 | disposition expired | DRG 896 ==
LOC: ED 09:38 → MEDTELE 14:27 → ICU 06-18 17:39 → UNDODISIN 06-24 14:05
PROVIDERS: ADMIT Internal Medicine; ATTEND Internal Medicine Critical Care Medicine
PROC: 4A00X4Z Measurement of Central Nervous Electrical Activity, External Approach (ICD-10-PCS; 2019-06-17)
PROC: 06HM33Z Insertion of Infusion Device into Right Femoral Vein, Percutaneous Approach (ICD-10-PCS; 2019-06-18)
PROC: 0BH17EZ Insertion of Endotracheal Airway into Trachea, Via Natural or Artificial Opening (ICD-10-PCS; principal; 2019-06-19)
PROC: 5A1955Z Respiratory Ventilation, Greater than 96 Consecutive Hours (ICD-10-PCS; 2019-06-19)
PROC: 3E043XZ Introduction of Vasopressor into Central Vein, Percutaneous Approach (ICD-10-PCS; 2019-06-19)
PROC: 0B978ZZ Drainage of Left Main Bronchus, Via Natural or Artificial Opening Endoscopic (ICD-10-PCS; 2019-06-20)
PROC: 0B938ZZ Drainage of Right Main Bronchus, Via Natural or Artificial Opening Endoscopic (ICD-10-PCS; 2019-06-20)